=== PATIENT | female | born 1940 | race Caucasian/White ===

== ENCOUNTER 2016-10-24 13:07 | Observation (INO) | payer MEDICARE, MEDICAID ==
[~2016-10-24] VITALS: Ht 160 cm; Wt 91.0 kg
[~2016-10-24 13:07] MED LIST: ADULT LOW DOSE81 MG PO; ALBUTEROL-200 PUFFS/ IH; ALTOPREV20 MG PO; ASPIRIN 81MG TA81 MG PO; BACTROBAN2% TP; DYAZIDE CAP (M1 EACH PO; ETODOLAC400 MG PO; FERROUS GLUCON324 M1 PO; FLUTICASONE 50M16 GM; HYDROCORTI30 GM/TUB1 TP; IRON TABLETS325 MG PO; ISOSORBIDE MONO30 MG PO; LACTULOSE10 GM/15 M PO; LEVOTHYROXIN0.075 M1 PO; LIDOCAINE5 GM TP; LISINOPRIL 20MG20 MG PO; LOPRESSOR 25MG.25 MG PO; LOVASTATIN20 MG PO; MECLIZINE HYDRO25 MG PO; METOPROLOL25 MG PO; OMEPRAZOLE40 MG PO; POTASS CHL20 MEQ/15 NG; POTASS CHL20 MEQ/15 PO; RANEXA500 M1 PO; SERTRALINE 50MG50 MG PO; SERTRALINE25 MG PO; SYNTHROID 0.0.075 MG PO; TRAMADOL 50MG T50 M1 PO; TRIAMTERENE/HCT1 CA1 PO; VENTOLIN H0.09 MG/AC IH; ZOFRAN ODT4 MG PO
[2016-10-24 13:08] VITALS: BP 103/98
[2016-10-24] MEDS ORDERED: RANEXA500 M1 PO (13:18)
[2016-10-24] MEDS ORDERED: MECLIZINE HYDRO25 MG PO (13:19)
--- NOTE | 2016-10-24 13:27 | Emergency Room Report ---
See Addendum History of Present Illness Time Seen by MD Edmond Presenting Problem in Triage Pt arrived:Walked Presenting Problem:PT STATES SHE HAS HAD CHEST PAIN FOR THE PAST 2 WEEKS. PT DESCRIBES PAIN A DULL HURT THAT MOVES AROUND, NAUSEA AT TIMES. 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 N Clinical Suspician of Infection? N Mental Status: 1 - Regular (Normal Baseline) Sepsis Risk:Low Sepsis Risk Have you (or family members/close friends) recently traveled outside the [place]? N If Yes, where/when: Have you had exposure to infectious disease within the past month? TB? Other? Specify: Patient states she has some chest tightness and some intermittent shortness of breath and some nausea she states she has a stress test last about 1-2 years ago she denies any fever chills or cough. Eyes any pleuritic component to it denies any abdominal pain or headache she states currently she has some moderate tightness in the center of her chest no radiation. ALLERGIES Coded Allergies: Cephalosporins (Mild, 10/08/15) Quinolones (Mild, 10/08/15) cefuroxime (Mild, 10/08/15) cephalexin (From KEFLEX) (Mild, NA-NAUSEA 06/03/15) ciprofloxacin (From CIPRO) (Mild, NA-NAUSEA 06/03/15) levofloxacin (From LEVAQUIN) (Mild, I-RASH 06/03/15) morphine (Mild, NA-NAUSEA 06/03/15) penicillin G (Mild, 10/08/15) Home Medications Reported Medications Potassium Chloride 20 MEQ PO DAILY Hydrochlorothiazide W/Triamter (Triamterene-Hctz 37.5-25 MG Cp) 1 CAP PO DAILY Lovastatin 20 MG PO DAILY Isosorbide Mononitrate (Isosorbide Mononitrate ER) 30 MG PO DAILY Ferrous Gluconate 324 MG PO DAILY Albuterol (Albuterol-Hfa Inhaler) 2 PUFF IH Q4HP PRN SHORTNESS OF AIR Levothyroxine Sodium (Levothyroxine 0.075MG) 0.075 MG PO DAILY Omeprazole (Omeprazole 40MG) 40 MG PO DAILY ASPIRIN (Aspirin) 81 MG PO DAILY Isosorbide Mononitrate (Isosorbide Mononitrate ER) 30 MG PO DAILY LISINOPRIL (Lisinopril) 20 MG PO TWICE DAILY Metoprolol Tartrate (Metoprolol) 25 MG PO BID Sertraline Hcl (Sertraline 50MG) 25 MG PO DAILY TRAMADOL HCL (Tramadol) 50 MG PO TID PRN ALBUTEROL (Ventolin Hfa) 1 PUFF IH Q6H6 RANOLAZINE (RANEXA) 500 MG PO BID Meclizine Hcl (Meclizine Hydrochloride) 25 MG PO TIDP PRN DIZZY History Medical History General CAD? No Angina: No [place]: No Hypertension? Yes Hyperlipidemia? Yes COPD? Yes Asthma? Yes Thyroid Problems? Yes CVA? Yes Seizures? No Diabetes? No Migraines? Yes Anxiety? No Depression? Yes Cancer? No Immunization Hx DT/Tetanus Unknown Pneumonia Refuses Surgical Hx Previous Surgery?Y hysterectomy Cholecystectomy right arm surgery Family History Family Hx Diabetes No CAD No Hypertension No Hyperlipidemia No Cancer No TB No Social History Smoking Hx Smoker: Never Smoker Tobacco: No Alcohol Alcohol: No Review of Systems All Other Systems Reviewed and Negative Physical Exam Vital Signs Vital Signs Date Time Temp Pulse Resp B/P Pulse O2 O2 Flow FiO2 Ox Delivery Rate 10/24 1512 63 18 164/82 98 10/24 1308 73 18 103/98 98 General Appearance: Nontoxic morbidly obese Head: Normocephalic, without obvious abnormality, atraumatic. Eyes: conjunctiva/corneas clear ENT: Mucous membranes moist. Neck: No jugular venous distention. Cardiac: regular rate and rhythm Lungs: Clear to auscultation bilaterally Abdomen: Nontender, Nondistended, positive bowel sounds, no rebound : No CVA tenderness Extremities: Trace edema Musculoskeletal: No chest wall tenderness No Homans sign No calf tenderness No swelling in legs Skin: No rashes or lesions to exposed skin. Neurologic: Alert. No gross focal deficits Psychiatric: Normal affect (Ji CABRERA, Ronal) General Appearance normal appearance Respiratory Status No: respiratory distress. Cardiovascular no JVD Neurologic alert Medical Decision Making LABS/Meds/Orders Pt receiving controlled substance in ED? No Comment chest x-ray read as no acute disease by radiologist 343 call out to Mike Results/Orders Laboratory Tests 10/24/16 1315: B-Natriuretic Peptide 234 H 10/24/16 1315: Sodium 134 L, Potassium 3.4 L, Chloride 98, Carbon Dioxide 29, BUN 20 H, Creatinine 1.2 H, Estimated Creat Clear 57, Estimated GFR (MDRD) 44 L, Glucose 83, Calcium 10.2 H, Total Bilirubin 0.3, AST 19, ALT 22, Alkaline Phosphatase 71, Creatine Kinase 99, CK-MB (CK-2) Rel Index 2.4, CK and CKMB Interp 2.4, Troponin I < 0.02, Total Protein 7.6, Albumin 3.7, Globulin 3.9 H, Albumin/ Globulin Ratio 0.9 L, WBC 10.1, RBC 4.50, Hgb 11.7 L, Hct 34.6 L, MCV 76.9 L , RDW 16.5, Plt Count 213, Gran % 74.2, Gran # 7.5, Lymphocytes % 20.1, Monocytes % 5.7, Lymphocytes # 2.0, Monocytes # 0.6, PUBS MCHC 33.8, MCH 26.0 L Current Medication Orders Sig/Shala Start time Last Medication Dose Route Stop Time Status Admin Aspirin 0 .STK-MED ONE 10/24 1441 DC .ROUTE Aspirin 324 MG ONCE ONE 10/24 1330 DC 10/24 PO 10/24 1331 1443 Nitroglycerin 0.4 MG [id number] PRN 10/24 1330 AC SL Sodium Chloride 10 ML PRN PRN 10/24 1330 AC IV 10/25 1320 Orders Procedure Date/time Status BRAIN NATRIURETIC PEPTIDE 10/24 1328 Complete ELECTROCARDIOGRAM REQUEST 10/24 1320 Active IV SALINE LOCK 10/24 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 CBC WITH AUTO DIFF 10/24 1320 Complete CARDIAC ENZYMES 10/24 1320 Complete CHEM 12 PROFILE 10/24 1320 Complete 12 [facility]AD [facility] (INITIAL) 10/24 UNK 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
--- NOTE | 2016-10-24 13:27 | Emergency Room Report ---
See Addendum History of Present Illness Time Seen by MD Edmond Presenting Problem in Triage Pt arrived:Walked Presenting Problem:PT STATES SHE HAS HAD CHEST PAIN FOR THE PAST 2 WEEKS. PT DESCRIBES PAIN A DULL HURT THAT MOVES AROUND, NAUSEA AT TIMES. 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 N Clinical Suspician of Infection? N Mental Status: 1 - Regular (Normal Baseline) Sepsis Risk:Low Sepsis Risk Have you (or family members/close friends) recently traveled outside the [place]? N If Yes, where/when: Have you had exposure to infectious disease within the past month? TB? Other? Specify: Patient states she has some chest tightness and some intermittent shortness of breath and some nausea she states she has a stress test last about 1-2 years ago she denies any fever chills or cough. Eyes any pleuritic component to it denies any abdominal pain or headache she states currently she has some moderate tightness in the center of her chest no radiation. ALLERGIES Coded Allergies: Cephalosporins (Mild, 10/08/15) Quinolones (Mild, 10/08/15) cefuroxime (Mild, 10/08/15) cephalexin (From KEFLEX) (Mild, NA-NAUSEA 06/03/15) ciprofloxacin (From CIPRO) (Mild, NA-NAUSEA 06/03/15) levofloxacin (From LEVAQUIN) (Mild, I-RASH 06/03/15) morphine (Mild, NA-NAUSEA 06/03/15) penicillin G (Mild, 10/08/15) Home Medications Reported Medications Potassium Chloride 20 MEQ PO DAILY Hydrochlorothiazide W/Triamter (Triamterene-Hctz 37.5-25 MG Cp) 1 CAP PO DAILY Lovastatin 20 MG PO DAILY Isosorbide Mononitrate (Isosorbide Mononitrate ER) 30 MG PO DAILY Ferrous Gluconate 324 MG PO DAILY Albuterol (Albuterol-Hfa Inhaler) 2 PUFF IH Q4HP PRN SHORTNESS OF AIR Levothyroxine Sodium (Levothyroxine 0.075MG) 0.075 MG PO DAILY Omeprazole (Omeprazole 40MG) 40 MG PO DAILY ASPIRIN (Aspirin) 81 MG PO DAILY Isosorbide Mononitrate (Isosorbide Mononitrate ER) 30 MG PO DAILY LISINOPRIL (Lisinopril) 20 MG PO TWICE DAILY Metoprolol Tartrate (Metoprolol) 25 MG PO BID Sertraline Hcl (Sertraline 50MG) 25 MG PO DAILY TRAMADOL HCL (Tramadol) 50 MG PO TID PRN ALBUTEROL (Ventolin Hfa) 1 PUFF IH Q6H6 RANOLAZINE (RANEXA) 500 MG PO BID Meclizine Hcl (Meclizine Hydrochloride) 25 MG PO TIDP PRN DIZZY History Medical History General CAD? No Angina: No [place]: No Hypertension? Yes Hyperlipidemia? Yes COPD? Yes Asthma? Yes Thyroid Problems? Yes CVA? Yes Seizures? No Diabetes? No Migraines? Yes Anxiety? No Depression? Yes Cancer? No Immunization Hx DT/Tetanus Unknown Pneumonia Refuses Surgical Hx Previous Surgery?Y hysterectomy Cholecystectomy right arm surgery Family History Family Hx Diabetes No CAD No Hypertension No Hyperlipidemia No Cancer No TB No Social History Smoking Hx Smoker: Never Smoker Tobacco: No Alcohol Alcohol: No Review of Systems All Other Systems Reviewed and Negative Physical Exam Vital Signs Vital Signs Date Time Temp Pulse Resp B/P Pulse O2 O2 Flow FiO2 Ox Delivery Rate 10/24 1512 63 18 164/82 98 10/24 1308 73 18 103/98 98 General Appearance: Nontoxic morbidly obese Head: Normocephalic, without obvious abnormality, atraumatic. Eyes: conjunctiva/corneas clear ENT: Mucous membranes moist. Neck: No jugular venous distention. Cardiac: regular rate and rhythm Lungs: Clear to auscultation bilaterally Abdomen: Nontender, Nondistended, positive bowel sounds, no rebound : No CVA tenderness Extremities: Trace edema Musculoskeletal: No chest wall tenderness No Homans sign No calf tenderness No swelling in legs Skin: No rashes or lesions to exposed skin. Neurologic: Alert. No gross focal deficits Psychiatric: Normal affect (Ji CABRERA, Ronal) General Appearance normal appearance Respiratory Status No: respiratory distress. Cardiovascular no JVD Neurologic alert Medical Decision Making LABS/Meds/Orders Pt receiving controlled substance in ED? No Comment chest x-ray read as no acute disease by radiologist 343 call out to Mike Results/Orders Laboratory Tests 10/24/16 1315: B-Natriuretic Peptide 234 H 10/24/16 1315: Sodium 134 L, Potassium 3.4 L, Chloride 98, Carbon Dioxide 29, BUN 20 H, Creatinine 1.2 H, Estimated Creat Clear 57, Estimated GFR (MDRD) 44 L, Glucose 83, Calcium 10.2 H, Total Bilirubin 0.3, AST 19, ALT 22, Alkaline Phosphatase 71, Creatine Kinase 99, CK-MB (CK-2) Rel Index 2.4, CK and CKMB Interp 2.4, Troponin I < 0.02, Total Protein 7.6, Albumin 3.7, Globulin 3.9 H, Albumin/ Globulin Ratio 0.9 L, WBC 10.1, RBC 4.50, Hgb 11.7 L, Hct 34.6 L, MCV 76.9 L , RDW 16.5, Plt Count 213, Gran % 74.2, Gran # 7.5, Lymphocytes % 20.1, Monocytes % 5.7, Lymphocytes # 2.0, Monocytes # 0.6, PUBS MCHC 33.8, MCH 26.0 L Current Medication Orders Sig/Shala Start time Last Medication Dose Route Stop Time Status Admin Aspirin 0 .STK-MED ONE 10/24 1441 DC .ROUTE Aspirin 324 MG ONCE ONE 10/24 1330 DC 10/24 PO 10/24 1331 1443 Nitroglycerin 0.4 MG [id number] PRN 10/24 1330 AC SL Sodium Chloride 10 ML PRN PRN 10/24 1330 AC IV 10/25 1320 Orders Procedure Date/time Status BRAIN NATRIURETIC PEPTIDE 10/24 1328 Complete ELECTROCARDIOGRAM REQUEST 10/24 1320 Active IV SALINE LOCK 10/24 1320 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 CBC WITH AUTO DIFF 10/24 1320 Complete CARDIAC ENZYMES 10/24 1320 Complete CHEM 12 PROFILE 10/24 1320 Complete 12 LEAD EKG-[facility] (INITIAL) 10/24 UNK Active 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
[2016-10-24 13:30] LABS: HEMOGLOBIN 11.7 g/dL (12.2-16.2)
[2016-10-24 13:31] LABS: LYMPH % 20.1 % (10-50.0)
[2016-10-24 13:51] LABS: BUN 20 mg/dL (7-18); GFR (ESTIMATED) 44 ML/MIN (59-)
--- NOTE | 2016-10-24 14:11 | RADIOLOGY REPORT PS360 ---
CHEST-PORTABLE HISTORY: CHEST PAIN ORDERING PHYSICIAN: Ronal Workman MD PATIENT AGE: 76 years COMPARISON: 06/29/2008 FINDINGS: The cardiomediastinal silhouette and pulmonary vascularity are within normal limits. The lungs are clear without infiltrates, suspicious nodules, or pleural effusions. No acute bony abnormalities. Bone plate is present over the right proximal humerus IMPRESSION: No acute finding
--- OUTSIDE RECORDS SUMMARY | 2016-10-24 16:27 | External Medical Summary Rpt ---
Author Author , Organization [employer] Address Unknown Phone Unavailable Care Team Providers [facility] Counselor Name Role Phone [facility] Unavailable Unavailable ON ESDRAS, [facility] ON E[facility]RAS [facility] Unavailable Unavailable ON ESDRAS, [facility] ON ESDRAS HORNER ALL, HORNER ALL Unavailable Unavailable HORNER FLAKITA, HORNER FLAKITA Unavailable Unavailable [facility] Un[facility]available [facility], [facility] TESSIE AVTAR, TESSIE Unavailable Unavailable AVTAR [facility], Unavailable Unavailable [facility] JOSE GARCIA Unavailable Unavailable GARCIA EMERY, GARCIA Unavailable Unavailable EMERY [facility], Unavailable Unavailable [facility] ALMAGUER ANNAMARIE, ALMAGUER ANNAMARIE Unavailable Unavailable CHACHO FREDDY, Unavailable Unavailable CHACHO FREDDY [facility] Unavailable Unavailable [facility], [facility] MC II THO, MC II Unavailable Unavailable THO FALLIS PLACIDO, FALLIS Unavailable Unavailable PL[facility] Unavailable Unavailable TRANSP[facility]ATION [facility], [facility] FRYMAN, FRYMAN Unavailable Unavailable YOLANDA LEIGHTON, YOLANDA Unavailable Unavailable LEIGHTON RACHEL RHO, RACHEL Unavailable Unavailable RHO [facility] Un[facility] Un[facility], [facility], Unavailable Unavailable [facility] PHYS[facility]IAN GROUP [facility], Unavailable Unavailable [facility] MARLOW CAROLA, MARLOW CAROLA Unavailable Unavailable [facility] Unavailable Unavailable MEDICAL G, [facility] Unavailable Unavailable [facility], [facility] Unavailable Unavailable [facility], [facility] ARELLANO, ARELLANO Unavailable Unavailable ARELLANO MONSTER, ARELLANO Unavailable Unavailable MONSTER ARELLANO MONSTER, ARELLANO Unavailable Unavailable MONSTER DRU JR DWI, DRU Unavailable Unavailable JR DWI CHUCKIE ART, CHUCKIE Unavailable Unavailable ART PEARCE JAM, Unavailable Unavailable PEARCE JAM [facility] Unavailable Unavailable AMBULANCE SE, [facility] Unavailable Unavailable AMBULANCE SE, [facility], N[facility]UC[facility] Unavailable Unavailable [facility] ANNAMARIE ALMAGUER MD Unavailable Unavailable CONSULTING SRV, ANNAMARIE ALMAGUER MD CONSULTING SRV [facility], Unavailable Unavailable PLL[facility], [facility] PAVEZ MAR, PAVEZ MAR Unavailable Unavailable ISAM TOD, ISMA TOD Unavailable Unavailable SCALF NAS, SCALF NAS Unavailable Unavailable NAE LEIGHTON, Unavailable Unavailable NAE LEIGHTON SCIFRES, SCIFRES Unavailable Unavailable KOHLI SERA, KOHLI Unavailable Unavailable SERA KLAIN, KALIN Unavailable Unavailable KALIN MAT, Unavailable Unavailable KALIN MAT [facility] Unavailable Unavailable [facility], [facility] Unavailable Unavailable [facility], [facility] SOTINGEANU SERA, Unavailable Unavailable SOTINGEANU SERA [facility] Unavailable Unavailable [facility], [facility] Unavailable Unavailable MELLY, [facility] MELLY BILLY, BILLY Unavailable Unavailable BILLY RAY, BILLY Unavailable Unavailable [facility] Unavailable Unavailable HOSPITALS, [facility], Unavailable Unavailable [facility], Unavailable [facility]available [facility], Unavailable [facility]available [facility] Purpose Continuity of Care Document - 06-01-2014 through 2016 Problems Code Diagnosis DOS Provider Status J449 CHRONIC 10-03-2016 [facility] DISEASE UNS I10 ESSENTIAL 09-27-2016 [facility] PRIMARY AREA AGENCY HYPERTENSIO ON ESDRAS N E039 HYPOTHYROID 09-22-2016 [facility] ISM PHYSICIANS UNSPECIFIED GROUP [id number] OTHER 09-10-2016 [facility] N3281 OVERACTIVE 09-03-2016 [facility] BLADDER PHYSICIANS GROUP N3941 URGE 09-03-2016 [facility] INCONTINENC PHYSICIANS E GROUP H2513 AGE-RELATED 08-18-2016 [facility] BILATERAL R922 INCONCLUSIV 07-31-2016 [facility] R928 OTH ABNORM 07-31-2016 [place] [facility] IMAGING ASS E FIND ON DX IMAG BREAST E785 HYPERLIPIDE 07-09-2016 [facility] RADHA PHYSICIANS UNSPECIFIED GROUP R0789 OTHER CHEST 07-09-2016 [facility] PAIN PHYSICIANS GROUP R69 ILLNESS 07-09-2016 [facility] UNSPECIFIED TRANSPORTAT ION SER K219 GASTRO-ESOP 06-30-2016 [facility] REFLUX HEALTHCARE DISEASE HOSPITALS WITHOUT ESOPHAGITIS 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 [facility] GOITER PHYSICIAN UNSPECIFIED GROUP E069 THYROIDITIS 06-18-2016 [facility] PHYSICIAN UNSPECIFIED GROUP E8352 HYPERCALCEM 06-18-2016 [facility] IA PHYSICIAN GROUP 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 06-18-2016 [facility] 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 ANGINA PECTORIS K469 UNS 06-18-2016 [facility] ABDOMINAL PHYSICIAN HERNIA W/O GROUP OBSTRUCTION OR GANGRENE N3946 MIXED 06-18-2016 [facility] INCONTINENC PHYSICIANS E GROUP E119 TYPE 2 04-22-2016 [facility] DIABETES [facility] MELLITUS INC WITHOUT COMPLICATIO NS E669 OBESITY 04-22-2016 [facility] UNSPECIFIED PHYSICIANS GROUP R0602 SHORTNESS 04-22-2016 [facility] OF BREATH [facility] INC T26162 UNSPECIFIED 04-18-2016 [facility] UNCOMPLICAT MEDICAL ED EQUIPME R0600 DYSPNEA 04-15-2016 [facility] UNSPECIFIED PHYSICIANS GROUP R110 NAUSEA 03-31-2016 [facility] AMBULANCE SE R42 DIZZINESS 03-31-2016 [facility] AMBULANCE SE M150 PRIMARY 03-03-2016 [facility] GENERALIZED HOME MEDICAL OSTEOARTHRI EQUIPME TIS M533 SACROCOCCYG 03-03-2016 [facility] EAL HOME DISORDERS MEDICAL NEC EQUIPME M549 DORSALGIA 03-03-2016 [facility] UNSPECIFIED HOME MEDICAL EQUIPME R06078 DIFFUSE 02-28-2016 ARELLANO MONSTER OTITIS EXTERNA BILATERAL H6903 PATULOUS 02-28-2016 ARELLANO MONSTER EUSTACHIAN TUBE BILATERAL H905 UNSPECIFIED 02-28-2016 [facility] PHYSICIANS SENSORINEUR GROUP AL HEARING LOSS G4733 OBSTRUCTIVE 02-27-2016 [facility] SLEEP HOME APNEA ADULT MEDICAL PEDIATRIC EQUIPME R079 CHEST PAIN 02-14-2016 [facility] UNSPECIFIED [facility] INC G4730 SLEEP APNEA 02-12-2016 [facility] UNSPECIFIED INC H6590 UNSPECIFIED 02-01-2016 [facility] PHYSICIANS NONSUPPURAT GROUP MIGUE OTITIS MEDIA UNS EAR R040 EPISTAXIS 02-01-2016 [facility] PHYSICIANS GROUP Z1231 ENCOUNTER 01-25-2016 [facility] MALIG IMAGING ASS NEOPLASM BREAST G8929 OTHER 01-07-2016 [facility] CHRONIC PHYSICIANS PAIN GROUP D649 ANEMIA 12-27-2015 [facility] J342 DEVIATED 12-13-2015 [facility] NASAL PHYSICIANS SEPTUM GROUP I351 NONRHEUMATI 12-07-2015 [facility] INSUFFICIEN CY I358 OTHER 12-07-2015 [facility] NONRHEUMATI MEM [facility]OS[facility] C AORTIC INC VALVE DISORDERS J432 CENTRILOBUL 12-07-2015 [facility] EMPHYSEMA IMAGING ASS J984 OTHER 12-07-2015 [facility] DISORDERS [facility] OF LUNG INC Z862 PERSONAL HX 12-07-2015 [facility] DZ [facility] BLOOD&BLOOD INC FORM ORGN IMMUNE MECH B351 TINEA 11-29-2015 [facility] PLACIDO UNGUIUM I890 LYMPHEDEMA 11-29-2015 [facility] NOT ELSEWHERE CLASSIFIED M2570 OSTEOPHYTE 11-29-2015 [place] [facility] UNSPECIFIED JOINT A71835 PAIN IN 11-29-2015 [place] [facility] RIGHT TOES S40704 PAIN IN 11-29-2015 [place] [facility] LEFT TOES F18386 PRIMARY 11-28-2015 [place] OSTEOARTHRI [facility]ICAL TIS RIGHT IMAGING ASS HAND S02886 PAIN IN 11-28-2015 [place] RIGHT HAND MEDICAL IMAGING ASS M7989 OTHER 11-28-2015 [place] SPECIFIED MEDICAL SOFT TISSUE IMAGING ASS DISORDERS R0902 HYPOXEMIA 11-28-2015 [facility] R109 UNSPECIFIED 11-28-2015 [facility] ABDOMINAL SERV PAIN [facility]OUND[facility] H3531LZ UNS FX RT 11-28-2015 [facility] WRIST HAND SERV INITIAL ENC FOUNDATION CLOS FRACTURE Z8673 PERSONAL HX 11-28-2015 [facility] TIA & MEM [facility]OS[facility] CEREB INC INFARCT NO RESID DEFICIT G85787 PERSONAL 11-28-2015 [facility] HISTORY OF MEM HOS[facility] OTHER INC SPECIFIED CONDITIONS H6092 UNSPECIFIED 11-22-2015 [facility] OTITIS PHYSICIANS EXTERNA GROUP LEFT EAR J029 ACUTE 11-22-2015 [facility] PHARYNGITIS PHYSICIANS GROUP UNSPECIFIED L989 DISORDER 11-19-2015 [facility] THE SKIN & PHYSICIANS SUBCUTANEOU GROUP S TISSUE UNS I209 ANGINA 11-13-2015 [facility] PECTORIS PHYSICIANS UNSPECIFIED GROUP B50283 PERSONAL 10-24-2015 [facility] SERV NICOTINE FOUNDATION DEPENDENCE O29228 ASHD TLINGIT & HAIDA 10-08-2015 [facility] COR ARTREY PHYSICIANS W/UNS GROUP ANGINA PECTORIS B078 OTHER VIRAL 09-27-2015 [facility] WARTS A43903 PAIN IN 09-27-2015 [place] [facility] LEFT FOOT N952 POSTMENOPAU 08-29-2015 [facility] TIFFANY PHYSICIANS ATROPHIC GROUP VAGINITIS R350 FREQUENCY 08-29-2015 [facility] OF PHYSICIANS MICTURITION GROUP R351 NOCTURIA 08-29-2015 [facility] PHYSICIANS GROUP E042 NONTOXIC 07-18-2015 [place] MULTINODULA MEDICAL R GOITER IMAGING ASS M88275 PAIN IN 06-04-2015 [facility] RIGHT LEG [facility] INC Y51775 PAIN IN 06-04-2015 [place] RIGHT LOWER MEDICAL LEG IMAGING ASS W43212 ACUTE EMBO 06-03-2015 [facility] THROMB UNS [facility] DEEP VEINS INC RT LOWER EXTREM L309 DERMATITIS 06-03-2015 [facility] UNSPECIFIED MEM HOS[facility] INC A57428 PAIN IN 06-03-2015 [facility] E780 PURE 05-28-2015 [facility] H8110 BENIGN 05-28-2015 [facility] UNSPECIFIED EAR H8112 BENIGN 05-28-2015 [facility] PAROXYSMAL N EMERGENCY VERTIGO PHYS LEFT EAR Z7982 FCI 05-28-2015 [place] CURRENT [facility] Y79851 OTHER LONG 05-28-2015 [facility] DRUG THERAPY G4710 HYPERSOMNIA 05-01-2015 ANNAMARIE ALMAGUER MD UNSPECIFIED CONSULTING SRV G478 OTHER SLEEP 04-28-2015 [facility] M5383 OTHER SPEC 04-28-2015 [place] [facility] CERVICOTHOR ACIC REGION R0683 SNORING 04-28-2015 [facility] E041 NONTOXIC 04-04-2015 [facility] THYROID INC NODULE 2449 UNSPECIFIED 02-16-2015 [facility] HYPOTHYROID IMAGING ASS ISM 62910 DYSPHAGIA 02-16-2015 [place] UNSPECIFIED [facility]ICAL IMAGING ASS 4139 OTHER AND 02-14-2015 [facility] UNSPECIFIED HEALTH ANGINA MEDICAL G PECTORIS 90923 CHEST PAIN 02-14-2015 [facility] UNSPECIFIED HEALTH MEDICAL G 2720 PURE 02-04-2015 [facility] 4019 UNSPECIFIED 02-04-2015 [place] ESSENTIAL [facility] N 496 CHRONIC 02-04-2015 [place] AIRWAY [facility] OBSTRUCTION HOSPITAL NEC 89615 ESOPHAGEAL 02-04-2015 [place] REFLUX [facility] 7804 DIZZINESS 02-04-2015 [facility] N EMERGENCY GIDDINESS PHYS 26004 NAUSEA WITH 02-04-2015 [place] VOMITING [facility] V5869 LONG-TERM 02-04-2015 [place] (CURRENT) [facility]ITY USE OF HOSPITAL OTHER MEDICATIONS 16362 GEN 02-01-2015 [facility] OSTEOARTHRO HOME SIS MEDICAL INVOLVING EQUIPME MULTIPLE SITES 7245 UNSPECIFIED 02-01-2015 [facility] BACKACHE HOME MEDICAL EQUIPME 22160 OTHER 02-01-2015 [facility] DISORDER OF HOME COCCYX MEDICAL EQUIPME 91866 UNSPECIFIED 01-05-2015 [facility] URINARY HOME INCONTINENC MEDICAL E EQUIPME 09325 VOMITING 10-25-2014 [place] ALONE [facility] V5866 LONG-TERM 10-25-2014 [place] USE OF [facility] 7295 PAIN IN 10-20-2014 [facility] [place] SOFT [facility] TISSUES OF LIMB 9594 INJURY 10-20-2014 [place] OTHER AND COMMUNITY UNSPECIFIED HOSPITAL HAND EXCEPT FINGER 4659 ACUTE URIS 09-28-2014 [place] OF COMMUNITY UNSPECIFIED HOSPITAL SITE 24152 PAIN IN 09-28-2014 [facility] [place] JOINT, RADIOLOGY LOWER LEG 75164 DEHYDRATION 07-31-2014 [facility] N EMERGENCY PHYS 2768 HYPOPOTASSE 07-31-2014 [facility] RADHA N EMERGENCY PHYS 4660 ACUTE 07-31-2014 [facility] BRONCHITIS N EMERGENCY PHYS 19163 OTHER CHEST 07-31-2014 [facility] PAIN N EMERGENCY PHYS V143 PERSONAL 07-31-2014 [place] HISTORY [facility] ANTI-INFECT MIGUE AGT V146 PERSONAL 07-31-2014 [place] HISTORY OF COMMUNITY ALLERGY TO HOSPITAL ANALGESIC AGENT 7851 PALPITATION 07-25-2014 ANNAMARIE Rose MD CONSULTING SRV 4011 ESSENTIAL 07-20-2014 [place] HYPERTENSIO [facility] 7197 DIFFICULTY 07-20-2014 [place] IN WALKING [facility] 34247 SHORTNESS 07-20-2014 ANNAMARIE ALMAGUER OF BRE[place] SRV 97257 PRECORDIAL 07-20-2014 ANNAMARIE ROSINA [place]V 26142 OCCLUSION&S 07-04-2014 ANNAMARIE DIOP MD CAROTID ART CONSULTING W/O SRV MENTION INFARCT 2809 UNSPECIFIED 06-23-2014 [facility] IRON [facility] DEFICIENCY HOLDINGS ANEMIA 5939 UNSPECIFIED 06-23-2014 [facility] DISORDER [facility] OF KIDNEY HOLDINGS AND URETER 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 E8889 UNSPECIFIED 06-02-2014 [facility] FALL [facility] HOLDINGS 8470 NECK SPRAIN 06-01-2014 [facility] STRAIN N EMERGENCY PHYS 920 CONTUSION 06-01-2014 [facility] FACE N EMERGENCY SCALP AND PHYS NECK EXCEPT EYE 9219 UNSPECIFIED 06-01-2014 [facility] CONTUSION N EMERGENCY OF EYE PHYS 77294 CONTUSION 06-01-2014 [facility] OF HAND N EMERGENCY PHYS 9248 CONTUSION 06-01-2014 [place] OF [facility] COMMUNITY SITES [facility] 42207 INJURY OF 06-01-2014 [facility] [place] FACE AND RADIOLOGY NECK OTHER AND UNSPECIFIED 44731 OTHER 06-01-2014 [facility] [place] INJURY OF RADIOLOGY CHEST WALL 9596 INJURY 06-01-2014 [facility] [place] OTHER AND RADIOLOGY UNSPECIFIED HIP AND THIGH V1582 PERS HX 06-01-2014 [place] TOBACCO USE [facility] HEALTH 786.50 E03.9 HYPOTHYROID ISM, UNSPECIFIED E83.52 HYPERCALCEM IA I10 ESSENTIAL (PRIMARY) HYPERTENSIO N I82.409 ACUTE EMBOLISM AND THOMBOS UNSP DEEP VN UNSP LOWER EXTREMITY J98.4 OTHER DISORDERS OF LUNG L30.9 DERMATITIS, UNSPECIFIED M17.12 UNILATERAL PRIMARY OSTEOARTHRI TIS, LEFT KNEE R01.1 CARDIAC MURMUR, UNSPECIFIED R07.9 CHEST PAIN, UNSPECIFIED R51 HEADACHE S80.02XA CONTUSION OF LEFT KNEE, INITIAL ENCOUNTER Z12.31 ENCNTR SCREEN MAMMOGRAM FOR MALIGNANT NEOPLASM OF BREAST Allergies, Adverse Reactions, Alerts Clinical Alert Notifications Alert Asthma: no influenza vaccine in the last 365 days Diabetes: no A1C in the last 6 months Diabetes: no influenza vaccine in the last 365 days Diabetes: no urine protein screening in the last 365 days Procedures Procedure DOS Code Location Performer Comment IPRATROPI J7644 YOUR YOUR UM 7 PHARMACY PHARMACY [facility] [employer] INHAL NON-CP U DOSE PER MG PHRM Q0513 YOUR YOUR DISPENSIN 7 PHARMACY PHARMACY G FEE [employer] INHALATIO N RX; PER 30 DAYS HOME CARE S5108 [employer] TRAINING 7 [facility] HOME AGENCY ON AGENCY ON CARE ESDRAS ESDRAS CLIENT PER 15 MIN HOME CARE S5108 [employer] TRAINING 7 [facility] AGENCY ON AGENCY ON CARE ESDRAS ESDRAS CLIENT PER 15 MIN HOME CARE S5108 [facility] TRA[facility] 7 ARE[facility] HOME AGENCY ON AGENCY ON CARE ESDRAS ESDRAS CLIENT PER 15 MIN HOME CARE S5108 [facility] TRAINING 7 ARE[facility] ARE[facility] HOME AGENCY ON AGENCY ON CARE ESDRAS ESDRAS CLIENT PER 15 MIN HOME CARE S5108 [facility] TRAINING 7 AREA AREA HOME AGENCY ON AGENCY ON CARE ESDRAS ESDRAS CLIENT PER 15 MIN HOME CARE S5108 [facility] TRAINING 7 AREA AREA HOME AGENCY ON AGENCY ON CARE ESDRAS ESDRAS CLIENT PER 15 MIN HOME CARE S5108 [facility] TRAINING 7 AREA AREA HOME AGENCY ON AGENCY ON CARE ESDRAS ESDRAS CLIENT PER 15 MIN HOME CARE S5108 [facility] TRAINING 7 AREA AREA HOME AGENCY ON AGENCY ON CARE ESDRAS ESDRAS CLIENT PER 15 MIN HOME CARE S5108 [facility] TRAINING 7 AREA AREA HOME AGENCY ON AGENCY ON CARE ESDRAS ESDRAS CLIENT PER 15 MIN HOME CARE S5108 [facility] TRAINING 7 AREA AREA HOME AGENCY ON AGENCY ON CARE ESDRAS ESDRAS CLIENT PER 15 MIN HOME CARE S5108 [facility] TRAINING 7 AREA AREA HOME AGENCY ON AGENCY ON CARE ESDRAS ESDRAS CLIENT PER 15 MIN HOME CARE S5108 [facility] TRAINING 7 AREA AREA HOME AGENCY ON AGENCY ON CARE ESDRAS ESDRAS CLIENT PER 15 MIN HOME CARE S5108 [facility] TRAINING 7 AREA AREA HOME AGENCY ON AGENCY ON CARE ESDRAS ESDRAS CLIENT PER 15 MIN HOME CARE S5108 [facility] TRAINING 7 AREA AREA HOME AGENCY ON AGENCY ON CARE ESDRAS ESDRAS CLIENT PER 15 MIN HOME CARE S5108 [facility] TRAINING 7 AREA AREA HOME AGENCY ON AGENCY ON CARE ESDRAS ESDRAS CLIENT PER 15 MIN HOME CARE S5108 [facility] TRAINING 7 AREA AREA HOME AGENCY ON AGENCY ON CARE ESDRAS ESDRAS CLIENT PER 15 MIN HOME CARE S5108 [facility] TRAINING 7 AREA AREA HOME AGENCY ON AGENCY ON CARE ESDRAS ESDRAS CLIENT PER 15 MIN HOME CARE S5108 [facility] [employer] TRAINING 7 AREA AREA HOME AGENCY ON AGENCY ON CARE ESDRAS ESDRAS CLIENT PER 15 MIN FILTER A7013 [facility] CHRISTIANSON DISPOSABL 7 HOME HOME MEDICAL MEDICAL W/AREOSOL EQUIPME EQUIPME COMPRESS/ US GENERATOR COLLECTIO 59934 [facility] PIRES N VENOUS 7 [facility] [place] [address] [facility] PIRES FREE 7 [facility] [place] [address] [facility] PIRES THYROID 7 [facility] STIMULATI INC INC NG HORMONE TSH HOME CARE S5108 [facility] [employer] TRAINING 7 AREA AREA HOME AGENCY ON AGENCY ON CARE ESDRAS ESDRAS CLIENT PER 15 MIN MISC TX T1999 [facility] ITEMS & 7 AREA AREA SPL AGENCY ON AGENCY ON RETAIL ESDRAS ESDRAS PURCHASE NOC HOME CARE S5108 [facility] TRAINING 7 AREA AREA HOME AGENCY ON AGENCY ON CARE ESDRAS ESDRAS CLIENT PER 15 MIN FILTER A7013 YOUR YOUR DISPOSABL 7 PHARMACY PH[facility]ACY LLC LLC W/AREOSOL COMPRESS/ US GENERATOR AREO MASK A7015 YOUR YOUR USED W/ 7 PHARMACY PHARMACY [facility] HOME CARE S5108 [facility] TRAINING 7 AREA AREA HOME AGENCY ON AGENCY ON CARE ESDRAS ESDRAS CLIENT PER 15 MIN HOME CARE S5108 [facility] TRAINING 7 AREA AREA HOME AGENCY ON AGENCY ON CARE ESDRAS ESDRAS CLIENT PER 15 MIN HOME CARE S5108 [facility] TRAINING 7 AREA AREA HOME AGENCY ON AGENCY ON CARE ESDRAS ESDRAS CLIENT PER 15 MIN HOME CARE S5108 [facility] TRAINING 7 AREA AREA HOME AGENCY ON AGENCY ON CARE ESDRAS ESDRAS CLIENT PER 15 MIN HOME CARE S5108 [facility] TRAINING 7 AREA AREA HOME AGENCY ON AGENCY ON CARE ESDRAS ESDRAS CLIENT PER 15 MIN HOME CARE S5108 [facility] TRAINING 7 AREA AREA HOME AGENCY ON AGENCY ON CARE ESDRAS ESDRAS CLIENT PER 15 MIN HOME CARE S5108 [facility] TRAINING 7 AREA AREA HOME AGENCY ON AGENCY ON CARE ESDRAS ESDRAS CLIENT PER 15 MIN HOME CARE S5108 [facility] TRAINING 7 AREA AREA HOME AGENCY ON AGENCY ON CARE ESDRAS ESDRAS CLIENT PER 15 MIN HOME CARE S5108 [facility] TRAINING 7 AREA AREA HOME AGENCY ON AGENCY ON CARE ESDRAS ESDRAS CLIENT PER 15 MIN HOME CARE S5108 [facility] TRAINING 7 AREA AREA HOME AGENCY ON AGENCY ON CARE ESDRAS ESDRAS CLIENT PER 15 MIN HOME CARE S5108 [facility] TRAINING 7 AREA AREA HOME AGENCY ON AGENCY ON CARE ESDRAS ESDRAS CLIENT PER 15 MIN HOME CARE S5108 [facility] TRAINING 7 AREA AREA HOME AGENCY ON AGENCY ON CARE ESDRAS ESDRAS CLIENT PER 15 MIN HOME CARE S5108 [facility] TRAINING 7 AREA AREA HOME AGENCY ON AGENCY ON CARE ESDRAS ESDRAS CLIENT PER 15 MIN HOME CARE S5108 [facility] TRAINING 7 AREA AREA HOME AGENCY ON AGENCY ON CARE ESDRAS ESDRAS CLIENT PER 15 MIN HOME CARE S5108 [facility] TRAINING 7 AREA AREA HOME AGENCY ON AGENCY ON CARE ESDRAS ESDRAS CLIENT PER 15 MIN [facility] T1999 [facility] ITEMS & 7 AREA AREA SPL AGENCY ON AGENCY ON RETAIL ESDRAS ESDRAS PURCHASE NOC HOME CARE S5108 [facility] TRAINING 7 AREA AREA HOME AGENCY ON AGENCY ON CARE ESDRAS ESDRAS CLIENT PER 15 MIN HOME CARE S5108 [facility] TRAINING 7 AREA AREA HOME AGENCY ON AGENCY ON CARE ESDRAS ESDRAS CLIENT PER 15 MIN HOME CARE S5108 [facility] TRAINING 7 AREA AREA HOME AGENCY ON AGENCY ON CARE ESDRAS ESDRAS CLIENT PER 15 MIN HOME CARE S5108 [facility] 7 AREA AREA HOME AGENCY ON AGENCY ON CARE ESDRAS ESDRAS CLIENT PER 15 MIN HOME CARE S5108 [facility] 7 AREA AREA HOME AGENCY ON AGENCY ON CARE ESDRAS ESDRAS CLIENT PER 15 MIN HOME CARE S5108 [facility] 7 AREA AREA HOME AGENCY ON AGENCY ON CARE ESDRAS ESDRAS CLIENT PER 15 MIN [facility]PH [id number] [facility]&EVAL CENTER COMPRHNSV ESTAB PT 1/> HOME CARE S5108 [facility] 7 AREA AREA HOME AGENCY ON AGENCY ON CARE ESDRAS ESDRAS CLIENT PER 15 MIN HOME CARE S5108 [facility] 7 AREA AREA HOME AGENCY ON AGENCY ON CARE ESDRAS ESDRAS CLIENT PER 15 MIN HOME CARE S5108 [facility] 7 AREA AREA HOME AGENCY ON AGENCY ON CARE ESDRAS ESDRAS CLIENT PER 15 MIN HOME CARE S5108 [facility] 7 AREA AREA HOME AGENCY ON AGENCY ON CARE ESDRAS ESDRAS CLIENT PER 15 MIN HOME CARE S5108 [facility] 7 AREA AREA HOME AGENCY ON AGENCY ON CARE ESDRAS ESDRAS CLIENT PER 15 MIN HOME CARE S5108 [facility] 7 AREA AREA HOME AGENCY ON AGENCY ON CARE ESDRAS ESDRAS CLIENT PER 15 MIN HOME CARE S5108 [facility] 7 AREA AREA HOME AGENCY ON AGENCY ON CARE ESDRAS ESDRAS CLIENT PER 15 MIN HOME CARE S5108 [facility] 7 AREA AREA HOME AGENCY ON AGENCY ON CARE ESDRAS ESDRAS CLIENT PER 15 MIN HOME CARE S5108 [facility] 7 AREA AREA HOME AGENCY ON AGENCY ON CARE ESDRAS ESDRAS CLIENT PER 15 MIN HOME CARE S5108 [facility] 7 AREA AREA HOME AGENCY ON AGENCY ON CARE ESDRAS ESDRAS CLIENT PER 15 MIN PHRM Q0513 YOUR YOUR DISPENSIN 7 PHARMACY PHARMACY G FEE [employer] INHALATIO N RX; PER 30 DAYS ADMN SET A7005 YOUR YOUR W/SM VOL 7 PHARMACY PHARMACY NONFILTR [employer] NEBULIZR NON-DISPB L IPRATROPI [id number] YOUR YOUR UM 7 PHARMACY PHARMACY BROMIDE [employer] INHAL NON-CP U DOSE PER MG HOME CARE S5108 [facility] 7 AREA AREA HOME AGENCY ON AGENCY ON CARE ESDRAS ESDRAS CLIENT PER 15 MIN HOME CARE S5108 [facility] 7 AREA AREA HOME AGENCY ON AGENCY ON CARE ESDRAS ESDRAS CLIENT PER 15 MIN HOME CARE S5108 [facility] 7 AREA AREA HOME AGENCY ON AGENCY ON CARE ESDRAS ESDRAS CLIENT PER 15 MIN MISC [place] T1999 [facility] & 7 AREA [facility] AGENC[facility] ON AGENCY ON RETAIL ESDRAS ESDRAS PURCHASE NOC HOME CARE S5108 [facility] TRAINING 7 AREA AREA HOME AGENCY ON AGENCY ON CARE ESDRAS ESDRAS CLIENT PER 15 MIN HOME CARE S5108 [facility] TRA[facility]ING 7 AREA AREA HOME AGENCY ON AGENCY ON CARE ESDRAS ESDRAS CLIENT PER 15 MIN HOME CARE S5108 [facility] TRAINING 7 AREA AREA HOME AGENCY ON AGENCY ON CARE ESDRAS ESDRAS CLIENT PER 15 MIN HOME CARE S5108 [facility] TRAINING 7 AREA AREA HOME AGENCY ON AGENCY ON CARE ESDRAS ESDRAS CLIENT PER 15 MIN HOME CARE S5108 [facility] TRAINING 7 AREA AREA HOME AGENCY ON AGENCY ON CARE ESDRAS ESDRAS CLIENT PER 15 MIN DIAGNOSTI [id number] PRANAY [facility] MAMMO[facility]AP INC INC HY INCL CAD WHEN PERF; UNI HOME CARE S5108 [facility] TRAINING 7 AREA AREA HOME AGENCY ON AGENCY ON CARE ESDRAS ESDRAS CLIENT PER 15 MIN HOME CARE S5108 [facility] TRAINING 7 AREA AREA HOME AGENCY ON AGENCY ON CARE ESDRAS ESDRAS CLIENT PER 15 MIN HOME CARE S5108 [facility] TRAINING 7 AREA AREA HOME AGENCY ON AGENCY ON CARE ESDRAS ESDRAS CLIENT PER 15 MIN HOME CARE S5108 [facility] [facility] TRAINING 7 AREA AREA HOME AGENCY ON AGENCY ON CARE ESDRAS ESDRAS CLIENT PER 15 MIN HOME CARE S5108 [facility] TRAINING 7 AREA AREA HOME AGENCY ON AGENCY ON CARE ESDRAS ESDRAS CLIENT PER 15 MIN HOME CARE S5108 [facility] TRAINING 7 AREA AREA HOME AGENCY ON AGENCY ON CARE ESDRAS ESDRAS CLIENT PER 15 MIN HOME CARE S5108 [facility] TRAINING 7 AREA AREA HOME AGENCY ON AGENCY ON CARE ESDRAS ESDRAS CLIENT PER 15 MIN HOME CARE S5108 [facility] TRAINING 7 AREA AREA HOME AGENCY ON AGENCY ON CARE ESDRAS ESDRAS CLIENT PER 15 MIN HOME CARE S5108 [facility] TRAINING 7 AREA AREA HOME AGENCY ON AGENCY ON CARE ESDRAS ESDRAS CLIENT PER 15 MIN HOME CARE S5108 [facility] TRAINING 7 AREA AREA HOME AGENCY ON AGENCY ON CARE ESDRAS ESDRAS CLIENT PER 15 MIN HOME CARE S5108 [facility] TRAINING 7 AREA AREA HOME AGENCY ON AGENCY ON CARE ESDRAS ESDRAS CLIENT PER 15 MIN HOME CARE S5108 [facility] TRAINING 7 AREA AREA HOME AGENCY ON AGENCY ON CARE ESDRAS ESDRAS CLIENT PER 15 MIN HOME CARE S5108 [facility] [facility] TRAINING 7 AREA AREA HOME AGENCY ON AGENCY ON CARE ESDRAS ESDRAS CLIENT PER 15 MIN HOME CARE S5108 [facility] [facility] TRAINING 7 AREA AREA HOME AGENCY ON AGENCY ON CARE ESDRAS ESDRAS CLIENT PER 15 MIN HOME CARE S5108 [facility] [facility] TRAINING 7 AREA AREA HOME AGENCY ON AGENCY ON CARE ESDRAS ESDRAS CLIENT PER 15 MIN HOME CARE S5108 [facility] [facility] TRAINING 7 AREA AREA HOME AGENCY ON AGENCY ON CARE ESDRAS ESDRAS CLIENT PER 15 MIN HOME CARE S5108 [facility] [facility] TRAINING 7 AREA AREA HOME AGENCY ON AGENCY ON CARE ESDRAS ESDRAS CLIENT PER 15 MIN HOME CARE S5108 [facility] TRAINING 7 AREA AREA HOME AGENCY ON AGENCY ON CARE ESDRAS ESDRAS CLIENT PER 15 MIN HOME CARE S5108 [facility] TRAINING 7 AREA AREA HOME AGENCY ON AGENCY ON CARE ESDRAS ESDRAS CLIENT PER 15 MIN FILTER A7013 SAMMY CHRISTIANSON DISPOSABL 7 HOME HOME MEDICAL MEDICAL W/AREOSOL EQUIPME EQUIPME COMPRESS/ US GENERATOR NONEMERG A0120 FEDERATED FEDERATED TRNSPRT: 7 [facility] TRANSPORT TRANSPORT MTN ATION SER ATION SER AREA/OTH SYS ECG [id number] PRANAY PIRES ROUTINE 7 [facility] ECG INC INC W/LEAST 12 LDS TRCG ONLY W/O I&R HOME CARE S5108 [facility] TRAINING 7 AREA AREA HOME AGENCY ON AGENCY ON CARE ESDRAS ESDRAS CLIENT PER 15 MIN MISC TX T1999 [facility] ITEMS & 7 AREA AREA SPL AGENCY ON AGENCY ON RETAIL ESDRAS ESDRAS PURCHASE NOC HOME CARE S5108 [facility] TRAINING 7 AREA AREA HOME AGENCY ON AGENCY ON CARE ESDRAS ESDRAS CLIENT PER 15 MIN HOME CARE S5108 [facility] TRAINING 7 AREA AREA HOME AGENCY ON AGENCY ON CARE ESDRAS ESDRAS CLIENT PER 15 MIN NONEMERG A0120 FEDERATED FEDERATED TRNSPRT: 7 [facility] TRANSPORT TRANSPORT MTN ATION SER ATION SER AREA/OTH SYS HOME CARE S5108 [facility] TRAINING 7 AREA AREA HOME AGENCY ON AGENCY ON CARE ESDRAS ESDRAS CLIENT PER 15 MIN HOME CARE S5108 [facility] TRAINING 7 AREA AREA HOME AGENCY ON AGENCY ON CARE ESDRAS ESDRAS CLIENT PER 15 MIN HOME CARE S5108 [facility] [facility] TRAINING 7 AREA AREA HOME AGENCY ON AGENCY ON CARE ESDRAS ESDRAS CLIENT PER 15 MIN HOME CARE S5108 [facility] TRA[facility] 7 AREA AREA HOME AGENCY ON AGENCY ON CARE ESDRAS ESDRAS CLIENT PER 15 MIN BLOOD 92728 [facility] COUNT 7 [facility] 26713 [facility] N VENOUS 7 [facility] B[facility]CT [facility] HOME CARE S5108 [facility] TRAINING 7 AREA AREA HOME AGENCY ON AGENCY ON CARE ESDRAS ESDRAS CLIENT PER 15 MIN HOME CARE S5108 [facility] [facility] TRAINING 7 AREA AREA HOME AGENCY ON AGENCY ON CARE ESDRAS ESDRAS CLIENT PER 15 MIN HOME CARE S5108 [facility] [facility] TRAINING 7 AREA AREA HOME AGENCY ON AGENCY ON CARE ESDRAS ESDRAS CLIENT PER 15 MIN HOME CARE S5108 [facility] [facility] TRAINING 7 AREA AREA HOME AGENCY ON AGENCY ON CARE ESDRAS ESDRAS CLIENT PER 15 MIN HOME CARE S5108 [facility] [facility] TRAINING 7 AREA AREA HOME AGENCY ON AGENCY ON CARE ESDRAS ESDRAS CLIENT PER 15 MIN HOME CARE S5108 [facility] [facility] TRAINING 7 AREA AREA HOME AGENCY ON AGENCY ON CARE ESDRAS ESDRAS CLIENT PER 15 MIN HOME CARE S5108 [facility] [facility] TRAINING 7 AREA AREA HOME AGENCY ON AGENCY ON CARE ESDRAS ESDRAS CLIENT PER 15 MIN HOME CARE S5108 [facility] [facility] TRAINING 7 AREA AREA HOME AGENCY ON AGENCY ON CARE ESDRAS ESDRAS CLIENT PER 15 MIN HOME CARE S5108 [facility] [facility] TRAINING 7 AREA AREA HOME AGENCY ON AGENCY ON CARE ESDRAS ESDRAS CLIENT PER 15 MIN HOME CARE S5108 [facility] [facility] TRAINING 7 AREA AREA HOME AGENCY ON AGENCY ON CARE ESDRAS ESDRAS CLIENT PER 15 MIN HOME CARE S5108 [facility] [facility] TRAINING 7 AREA AREA HOME AGENCY ON AGENCY ON CARE ESDRAS ESDRAS CLIENT PER 15 MIN HOME CARE S5108 [facility] [employer] TRAINING 7 AREA AREA HOME AGENCY ON AGENCY ON CARE ESDRAS ESDRAS CLIENT PER 15 MIN HOME CARE S5108 [facility] TRAINING 7 AREA AREA HOME AGENCY ON AGENCY ON CARE ESDRAS ESDRAS CLIENT PER 15 MIN HOME CARE S5108 [facility] [facility] TRAINING 7 AREA AREA HOME AGENCY ON AGENCY ON CARE ESDRAS ESDRAS CLIENT PER 15 MIN HOME CARE S5108 [facility] [facility] TRAINING 7 AREA AREA HOME AGENCY ON AGENCY ON CARE ESDRAS ESDRAS CLIENT PER 15 MIN HOME CARE S5108 [facility] [facility] TRAINING 7 AREA AREA HOME AGENCY ON AGENCY ON CARE ESDRAS ESDRAS CLIENT PER 15 MIN HOME CARE S5108 [facility] [facility] TRAINING 7 AREA AREA HOME AGENCY ON AGENCY ON CARE ESDRAS ESDARS CLIENT PER 15 MIN HOME CARE S5108 [facility] [facility] TRAINING 7 AREA AREA HOME AGENCY ON AGENCY ON CARE ESDRAS ESDRAS CLIENT PER 15 MIN HOME CARE S5108 [facility] [facility] TRAINING 7 AREA AREA HOME AGENCY ON AGENCY ON CARE ESDRAS ESDRAS CLIENT PER 15 MIN HOME CARE S5108 [facility] [facility] TRAINING 7 AREA AREA HOME AGENCY ON AGENCY ON CARE ESDRAS ESDRAS CLIENT PER 15 MIN HOME CARE S5108 [facility] [employer] TRAINING 7 AREA AREA HOME AGENCY ON AGENCY ON CARE ESDRAS ESDRAS CLIENT PER 15 MIN HOME CARE S5108 [facility] [facility] TRAINING 7 AREA AREA HOME AGENCY ON AGENCY ON CARE ESDRAS ESDRAS CLIENT PER 15 MIN HOME CARE S5108 [facility] [facility] TRAINING 7 AREA AREA HOME AGENCY ON AGENCY ON CARE ESDRAS ESDRAS CLIENT PER 15 MIN HOME CARE S5108 [place] [facility] TRAINING 7 AREA AREA HOME AGENCY ON AGENCY ON CARE ESDRAS ESDRAS CLIENT PER 15 MIN HOME CARE S5108 [facility] [employer] TRAINING 7 AREA AREA HOME AGENCY ON AGENCY ON CARE ESDRAS ESDRAS CLIENT PER 15 MIN [facility] T1999 [facility] ITEMS & 6 AREA AREA SPL AGENCY ON AGENCY ON RETAIL ESDRAS ESDRAS PURCHASE NOC HOME CARE S5108 [facility] [employer] TRAINING 6 AREA AREA HOME AGENCY ON AGENCY ON CARE ESDRAS ESDRAS CLIENT PER 15 MIN HOME CARE S5108 [facility] [employer] TRAINING 6 AREA AREA HOME AGENCY ON AGENCY ON CARE ESDRAS ESDRAS CLIENT PER 15 MIN HOME CARE S5108 [facility] [employer] TRA[employer] 6 AREA AREA HOME AGENCY ON AGENCY ON CARE ESDRAS ESDRAS CLIENT PER 15 MIN IPRATROPI J7644 YOUR YOUR UM 6 PHARMACY PHARMACY [facility] [employer] INHAL NON-CP U DOSE PER MG PHRM Q0513 YOUR YOUR DISPENSIN 6 PHARMACY PHARMACY G F[facility] [employer] INHALATIO N RX; PER 30 DAYS HOME CARE S5108 [facility] TRAINING 6 AREA AREA HOME AGENCY ON AGENCY ON CARE ESDRAS ESDRAS CLIENT PER 15 MIN HOME CARE S5108 [facility] [facility] TRA[employer] 6 AREA AREA HOME AGENCY ON AGENCY ON CARE ESDRAS ESDRAS CLIENT PER 15 MIN HOME CARE S5108 [facility] [employer] TRAINING 6 AREA AREA HOME AGENCY ON AGENCY ON CARE ESDRAS ESDRAS CLIENT PER 15 MIN HOME CARE S5108 [facility] [employer] TRAINING 6 AREA AREA HOME AGENCY ON AGENCY ON CARE ESDRAS ESDRAS CLIENT PER 15 MIN HOME CARE S5108 [facility] [employer] TRAINING 6 AREA AREA HOME AGENCY ON AGENCY ON CARE ESDRAS ESDRAS CLIENT PER 15 MIN HOME CARE S5108 [facility] [employer] TRAINING 6 AREA AREA HOME AGENCY ON AGENCY ON CARE ESDRAS ESDRAS CLIENT PER 15 MIN HOME CARE S5108 [facility] [employer] TRAINING 6 AREA AREA HOME AGENCY ON AGENCY ON CARE ESDRAS ESDRAS CLIENT PER 15 MIN HOME CARE S5108 [facility] [facility] TRAINING 6 AREA AREA HOME AGENCY ON AGENCY ON CARE ESDRAS ESDRAS CLIENT PER 15 MIN HOME CARE S5108 [facility] [employer] TRAINING 6 AREA AREA HOME AGENCY ON AGENCY ON CARE ESDRAS ESDRAS CLIENT PER 15 MIN HOME CARE S5108 [facility] [facility] TRAINING 6 AREA AREA HOME AGENCY ON AGENCY ON CARE ESDRAS ESDRAS CLIENT PER 15 MIN HOME CARE S5108 [facility] [employer] TRAINING 6 AREA AREA HOME AGENCY ON AGENCY ON CARE ESDRAS ESDRAS CLIENT PER 15 MIN HOME CARE S5108 [facility] TRAINING 6 AREA AREA HOME AGENCY ON AGENCY ON CARE ESDRAS ESDRAS CLIENT PER 15 MIN MISC TX T1999 [facility] ITEMS & 6 AREA AREA [facility] AGENC[facility] ON AGENCY ON RETAIL ESDRAS ESDRAS PURCHASE NOC HOME CARE S5108 [facility] [employer] TRAINING 6 AREA AREA HOME AGENCY ON AGENCY ON CARE ESDRAS ESDRAS CLIENT PER 15 MIN HOME CARE S5108 [facility] [employer] TRAINING 6 AREA AREA HOME AGENCY ON AGENCY ON CARE ESDRAS ESDRAS CLIENT PER 15 MIN HOME CARE S5108 [facility] [employer] TRAINING 6 AREA AREA HOME AGENCY ON AGENCY ON CARE ESDRAS ESDRAS CLIENT PER 15 MIN HOME CARE S5108 [facility] [employer] TRAINING 6 AREA AREA HOME AGENCY ON AGENCY ON CARE ESDRAS ESDRAS CLIENT PER 15 MIN HOME CARE S5108 [facility] [employer] TRAINING 6 AREA AREA HOME AGENCY ON AGENCY ON CARE ESDRAS ESDRAS CLIENT PER 15 MIN LIPID [id number] PRANAY PIRES PANEL 6 [facility] INC INC BLOOD 42865 PRANAY PIRES COUNT 6 [facility] COMPLETE INC INC AUTO&[place] [address] PRANAY PIRES FREE 6 [facility] [place] [address] PRANAY PIRES THYROID 6 [facility] STIMULATI INC INC NG HORMONE TSH COMPREHEN 70240 PRANAY PIRES SIVE 6 [facility] METABOLIC INC INC PANEL HOME CARE S5108 [facility] [employer] TRAINING 6 AREA AREA HOME AGENCY ON AGENCY ON CARE ESDRAS ESDRAS CLIENT PER 15 MIN HOME CARE S5108 [facility] [employer] TRAINING 6 AREA AREA HOME AGENCY ON AGENCY ON CARE ESDRAS ESDRAS CLIENT PER 15 MIN HOME CARE S5108 [facility] [facility] TRAINING 6 AREA AREA HOME AGENCY ON AGENCY ON CARE ESDRAS ESDRAS CLIENT PER 15 MIN IPRATROPI J7644 YOUR YOUR UM 6 PHARMACY PHARMACY [facility] INHAL NON-CP U DOSE PER MG PHRM Q0513 YOUR YOUR DISPENSIN 6 PHARMACY PHARMACY [facility] INHALATIO N RX; PER 30 DAYS ECG [id number] [facility] ROUTINE 6 PHYSICIAN MAT ECG S GROUP W/LEAST 12 LDS I&R ONLY ECG [id number] PRANAY PRANAY ROUTINE 6 [facility] ECG INC INC W/LEAST 12 LDS TRCG ONLY W/O I&R HOME CARE S5108 [facility] BL[employer] TRAINING 6 AREA AREA HOME AGENCY ON AGENCY ON CARE ESDRAS ESDRAS CLIENT PER 15 MIN HOME CARE S5108 [facility] [employer] TRAINING 6 AREA AREA HOME AGENCY ON AGENCY ON CARE ESDRAS ESDRAS CLIENT PER 15 MIN HOME CARE S5108 [facility] TRAINING 6 AREA AREA HOME AGENCY ON AGENCY ON CARE ESDRAS ESDRAS CLIENT PER 15 MIN AREO MASK A7015 SAMMY CHRISTIANSON USED W/ 6 HOME HOME DME NEB MEDICAL MEDICAL EQUIPME EQUIPME HOME CARE S5108 [facility] TRAINING 6 AREA AREA HOME AGENCY ON AGENCY ON CARE ESDRAS ESDRAS CLIENT PER 15 MIN HOME CARE S5108 [facility] TRAINING 6 AREA AREA HOME AGENCY ON AGENCY ON CARE ESDRAS ESDRAS CLIENT PER 15 MIN HOME CARE S5108 [facility] TRAINING 6 AREA AREA HOME AGENCY ON AGENCY ON CARE ESDRAS ESDRAS CLIENT PER 15 MIN ECG 57466 [facility] K[facility]IN ROUTINE 6 PHYSICIAN MAT ECG S GROUP W/LEAST 12 LDS I&R ONLY ECG 52012 PRANAY PIRES ROUTINE 6 [facility] ECG INC INC W/LEAST 12 LDS TRCG ONLY W/O I&R HOME CARE S5108 [facility] TRAINING 6 AREA AREA HOME AGENCY ON AGENCY ON CARE ESDRAS ESDRAS CLIENT PER 15 MIN HOME CARE S5108 [facility] [employer] TRAINING 6 AREA AREA HOME AGENCY ON AGENCY ON CARE ESDRAS ESDRAS CLIENT PER 15 MIN HOME CARE S5108 [facility] TRAINING 6 AREA AREA HOME AGENCY ON AGENCY ON CARE ESDRAS ESDRAS CLIENT PER 15 MIN HOME CARE S5108 [facility] [employer] TRAINING 6 AREA AREA HOME AGENCY ON AGENCY ON CARE ESDRAS ESDRAS CLIENT PER 15 MIN HOME CARE S5108 [facility] TRAINING 6 AREA AREA HOME AGENCY ON AGENCY ON CARE ESDRAS ESDRAS CLIENT PER 15 MIN HOME CARE S5108 [facility] [facility] TRAINING 6 AREA AREA HOME AGENCY ON AGENCY ON CARE ESDRAS ESDRAS CLIENT PER 15 MIN HOME CARE S5108 [facility] TRAINING 6 AREA AREA HOME AGENCY ON AGENCY ON CARE ESDRAS ESDRAS CLIENT PER 15 MIN HOME CARE S5108 [facility] [facility] TRAINING 6 AREA AREA HOME AGENCY ON AGENCY ON CARE ESDRAS ESDRAS CLIENT PER 15 MIN HOME CARE S5108 [facility] [facility] TRAINING 6 AREA AREA HOME AGENCY ON AGENCY ON CARE ESDRAS ESDRAS CLIENT PER 15 MIN HOME CARE S5108 [facility] [facility] TRAINING 6 AREA AREA HOME AGENCY ON AGENCY ON CARE ESDRAS ESDRAS CLIENT PER 15 MIN HOME CARE S5108 [facility] TRAINING 6 AREA AREA HOME AGENCY ON AGENCY ON CARE ESDRAS ESDR[place] [address] [place] [address] [place] [facility] ALL HEAD/BRAI 6 MEDICAL N W/O IMAGING CONTRAST ASS MATERIAL GROUND [id number] PORFIRIO MONROY MILEAGE [address] [place] [address] PER AMBULANCE AMBULANCE STATUTE SE SE MILE AMB [id number] [facility] [address] [place] [address] ALS AMBULANCE AMBULANCE EMERGENCY SE SE TRANSPORT LEVEL 1 HOME CARE S5108 [facility] TRAINING 6 AREA AREA HOME AGENCY ON AGENCY ON CARE ESDRAS ESDRAS CLIENT PER 15 MIN HOME CARE S5108 [facility] [facility] TRAINING 6 AREA AREA HOME AGENCY ON AGENCY ON CARE ESDRAS ESDRAS CLIENT PER 15 MIN HOME CARE S5108 [facility] [facility] TRAINING 6 AREA AREA HOME AGENCY ON AGENCY ON CARE ESDRAS ESDRAS CLIENT PER 15 MIN HOME CARE S5108 [facility] [facility] TRAINING 6 AREA AREA HOME AGENCY ON AGENCY ON CARE ESDRAS ESDRAS CLIENT PER 15 MIN MISC TX T1999 [facility] ITEMS & 6 AREA AREA [facility]ENC[facility] ON AGENCY ON RETAIL ESDRAS ESDRAS PURCHASE NOC HOME CARE S5108 [facility] [employer] TRAINING 6 AREA AREA HOME AGENCY ON AGENCY ON CARE ESDRAS ESDRAS CLIENT PER 15 MIN PHRM Q0513 YOUR YOUR DISPENSIN 6 PHARMACY PHARMACY [facility] INHALATIO N RX; PER 30 DAYS IPRATROPI J7644 YOUR YOUR UM 6 PHARMACY PHARMACY [facility] INHAL NON-CP U DOSE PER MG HOME CARE S5108 [facility] TRAINING 6 AREA AREA HOME AGENCY ON AGENCY ON CARE ESDRAS ESDRAS CLIENT PER 15 MIN HOME CARE S5108 [facility] [facility] TRAINING 6 AREA AREA HOME AGENCY ON AGENCY ON CARE ESDRAS ESDRAS CLIENT PER 15 MIN HOME CARE S5108 [facility] [facility] TRAINING 6 AREA AREA HOME AGENCY ON AGENCY ON CARE ESDRAS ESDRAS CLIENT PER 15 MIN HOME CARE S5108 [facility] [facility] TRAINING 6 AREA AREA HOME AGENCY ON AGENCY ON CARE ESDRAS ESDRAS CLIENT PER 15 MIN HOME CARE S5108 [facility] [facility] TRAINING 6 AREA AREA HOME AGENCY ON AGENCY ON CARE ESDRAS ESDRAS CLIENT PER 15 MIN HOME CARE S5108 [facility] [facility] TRAINING 6 AREA AREA HOME AGENCY ON AGENCY ON CARE ESDRAS ESRDAS CLIENT PER 15 MIN HOME CARE S5108 [facility] TRAINING 6 AREA AREA HOME AGENCY ON AGENCY ON CARE ESDRAS ESDRAS CLIENT PER 15 MIN HOME CARE S5108 [facility] TRAINING 6 AREA AREA HOME AGENCY ON AGENCY ON CARE ESDRAS ESDRAS CLIENT PER 15 MIN HOME CARE S5108 [facility] TRAINING 6 AREA AREA HOME AGENCY ON AGENCY ON CARE ESDRAS ESDRAS CLIENT PER 15 MIN HOME CARE S5108 [facility] TRAINING 6 AREA AREA HOME AGENCY ON AGENCY ON CARE ESDRSA ESDRAS CLIENT PER 15 MIN HOME CARE S5108 [facility] TRAINING 6 AREA AREA HOME AGENCY ON AGENCY ON CARE ESDRAS ESDRAS CLIENT PER 15 MIN HOME CARE S5108 [facility] TRAINING 6 AREA AREA HOME AGENCY ON AGENCY ON CARE ESDRAS ESDRAS CLIENT PER 15 MIN HOME CARE S5108 [facility] TRAINING 6 AREA AREA HOME AGENCY ON AGENCY ON CARE ESDRAS ESDRAS CLIENT PER 15 MIN HOME CARE S5108 [facility] TRAINING 6 AREA AREA HOME AGENCY ON AGENCY ON CARE ESDRAS ESDRAS CLIENT PER 15 MIN HOME CARE S5108 [facility] TRAINING 6 AREA AREA HOME AGENCY ON AGENCY ON CARE ESDRAS ESDRAS CLIENT PER 15 MIN HOME CARE S5108 [facility] TRAINING 6 AREA AREA HOME AGENCY ON AGENCY ON CARE ESDRAS ESDRAS CLIENT PER 15 MIN O2 CONC 1 E1390 SAMMY PRATHER 6 HOME HOME 85%/>02 MEDICAL MEDICAL CONC AT EQUIPME EQUIPME PRSC FLW RATE HOME CARE S5108 [facility] TRAINING 6 AREA AREA HOME AGENCY ON AGENCY ON CARE ESDRAS ESDRAS CLIENT PER 15 MIN HOME CARE S5108 [facility] TRAINING 6 AREA AREA HOME AGENCY ON AGENCY ON CARE ESDRAS ESDRAS CLIENT PER 15 MIN MISC TX T1999 [facility] ITEMS & 6 AREA AREA SPL AGENCY ON AGENCY ON RETAIL ESDRAS ESDRAS PURCHASE NOC COMPRE 58929 EILEEN ARELLANO AUDIOMETR 6 MONSTER MONSTER Y THRESHOLD EVAL SP RECOGNIJ TYMPANOME 57330 EILEEN ARELLANO TRY 6 MONSTER MONSTER CONTINUOU E0601 SAMMY CHRISTIANSON S 6 HOME HOME POSITIVE MEDICAL MEDICAL AIRWAY EQUIPME EQUIPME PRESSURE DEVICE HOME CARE S5108 [facility] TRAINING 6 AREA AREA HOME AGENCY ON AGENCY ON CARE ESDRAS ESDRAS CLIENT PER 15 MIN HOME CARE S5108 [facility] TRAINING 6 AREA AREA HOME AGENCY ON AGENCY ON CARE ESDRAS ESDRAS CLIENT PER 15 MIN HOME CARE S5108 [facility] TRAINING 6 AREA AREA HOME AGENCY ON AGENCY ON CARE ESDRAS ESDRAS CLIENT PER 15 MIN HOME CARE S5108 [facility] TRAINING 6 AREA AREA HOME AGENCY ON AGENCY ON CARE ESDRAS ESDRAS CLIENT PER 15 MIN HOME CARE S5108 [facility] TRAINING 6 AREA AREA HOME AGENCY ON AGENCY ON CARE ESDRAS ESDRAS CLIENT PER 15 MIN HOME CARE S5108 [facility] TRAINING 6 AREA AREA HOME AGENCY ON AGENCY ON CARE ESDRAS ESDRAS CLIENT PER 15 MIN HOME CARE S5108 [facility] TRAINING 6 AREA AREA HOME AGENCY ON AGENCY ON CARE ESDRAS ESDRAS CLIENT PER 15 MIN HOME CARE S5108 [facility] TRAINING 6 AREA AREA HOME AGENCY ON AGENCY ON CARE ESDRAS ESDRAS CLIENT PER 15 MIN HOME CARE S5108 [facility] TRAINING 6 AREA AREA HOME AGENCY ON AGENCY ON CARE ESDRAS ESDRAS CLIENT PER 15 MIN HOME CARE S5108 RC [facility] TRAINING 6 AREA AREA HOME AGENCY ON AGENCY ON CARE ESDRAS ESDRAS CLIENT PER 15 MIN ECG 42516 PRANAY PIRES ROUTINE 6 [facility] ECG INC INC W/LEAST 12 LDS TRCG ONLY W/O I&R ECG 65283 [facility] ROUTINE 6 PHYSICIAN MAT ECG S GROUP W/LEAST 12 LDS I&R ONLY HOME CARE S5108 RC TATUM TRAINING 6 AREA AREA [place] AGENCY ON AGENCY ON CARE ESDRAS ESDR[place] CLIENT [place] [address] PRANAY PIRES FREE 6 [facility] THYROXINE INC INC COLLECTIO 80170 PRANAY PIRES N VENOUS 6 [facility] [place] [address] PRANAY PIRES THYROID 6 [facility] STIMULATI INC INC NG HORMONE TSH POLYSOM 22634 PRANAY PRANAY 6/>YRS 6 [facility] SLEEP 4/> INC INC ADDL JESSIKA ATTND O2 CONC 1 E1390 SAMMY CHRISTIANSON DEL PORT 6 HOME HOME 85%/>02 MEDICAL MEDICAL CONC AT EQUIPME EQUIPME PRSC FLW RATE MISC TX T1999 [facility] ITEMS & 6 AREA AREA [facility] AGENCY ON AGENCY ON RETAIL ESDRAS ESDRAS PURCHASE NOC CONTINUOU E0601 SAMMY CHRISTIANSON S 6 HOME HOME POSITIVE MEDICAL MEDICAL AIRWAY EQUIPME EQUIPME PRESSURE DEVICE SCREENING G0202 [place] [address] MEDICAL FREDDY MAMMOGRAP IMAGING HY AUDIE ASS INCL CAD WHEN PERFORMD PHRM Q0513 YOUR YOUR DISPENSIN 6 PHARMACY PHARMACY G [employer] INHALATIO N RX; PER 30 DAYS IPRATROPI J7644 YOUR YOUR UM 6 PHARMACY PHARMACY [facility] [employer] INHAL NON-CP U DOSE PER MG COMPUTER- 32392 [facility] AIDED 6 MEDICAL FREDDY DETECTION IMAGING ASS SCREENING MAMMOGRAP HY ADMN SET A7005 YOUR YOUR W/SM VOL 6 PHARMACY PHARMACY NONFILTR [employer] NEBULIZR NON-DISPB L HOME CARE S5108 [facility] TRA[facility]ING 6 AREA AREA HOME AGENCY ON AGENCY ON CARE ESDRAS ESDRAS CLIENT PER 15 MIN HOME CARE S5108 [facility] TRA[employer] 6 AREA AREA HOME AGENCY ON AGENCY ON CARE ESDRAS ESDRAS CLIENT PER 15 MIN HOME CARE S5108 [facility] [employer] 6 AREA AREA HOME AGENCY ON AGENCY ON CARE ESDRAS ESDRAS CLIENT PER 15 MIN HOME CARE S5108 [facility] 6 AREA AREA HOME AGENCY ON AGENCY ON CARE ESDRAS ESDRAS CLIENT PER 15 MIN HOME CARE S5108 [facility] 6 AREA AREA HOME AGENCY ON AGENCY ON CARE ESDRAS ESDRAS CLIENT PER 15 MIN MISC TX T1999 [facility] IT[facility]S & 6 AREA AREA SPL AGENCY ON AGENCY ON RETAIL ESDRAS ESDRAS PURCHASE NOC HOME CARE S5108 [facility] 6 AREA AREA HOME AGENCY ON AGENCY ON CARE ESDRAS ESDRAS CLIENT PER 15 MIN HOME CARE S5108 [facility] 6 AREA AREA HOME AGENCY ON AGENCY ON CARE ESDRAS ESDRAS CLIENT PER 15 MIN HOME CARE S5108 [facility] 6 AREA AREA HOME AGENCY ON AGENCY ON CARE ESDRAS ESDRAS CLIENT PER 15 MIN AREO MASK [id number] SAMMY CHRISTIANSON USED W/ 6 HOME HOME DME NEB MEDICAL MEDICAL EQUIPME EQUIPME HOME CARE S5108 [facility] 6 AREA AREA HOME AGENCY ON AGENCY ON CARE ESDRAS ESDRAS CLIENT PER 15 MIN O2 CONC 1 [id number] SAMMY PRATHER 6 HOME HOME 85%/>02 MEDICAL MEDICAL CONC AT EQUIPME EQUIPME PRSC FLW RATE HOME CARE S5108 [facility] 6 AREA AREA HOME AGENCY ON AGENCY ON CARE ESDRAS ESDRAS CLIENT PER 15 MIN HOME CARE S5108 [facility] 6 AREA AREA HOME AGENCY ON AGENCY ON CARE ESDRAS ESDRAS CLIENT PER 15 MIN HOME CARE S5108 [facility] 6 AREA AREA HOME AGENCY ON AGENCY ON CARE ESDRAS ESDRAS CLIENT PER 15 MIN CONTINUOU E0601 SAMMY CHRISTIANSON S 6 HOME HOME POSITIVE MEDICAL MEDICAL AIRWAY EQUIPME EQUIPME PRESSURE DEVICE MISC TX T1999 [facility] & 6 AREA AREA SPL AGENCY ON AGENCY ON RETAIL ESDRAS ESDRAS PURCHASE NOC HOME CARE S5108 [facility] 6 AREA AREA HOME AGENCY ON AGENCY ON CARE ESDRAS ESDRAS CLIENT PER 15 MIN BLOOD [id number] [facility] 6 Y [facility] [place] [id number] [facility] 6 Y Y [facility] COLLECTIO 40108 [facility] 6 Y Y [facility] HOME CARE S5108 [facility] 6 AREA AREA HOME AGENCY ON AGENCY ON CARE ESDRAS ESDRAS CLIENT PER 15 MIN HOME CARE S5108 [facility] 6 AREA AREA HOME AGENCY ON AGENCY ON CARE ESDRAS ESDRAS CLIENT PER 15 MIN HOME CARE S5108 [facility] 6 AREA AREA HOME AGENCY ON AGENCY ON CARE ESDRAS ESDRAS CLIENT PER 15 MIN HOME CARE S5108 [facility] [facility] 6 AREA AREA HOME AGENCY ON AGENCY ON CARE ESDRAS ESDRAS CLIENT PER 15 MIN HOME CARE S5108 [facility] 6 AREA AREA HOME AGENCY ON AGENCY ON CARE ESDRAS ESDRAS CLIENT PER 15 MIN HOME CARE S5108 [facility] 6 AREA AREA HOME AGENCY ON AGENCY ON CARE ESDRAS ESDRAS CLIENT PER 15 MIN HOME CARE S5108 [facility] [facility] 6 AREA AREA HOME AGENCY ON AGENCY ON CARE ESDRAS ESDRAS CLIENT PER 15 MIN HOME CARE S5108 [facility] 6 AREA AREA HOME AGENCY ON AGENCY ON CARE ESDRAS ESDRAS CLIENT PER 15 MIN HOME CARE S5108 [facility] 6 AREA AREA HOME AGENCY ON AGENCY ON CARE ESDRAS ESDRAS CLIENT PER 15 MIN HOME CARE S5108 [facility] 6 AREA AREA HOME AGENCY ON AGENCY ON CARE ESDRAS ESDRAS CLIENT PER 15 MIN HOME CARE S5108 [facility] TRA[facility] 6 AREA AREA HOME AGENCY ON AGENCY ON CARE ESDRAS ESDRAS CLIENT PER 15 MIN HOME CARE S5108 [facility] 6 AREA AREA HOME AGENCY ON AGENCY ON CARE ESDRAS ESDRAS CLIENT PER 15 MIN [facility] 72111 PRANAY PRANAY SIVE 6 [facility] METABOLIC INC INC PANEL BLOOD 59357 PRANAY PIRES COUNT 6 [facility] COMPLETE INC INC AUTO&AUTO DIFRNTL WBC HOME CARE S5108 [facility] TRA[facility] 6 AREA AREA HOME AGENCY ON AGENCY ON CARE ESDRAS ESDRAS CLIENT PER 15 MIN HOME CARE S5108 [facility] TRAINING 6 AREA AREA HOME AGENCY ON AGENCY ON CARE ESDRAS ESDRAS CLIENT PER 15 MIN HOME CARE S5108 [facility] TRAINING 6 AREA AREA HOME AGENCY ON AGENCY ON CARE ESDRAS ESDRAS CLIENT PER 15 MIN ECHO 26855 PRANAY PIRES TTHRC R-T 6 [facility] 2D INC INC W/WOM-MOD E COMPL SPEC&[place] [address] PRANAY PIRES MAXILLOFA 6 [facility] CIAL W/O INC INC CONTRAST MATERIAL CT THORAX 02391 PRANAY PIRES W/O 6 [facility] CONTRAST INC INC MATERIAL HOME CARE S5108 [facility] TRAINING 6 AREA AREA HOME AGENCY ON AGENCY ON CARE ESDRAS ESDRAS CLIENT PER 15 MIN HOME CARE S5108 [facility] TRAINING 6 AREA AREA HOME AGENCY ON AGENCY ON CARE ESDRAS ESDRAS CLIENT PER 15 MIN HOME CARE S5108 [facility] TRAINING 6 AREA AREA HOME AGENCY ON AGENCY ON CARE ESDRAS ESDRAS CLIENT PER 15 MIN HOME CARE S5108 [facility] TRAINING 6 AREA AREA HOME AGENCY ON AGENCY ON CARE ESDRAS ESDRAS CLIENT PER 15 MIN O2 CONC 1 E1390 SAMMY CHRISTIANSON DEL PETERSON 6 HOME HOME 85%/>02 MEDICAL MEDICAL CONC AT [facility] PRSC FLW RATE HOME CARE S5108 [facility] TRAINING 6 AREA AREA HOME AGENCY ON AGENCY ON CARE ESDRAS ESDRAS CLIENT PER 15 MIN HOME CARE S5108 [facility] TRAINING 6 AREA AREA HOME AGENCY ON AGENCY ON CARE ESDRAS ESDRAS CLIENT PER 15 MIN DEBRIDEME 20406 FALLIS TESSIE NT NAIL 6 PLACIDO AVTAR ANY METHOD 6/> RADEX 69601 [place] ALL HAND 2 6 MEDICAL VIEWS IMAGING ASS RADEX 57036 [place] ABDOMEN 1 6 MEDICAL ART SERV ANTER[place] [address] [facility] FERRITIN 6 Y Y HOSPITAL [facility] IMMUNOASS 35854 [facility] AY 6 Y Y ANALYTE [facility] QUAL/[place] M[place] [address] [facility] FOLIC 6 Y Y ACID [facility] SERUM COMPREHEN 73643 [facility] SIVE 6 Y Y METABOLIC [facility] PANEL C-REACTIV 52287 [facility] E PROTEIN 6 Y Y HOSPITAL [facility] COLLECTIO 04964 [facility] N VENOUS 6 Y Y BLOOD [facility] VENIPUNCT URE RADEX 39287 PRANAY PIRES HAND 6 [facility] MINIMUM 3 INC INC VIEWS CYANOCOBA 66013 [facility] PASHA 6 Y Y VITAMIN [facility] B-12 BLOOD 79652 [facility] COUNT 6 Y Y COMPLETE [facility] AUTOMATED IRON 23140 [facility] BINDING 6 Y Y CAPACITY [facility] HST G0399 PRANAY PIRES W/TYPE 6 [facility] III INC INC PRTBLE MON UNATTENDE D MIN 4 CH HOME CARE S5108 [facility] TRAINING 6 AREA AREA HOME AGENCY ON AGENCY ON CARE ESDRAS ESDRAS CLIENT PER 15 MIN HOME CARE S5108 [facility] TRAINING 6 AREA AREA HOME AGENCY ON AGENCY ON CARE ESDRAS ESDRAS CLIENT PER 15 MIN CONTINUOU E0601 SAMMY CHRISTIANSON S 6 HOME HOME POSITIVE MEDICAL MEDICAL AIRWAY EQUIPME EQUIPME PRESSURE DEVICE HOME CARE S5108 [facility] TRAINING 6 AREA AREA HOME AGENCY ON AGENCY ON CARE ESDRAS ESDRAS CLIENT PER 15 MIN HOME CARE S5108 [facility] TRAINING 6 AREA AREA HOME AGENCY ON AGENCY ON CARE ESDRAS ESDRAS CLIENT PER 15 MIN HOME CARE S5108 [facility] TRAINING 6 AREA AREA HOME AGENCY ON AGENCY ON CARE ESDRAS ESDRAS CLIENT PER 15 MIN HOME CARE S5108 [facility] TRAINING 6 AREA AREA HOME AGENCY ON AGENCY ON CARE ESDRAS ESDRAS CLIENT PER 15 MIN HOME CARE S5108 [facility] TRAINING 6 AREA AREA HOME AGENCY ON AGENCY ON CARE ESDRAS ESDRAS CLIENT PER 15 MIN HOME CARE S5108 [facility] TRAINING 6 AREA AREA HOME AGENCY ON AGENCY ON CARE ESDRAS ESDRAS CLIENT PER 15 MIN HOME CARE S5108 [facility] TRAINING 6 AREA AREA HOME AGENCY ON AGENCY ON CARE ESDRAS ESDRAS CLIENT PER 15 MIN HOME CARE S5108 [facility] TRAINING 6 AREA AREA HOME AGENCY ON AGENCY ON CARE ESDRAS ESDRAS CLIENT PER 15 MIN HOME CARE S5108 [facility] TRAINING 6 AREA AREA HOME AGENCY ON AGENCY ON CARE ESDRAS ESDRAS CLIENT PER 15 MIN PULMONARY 10273 HUBERT PEARCE STRESS 6 MEDICAL JAM TESTING SERV SIMPLE FOUNDATIO N GAS 05770 PRANAY PIRES DILUT/WAS 6 [facility] HOUT LUNG INC INC VOL W/WO DISTRIB VENT&[place] [address] HUBERT PEARCE DIFFUSING 6 MEDICAL JAM CAPACITY SERV FOUNDATIO N PRESSURIZ 97683 PRANAY PIRES ED/NONPRE 6 [facility] SSURIZED INC INC INHALATIO N TREATMENT BRNCDILAT 55249 HUBERT PEARCE RSPSE 6 MEDICAL JAM SPMTRY SERV PRE&POST- FOUNDATIO BRNCDILAT N ADMN ECG 87338 [facility] ROUTINE 6 PHYSICIAN MAT ECG S GROUP W/LEAST 12 LDS I&R ONLY ECG 50559 PRANAY PIRES ROUTINE 6 [facility] ECG INC INC W/LEAST 12 LDS TRCG ONLY W/O I&R HOME CARE S5108 [facility] TRAINING 6 AREA AREA HOME AGENCY ON AGENCY ON CARE ESDRAS ESDRAS CLIENT PER 15 MIN HOME CARE S5108 [facility] TRAINING 6 AREA AREA HOME AGENCY ON AGENCY ON CARE ESDRAS ESDRAS CLIENT PER 15 MIN HOME CARE S5108 [facility] TRAINING 6 AREA AREA HOME AGENCY ON AGENCY ON CARE ESDRAS ESDRAS CLIENT PER 15 MIN HOME CARE S5108 [facility] TRAINING 6 AREA AREA HOME AGENCY ON AGENCY ON CARE ESDRAS ESDRAS CLIENT PER 15 MIN HOME CARE S5108 [facility] [facility] TRAINING 6 AREA AREA HOME AGENCY ON AGENCY ON CARE ESDRAS ESDRAS CLIENT PER 15 MIN HOME CARE S5108 [facility] TRAINING 6 AREA AREA HOME AGENCY ON AGENCY ON CARE ESDRAS ESDRAS CLIENT PER 15 MIN HOME CARE S5108 [facility] TRAINING 6 AREA AREA HOME AGENCY ON AGENCY ON CARE ESDRAS ESDRAS CLIENT PER 15 MIN O2 CONC 1 E1390 SAMMY PRATHER 6 HOME HOME 85%/>02 MEDICAL MEDICAL CONC AT EQUIPME EQUIPME PRSC FLW RATE HOME CARE S5108 [facility] TRAINING 6 AREA AREA HOME AGENCY ON AGENCY ON CARE ESDRAS ESDRAS CLIENT PER 15 MIN HOME CARE S5108 [facility] TRAINING 6 AREA AREA HOME AGENCY ON AGENCY ON CARE ESDRAS ESDRAS CLIENT PER 15 MIN HOME CARE S5108 [facility] TRAINING 6 AREA AREA HOME AGENCY ON AGENCY ON CARE ESDRAS ESDRAS CLIENT PER 15 MIN HOME CARE S5108 [facility] TRAINING 6 AREA AREA HOME AGENCY ON AGENCY ON CARE ESDRAS ESDRAS CLIENT PER 15 MIN CONTINUOU E0601 SAMMY CHRISTIANSON S 6 HOME HOME POSITIVE MEDICAL MEDICAL AIRWAY EQUIPME EQUIPME PRESSURE DEVICE HOME CARE S5108 [facility] TRAINING 6 AREA AREA HOME AGENCY ON AGENCY ON CARE ESDRAS ESDRAS CLIENT PER 15 MIN HOME CARE S5108 [facility] TRAINING 6 AREA AREA HOME AGENCY ON AGENCY ON CARE ESDRAS ESDRAS CLIENT PER 15 MIN HOME CARE S5108 [facility] TRAINING 6 AREA AREA HOME AGENCY ON AGENCY ON CARE ESDRAS ESDRAS CLIENT PER 15 MIN HOME CARE S5108 [facility] TRAINING 6 AREA AREA HOME AGENCY ON AGENCY ON CARE ESDRAS ESDRAS CLIENT PER 15 MIN ECG 35189 [facility] ROUTINE 6 PHYSICIAN MAT ECG S GROUP W/LEAST 12 LDS I&R ONLY ECG 82520 PRANAY PIRES ROUTINE 6 [facility] ECG INC INC W/LEAST 12 LDS TRCG ONLY W/O I&R HOME CARE S5108 [facility] BL[facility] TRAINING 6 AREA AREA HOME AGENCY ON AGENCY ON CARE ESDRAS ESDRAS CLIENT PER 15 MIN HOME CARE S5108 [facility] TRAINING 6 AREA AREA HOME AGENCY ON AGENCY ON CARE ESDRAS ESDRAS CLIENT PER 15 MIN HOME CARE S5108 [facility] TRAINING 6 AREA AREA HOME AGENCY ON AGENCY ON CARE ESDRAS ESDRAS CLIENT PER 15 MIN ADMN SET A7003 SAMMY CHRISTIANSON SM VOL 6 HOME HOME NONFILTR MEDICAL MEDICAL PNEUMAT EQUIPME EQUIPME NEBULIZR DISPBL FILTER A7013 SAMMY CHRISTIANSON DISPOSABL 6 HOME HOME MEDICAL MEDICAL W/AREOSOL EQUIPME EQUIPME COMPRESS/ US GENERATOR AREO MASK A7015 SAMMY CHRISTIANSON USED W/ 6 HOME HOME DME NEB MEDICAL MEDICAL EQUIPME EQUIPME HOME CARE S5108 [facility] TRAINING 6 AREA AREA HOME AGENCY ON AGENCY ON CARE ESDRAS ESDRAS CLIENT PER 15 MIN HOME CARE S5108 [facility] TRAINING 6 AREA AREA HOME AGENCY ON AGENCY ON CARE ESDRAS ESDRAS CLIENT PER 15 MIN 39718 [place] [facility] ALL RETROPERI 6 MEDICAL TONEAL IMAGING REAL TIME ASS W/IMAGE LIMITED DUP-SCAN 47608 [place] [facility] ARTL CURRY 6 MEDICAL ABDL/PEL/ IMAGING SCROT&/RP ASS R ORGN LMT HOME CARE S5108 [facility] TRAINING 6 AREA AREA HOME AGENCY ON AGENCY ON CARE ESDRAS ESDRAS CLIENT PER 15 MIN HOME CARE S5108 [facility] [facility] TRAINING 6 AREA AREA HOME AGENCY ON AGENCY ON CARE ESDRAS ESDRAS CLIENT PER 15 MIN HOME CARE S5108 [facility] TRAINING 6 AREA AREA HOME AGENCY ON AGENCY ON CARE ESDRAS ESDRAS CLIENT PER 15 MIN NONINVASI 44640 PRANAY PIRES VE 6 [facility] EAR/PULSE INC INC [facility] G0378 PRANAY PIRES OBSERVATI 6 [facility] ON INC INC SERVICE PER [facility] G0378 PRANAY PIRES OBSERVATI 6 [facility]OS[facility] ON INC INC SERVICE PER HOUR [facility] [address] [facility] 6 PHYSICIAN MAT CARE/DAY S GROUP 25 MINUTES [facility] 75027 [facility] OBSERVATI 6 PHYSICIAN [place] ON S GROUP CARE/DAY 15 [place] [address] PRANAY PIRES TROPONIN 6 [facility]OS[facility] QUANTITAT INC INC MIGUE COLLECTIO 21317 PRANAY PIRES N VENOUS 6 [facility]OS[facility] BLOOD INC INC VENIPUNCT URE CREATINE 72115 PRANAY PIRES KINASE 6 [facility]OS[facility] TOTAL INC INC CREATINE 47179 PRANAY PIRES KINASE MB 6 [facility] FRACTION INC INC ONLY CREATINE 05295 PRANAY PIRES KINASE MB 6 [facility] FRACTION INC INC ONLY ECG 07323 PRANAY GONSALES JR ROUTINE 6 [facility] W/LEAST P 12 LDS I&R ONLY CREATINE 37697 PRANAY PIRES KINASE 6 [facility]OS[facility] TOTAL INC INC ECG 23574 PRANAY PIRES ROUTINE 6 [facility]OS[facility] ECG INC INC W/LEAST 12 LDS TRCG ONLY W/O I&R RADIOLOGI 85163 [place] [facility] ALL C 6 MEDICAL EXAMINATI IMAGING ON CHEST ASS SINGLE VIEW FRONTAL COMPREHEN 29185 PRANAY PIRES SIVE 6 [facility] [address] PRANAY PIRES TROPONIN 6 [facility]OS[facility] QUANTITAT INC INC MIGUE INITIAL 49185 [facility] 6 PHYSICIAN MAT CARE/DAY S GROUP 70 MINUTES BLOOD 24334 PRANAY PIRES COUNT 6 [facility] COMPLETE INC INC AUTO&AUTO DIFRNTL WBC NONINVASI 45873 PRANAY PIRES VE 6 [facility] EAR/PULSE INC INC OXIMETRY SINGLE DETER INITIAL 33755 [facility] OBS[facility] 6 PHYSICIAN [place] ON S GROUP CARE/DAY 50 MINUTES [facility]OSPITAL G0378 PRANAY PIRES OBSERVATI 6 [facility] ON INC INC SERVICE PER HOUR HOME CARE S5108 [facility] TRAINING 6 AREA AREA HOME AGENCY ON AGENCY ON CARE ESDRAS ESDRAS CLIENT PER 15 MIN HOME CARE S5108 [facility] [facility] TRAINING 6 AREA AREA HOME AGENCY ON AGENCY ON CARE ESDRAS ESDRAS CLIENT PER 15 MIN HOME CARE S5108 [facility] TRAINING 6 AREA AREA HOME AGENCY ON AGENCY ON CARE ESDRAS ESDRAS CLIENT PER 15 MIN HOME CARE S5108 [facility] TRAINING 6 AREA AREA HOME AGENCY ON AGENCY ON CARE ESDRAS ESDRAS CLIENT PER 15 MIN HOME CARE S5108 [facility] TRAINING 6 AREA AREA HOME AGENCY ON AGENCY ON CARE ESRDAS ESDRAS CLIENT PER 15 MIN O2 CONC 1 E1390 SAMMY CHRISTIANSON DEL PORT 6 HOME HOME 85%/>02 MEDICAL MEDICAL CONC AT EQUIPME EQUIPME PRSC FLW RATE HOME CARE S5108 [facility]ASS TRAINING 6 AREA AREA HOME AGENCY ON AGENCY ON CARE ESDRAS ESDRAS CLIENT PER 15 MIN HOME CARE S5108 [facility]ASS TRAINING 6 AREA AREA HOME AGENCY ON AGENCY ON CARE ESDRAS ESDRAS CLIENT PER 15 MIN HOME CARE S5108 [facility]UE[facility]ASS TRAINING 6 AREA AREA HOME AGENCY ON AGENCY ON CARE ESDRAS ESDRAS CLIENT PER 15 MIN CONTINUOU E0601 SAMMY Rose 6 HOME HOME POSITIVE MEDICAL MEDICAL AIRWAY EQUIPME EQUIPME PRESSURE DEVICE DESTRUCTI 72609 FALLIS TESSIE ON BENIGN 6 PLACIDO AVTAR LESIONS 15/ HOME CARE S5108 [facility]ASS TRAINING 6 AREA AREA HOME AGENCY ON AGENCY ON CARE ESDRAS ESDRAS CLIENT PER 15 MIN HOME CARE S5108 [facility] [facility] TRAINING 6 AREA AREA HOME AGENCY ON AGENCY ON CARE ESDRAS ESDRAS CLIENT PER 15 MIN HOME CARE S5108 [facility] TRAINING 6 AREA AREA HOME AGENCY ON AGENCY ON CARE ESDRAS ESDRAS CLIENT PER 15 MIN HOME CARE S5108 [facility]UEGRASS TRAINING 6 AREA AREA HOME AGENCY ON AGENCY ON CARE ESDRAS ESDRAS CLIENT PER 15 MIN HOME CARE S5108 [facility] BLUEGRASS TRAINING 6 AREA AREA HOME AGENCY ON AGENCY ON CARE ESDRAS ESDRAS CLIENT PER 15 MIN CONTINUOU E0601 SAMMY CHRISTIANSON S 6 HOME HOME POSITIVE MEDICAL MEDICAL AIRWAY EQUIPME EQUIPME PRESSURE DEVICE O2 CONC 1 E1390 SAMMY CHRISTIANSON DEL PORT 6 HOME HOME 85%/>02 MEDICAL MEDICAL CONC AT EQUIPME EQUIPME PRSC FLW RATE CONTINUOU E0601 SAMMY CHRISTIANSON S 6 HOME HOME POSITIVE MEDICAL MEDICAL AIRWAY EQUIPME EQUIPME PRESSURE DEVICE BLOOD 45710 PRANAY BILLY COUNT 6 [facility] COMPLETE INC AUTO&AUTO DIFRNTL WBC LIPID 62675 PRANAY PIRES PANEL 6 [facility] INC INC COMPREHEN 70030 PRANAY PIRES SIVE 6 [facility] METABOLIC INC INC PANEL US SOFT 46390 PRANAY BILLY TISSUE 6 [facility] HEAD & INC NECK REAL TIME IMGE DOCM FINAL RPT G[address]/MRI 6 MEDICAL FREDDY CHEST/NCK IMAGING /U/S NO ASS THR NOD<1.0 [place] [address] PRANAY PIRES PARATHORM [address] [facility]OSP ONE INC INC CALCIUM 14630 PRANAY PIRES IONIZED [address] [facility] [place] [address] PRANAY PIRES THYROXINE 6 [facility] [place] [address] PRANAY PIRES THYROID [address] [facility] HOSP STIMULATI INC INC NG HORMONE TSH COLLECTIO 47357 PRANAY PIRES N VENOUS 6 [facility]OSP BLOOD INC INC VENIPUNCT URE O2 CONC 1 E1390 SAMMY HANSON PORT 6 HOME HOME 85%/>02 MEDICAL MEDICAL CONC AT EQUIPME EQUIPME PRS FLW RATE CONTINUOU E0601 SAMMY CHRISTIANSON S 6 HOME HOME POSITIVE MEDICAL MEDICAL AIRWAY EQUIPME EQUIPME PRESSURE DEVICE DUP-SCAN 05297 PRANAY PIRES XTR VEINS [address] [facility] HOSP INC INC UNILATERA L/LIMITED STUDY O2 CONC 1 E1390 SAMMY HANSON PORT 6 HOME HOME 85%/>02 MEDICAL MEDICAL CONC AT EQUIPME EQUIPME PRS FLW RATE PREHTN/HT G8952 VIOLET HSIEH N BP DOC 6 PHYSICIAN U SERA INDCD F/U S, PLLC NOT DOC RSN NOT GIVN THERAPEUT 41368 PRANAY PIRES IC 6 [facility] PROPHYLAC INC INC TIC/DX INJECTION SUBQ/IM NASL A7034 SAMMY CHRISTIANSON INTRFCE 6 HOME HOME POS ARWAY MEDICAL MEDICAL PRSS EQUIPME EQUIPME DEVC W/WO HEAD STRAP HEADGEAR A7035 SAMMY CHRISTIANSON USED 6 HOME HOME W/POSITIV MEDICAL MEDICAL E AIRWAY EQUIPME EQUIPME PRESSURE DEVICE TUBING A7037 SAMMY CHRISTIANSON USED WITH 6 HOME HOME POSITIVE MEDICAL MEDICAL AIRWAY EQUIPME EQUIPME PRESSURE DEVICE CONTINUOU E0601 SAMMY CHRISTIANSON S 6 HOME HOME POSITIVE MEDICAL MEDICAL AIRWAY EQUIPME EQUIPME PRESSURE DEVICE FILTER A7038 SAMMY CHRISTIANSON DISPBL 6 HOME HOME USED MEDICAL MEDICAL W/POS EQUIPME EQUIPME ARWAY PRESSURE DEVICE FILTER A7039 SAMMY CHRISTIANSON NON 6 HOME HOME DISPBL MEDICAL MEDICAL USED EQUIPME EQUIPME W/POS ARWAY PRESS DEVICE HUMDIFIR E0562 SAMMY CHRISTIANSON HEATED 6 HOME HOME USED MEDICAL MEDICAL W/POS EQUIPME EQUIPME ARWAY PRESSURE DEVICE COMPREHEN 48165 ALEXANDER MUNOZ SIVE 6 [facility] PANEL [facility]LECTIO 31110 [facility] N VENOUS 6 [facility] [place] [address] [facility] INFUSION [address] [place] [address] HYDRATION [facility] EACH ADDITIONA L HOUR URNLS DIP 59322 [facility] [address] [place] [address] STICK/TAB [facility] LET REAGENT AUTO MICROSCOP Y BLOOD 38612 ALEXANDER MUNOZ COUNT 6 [facility] AUTO&AUTO DIFRNTL WBC THER 63265 ALEXANDER MUNOZ PROPH/DX 6 [facility] NJX IV [facility]PITAL PUSH SINGLE/1S T SBST/DRUG O2 CONC 1 E1390 SAMMYANIL CHRISTIANSON DEL PORT 5 HOME HOME 85%/>02 MEDICAL MEDICAL CONC AT EQUIPME EQUIPME PRSC FLW RATE POLYSOM 89238 ANNAMARIE ALMAGUER ALMAGUER ANNAMARIE 6/>YRS 5 MD SLEEP 4/> CONSULTIN ADDL G SRV JESSIKA ATTND POLYSOM 61830 ALEXANDER MUNOZ 6/>YRS 5 [facility] SLEEP 4/> HOSPITAL HOSPITAL ADDL JESSIKA ATTND PARATHYRO 78276 PRANAY PIRES ID PLANAR [address] [facility] HOSP IMAGING INC INC TECHNETIU A9500 PRANAY PIRES M TC-99M 5 [facility] HOSP SESTAMIBI INC INC DX PER STUDY DOSE CALCIUM 67944 PRANAY PIRES TOTAL [address] [facility]OSP INC INC CALCIUM 27905 PRANAY PIRES IONIZED [address] [facility]OSP INC INC COLLECTIO 32671 PRANAY PIRES N VENOUS 5 [facility] BLOOD INC INC VENIPUNCT URE O2 CONC 1 E1390 SAMMY SAMMY DEL PORT 5 HOME HOME 85%/>02 MEDICAL MEDICAL CONC AT EQUIPME EQUIPME PRSC FLW RATE O2 CONC 1 E1390 SAMMY SAMMY DEL [place] 5 HOME HOME 85%/>02 MEDICAL MEDICAL CONC AT EQUIPME EQUIPME PRSC FLW RATE US SOFT 14363 PRANAY PIRES TISSUE 5 [facility] HOSP HEAD & INC INC NECK REAL TIME IMGE DOCM CATH PLMT 85431 [facility] & 5 [facility] [employer] MEDICAL W/NJX & G ANGIO IMG S&I COLLECTIO 96083 ALEXANDER MUNOZ N VENOUS 5 [facility] [place] [address] ALEXANDER MUNOZ HEAD/BRAI [address] [place] [address] W/O [facility] CONTRAST MATERIAL COMPREHEN 90958 ALEXANDER MUNOZ SIVE [address] [place] [address] [place] [address] ALEXANDER MUNOZ THYROID 5 [facility] NG HORMONE TSH INFUSION J7030 ALEXANDER MUNOZ NORMAL 5 [facility] SOLUTION 1000 CC ECG 93462 [facility] ROUTINE 5 [facility]IS THO ECG EMERGENCY W/LEAST PHYS 12 LDS I&R ONLY ECG 66163 ALEXANDER MUNOZ ROUTINE 5 [facility] W/LEAST 12 LDS TRCG ONLY W/O I&[place] [address] ALEXANDER MUNOZ TROPONIN 5 [facility] MIGUE BLOOD 71828 ALEXANDER MUNOZ COUNT 5 [facility] AUTO&AUTO DIFRNTL WBC NONCOVERE A9270 ALEXANDER NGON D ITEM OR 5 [facility] O2 CONC 1 E1390 SAMMY CHRISTIANSON DEL [place] 5 HOME HOME 85%/>02 MEDICAL MEDICAL CONC AT EQUIPME EQUIPME PRSC FLW RATE COMMODE E0163 SAMMY CHRISTIANSON CHAIR 5 HOME HOME MOBILE OR MEDICAL MEDICAL EQUIPME EQUIPME STATIONAR Y W/FIXED ARMS O2 CONC 1 E1390 SAMMY CHRISTIANSON DEL PORT 5 HOME HOME 85%/>02 MEDICAL MEDICAL CONC AT EQUIPME EQUIPME PRSC FLW RATE O2 CONC 1 E1390 SAMMY HANSON [place] 5 HOME HOME 85%/>02 MEDICAL MEDICAL CONC AT EQUIPME EQUIPME PRSC FLW RATE O2 CONC 1 E1390 SAMMY HANSON [place] 5 HOME HOME 85%/>02 MEDICAL MEDICAL CONC AT EQUIPME EQUIPME PRSC FLW RATE COMPREHEN 51595 ALEXANDER MUNOZ SIVE 5 [facility] PANEL INJECTION J2405 ALEXANDER MUNOZ [address] [place] [address] [address] [place] [address] [facility] [place] [facility] NAS HEAD/BRAI 5 RADIOLOGY N W/O CONTRAST MATERIAL COLLECTIO 76926 [facility]LEX[facility]ER [facility] N VENOUS 5 [facility] VENIPUNCT URE NONCOVERE A9270 ALEXANDER MUNOZ D ITEM OR 5 [facility] BLOOD 91828 ALEXANDER NGON COUNT 5 [facility]OSPITAL AUTO&AUTO DIFRNTL WBC THER 77367 ALEXANDER MUNOZ PROPH/DX 5 [facility] IV [facility]OSPITAL PUSH SINGLE/1S T SBST/DRUG RADEX 77043 ALEXANDER MUNOZ HAND [address] HOSPITAL VIEWS O2 CONC 1 E1390 SAMMY CHRISTIANSON DEL [place] 5 HOME HOME 85%/>02 MEDICAL MEDICAL CONC AT EQUIPME EQUIPME PRSC FLW RATE COMPREHEN 74011 ALEXANDER MOCKE 5 [facility] PANEL RADIOLOGI 47054 ALEXANDER NGON C 5 [facility] ON KNEE 1/2 VIEWS COLLECTIO 16387 ALEXANDER MUNOZ N VENOUS 5 [facility] VENIPUNCT URE BLOOD 64557 ALEXANDER NGON COUNT 5 [facility] AUTO&AUTO DIFRNTL WBC O2 CONC 1 E1390 SAMMY SAMMY DEL PORT 5 HOME HOME 85%/>02 MED[facility] AT EQUIPME EQUIPME PRSC FLW RATE O2 CONC 1 E1390 SAMMY SAMMY DEL PORT 5 HOME HOME 85%/>02 [facility] AT EQUIPME EQUIPME PRS FLW RATE ECG 00035 [facility] ROUTINE 5 [facility] ECG EMERGENCY W/LEAST PHYS 12 LDS I&R ONLY CREATINE 21713 ALEXANDER MUNOZ KINASE MB 5 [facility] ONLY ECG 53922 ALEXANDER MUNOZ ROUTINE 5 [facility] W/LEAST 12 LDS TRCG ONLY W/O I&R CREATINE 43232 [place] ALEXANDER KINASE 5 [facility] COMPREHEN 86104 [place] ALEXANDER SIVE 5 [facility] PANEL CUL BACT 58767 [place] ALEXANDER XCPT 5 [facility] BLOOD/STO OL AEROBIC ISOL CUL BACT 95490 [place] ALEXANDER AEROBIC 5 [facility] METHS DEFINITIV E EA ISOL COLLECTIO 23470 ALEXANDER BERENICEON N VENOUS 5 [facility] VENIPUNCT URE RADIOLOGI 24577 ALEXANDER OLIVAJOCELYNON C 5 [facility] ON CHEST SINGLE VIEW FRONTAL BLOOD 54328 [place] OLIVAJOCELYNON COUNT 5 [facility] AUTO&AUTO DIFRNTL WBC CULTURE 04519 ALEXANDER MUNOZ BACTERIAL 5 [facility] AEROBIC W/ID ISOLATES SUSCEPTIB 50966 ALEXANDER MUNOZ LTY STDY 5 [facility] IAL MICRO/AGA R DILUTJ SMR PRIM 47165 ALEXANDER MUNOZ SRC 5 [facility] SA STAIN BCT FUNGI/[place] [address] ALEXANDER MUNOZ TROPONIN 5 [place] [address] ALEXANDER MUNOZ INFUSION 5 [facility] INITIAL 31 MIN-1 HOUR XTRNL ECG 47534 ANNAMARIE ALMAGUER ALMAGUER ANNAMARIE 5 MD CONTINUOU CONSULTIN S RHYTHM G SRV W/I&R UP TO 48 HRS CV STRS 06387 ANNAMARIE ALMAGUER ALMAGUER ANNAMARIE TST 5 MD XERS&/OR CONSULTIN RX CONT G SRV ECG I&R ONLY CV STRS 63721 ALEXANDER MUNOZ TST 5 [facility] XERS&/OR HOSPITAL HOSPITAL RX CONT ECG TRCG ONLY XTRNL ECG 25347 ANNAMARIE ALMAGUER ALMAGUER ANNAMARIE & 48 HR 5 MD RECORDING CONSULTIN G SRV NONINVASI 55997 ALEXANDER MUNOZ VE 5 [facility] EAR/[facility] OXIMETRY OVERNIGHT MONITOR MYOCARDIA 55754 ANNAMARIE ALMAGUER ALMAGUER ANNAMARIE L SPECT 5 MULTIPLE CONSULTIN STUDIES G SRV TECHNETIU A9500 ALEXANDER MUNOZ M TC-99M 5 [facility] DX PER STUDY DOSE NONINVASI 79829 ANNAMARIE ALMAGUER ALMAGUER ANNAMARIE VE 5 MD EAR/PULSE CONSULTIN OXIMETRY G SRV OVERNIGHT MONITOR DUPLEX 43137 ANNAMARIE ALMAGUER ALMAGUER ANNAMARIE SCAN 5 MD EXTRACRAN CONSULTIN IAL ART G SRV COMPL BI STUDY ECHO 36380 ANNAMARIE ALMAGUER ALMAGUER ANNAMARIE TTHRC R-T 5 2D CONSULTIN W/WOM-MOD G SRV E COMPL SPEC&COLR D SODIUM 74494 LAB ER[facility] LAB ERIC SERUM 5 BR[facility] BRISSA PLASMA OR [employer] WHOLE BLOOD PROTEIN 03327 LAB ERIC LAB ERIC XCPT 5 [facility] REFRACTOM [employer] ETRY SERUM PLASMA/WH L BLD SUSCEPTIB 52640 LAB ERIC LAB ERIC LTY STDY 5 [facility] ANTIMICRB [employer] IAL MICRO/AGA R DILUTJ GLUCOSE 35395 LAB ERIC LAB ERIC QUANTITAT 5 RBISSA BRISSA MIGUE BLOOD [employer] XCPT REAGENT STRIP CULTURE 63354 LAB ERIC LAB ERIC BCT 5 BRISSA BRISSA ISOL&PRSM [employer] [place] [address] LAB ER[facility] LAB ERIC UREA 5 BR[facility] BRIS[facility] NITROGEN [employer] QUANTITAT MIGUE CUL BACT 68039 LAB ERIC LAB ERIC AEROBIC 5 BR[facility]SA BRISSA ADDL [employer] METHS DEFINITIV E EA ISOL PROTEIN 04913 LAB ERIC LAB ERIC TOTAL 5 BRISSA BRISSA XCPT [employer] REFRACTOM ETRY URINE TRANSFERA 21076 LAB ERIC LAB ERIC SE 5 BRISSA [facility] ASPARTATE [facility]INGS HOLDINGS AMINO AST SGOT CREATININ 08761 LAB ERIC LAB ERIC E OTHER 5 [facility] [place] [address] LAB ERIC LAB ERIC PHOSPHATA 5 [facility]SA BRISSA SE [facility]INGS HOLDINGS ALKALINE BLOOD 86630 LAB ERIC LAB ERIC COUNT 5 BR[facility]SA [facility]SA RETICULOC HOLDINGS HOLDINGS YTE AUTOMATED POTASSIUM 87833 LAB ERIC LAB ERIC SERUM 5 BRISSA BRISSA PLASMA/WH [facility] HOLDINGS OLE BLOOD CT LUMBAR 07638 [facility] SPINE 5 [facility] W/O MELLY MELLY CONTRAST MATERIAL BILIRUBIN 91426 LAB ERIC LAB ERIC TOTAL 5 BRISSA BR[facility] HOLDINGS CALCIUM 57567 LAB ERIC LAB ERIC TOTAL 5 BR[facility]SA BRISSA [facility] HOLDINGS POTASSIUM 70301 LAB ERIC LAB ERIC SERUM 5 BRISSA BRISSA PLASMA/WH [facility] HOLDINGS OLE BLOOD CREATININ 22641 LAB ERIC LAB ERIC E BLOOD 5 [facility]SA BRISSA [facility]INGS HOLDINGS 25 46204 LAB ERIC LAB ERIC HYDROXY 5 BRISSA BRISSA INCLUDES HOLDINGS HOLDINGS FRACTIONS IF PERFORMED CHLORIDE 08252 LAB ERIC LAB ERIC BLD 5 [place] [address] LAB ERIC LAB ERIC PHOSPHATA 5 BRISSA BRISSA SE [facility] HOLDINGS ALKALINE TRANSFERA 20778 LAB ERIC LAB ERIC SE 5 BR[facility]SA BRISSA ASPARTATE [place] [address] LAB ERIC LAB ERIC UREA 5 BRISSA BRISSA NITROGEN [facility]INGS HOLDINGS QUANTITAT MIGUE COLLECTIO 43704 [facility] HORNER FLAKITA N VENOUS 5 CLINIC BLOOD VENIPUNCT URE GLUCOSE 87094 LAB ERIC LAB ERIC QUANTITAT 5 BRISSA BRISSA MIGUE BLOOD [facility]INGS XCPT REAGENT STRIP ALBUMIN 57203 LAB ERIC LAB ERIC SERUM 5 BRISSA BRISSA PLASMA/WH [facility]INGS OLE BLOOD PROTEIN 12424 LAB ERIC LAB ERIC XCPT 5 BRISSA BRISSA REFRACTOM [facility]INGS HOLDINGS ETRY SERUM PLASMA/WH L BLD SODIUM 99842 LAB ERIC LAB ERIC SERUM 5 [facility] PLASMA OR HOLDINGS HOLDINGS WHOLE BLOOD RADEX 46870 [facility] RIBS 5 [facility] [address] [place] [address] [facility] [place] CERVICAL 5 RADIOLOGY RAY SPINE W/[place] [address] [facility] [place] HEAD/BRAI 5 RADIOLOGY RAY N W/O CONTRAST MATERIAL RADEX 51936 [facility] [place] HAND 5 RADIOLOGY RHO MINIMUM 3 VIEWS RADEX 34293 [facility] [place] RIBS UNI 5 RADIOLOGY RHO W/POSTERO ANT CH MINIMUM 3 VIEWS RADIOLOGI 39327 [facility] C [address] [place] [address] ON CHEST SINGLE VIEW FRONTAL STRAPPING 82887 [facility] 5 CHRIS HAND/FING EMERGENCY ER PHYS RADIOLOGI 83519 [facility] [place] RACHEL C 5 RADIOLOGY RHO EXAMINATI ON PELVIS 1/[address] [place] [address] [facility] [place] MAXILLOFA 5 RADIOLOGY RAY CIAL W/O CONTRAST MATERIAL Encounters Encounter Start End Date Code Location Performer Type Date OFFICE 24614 [facility] ARELLANO OUTPATIEN 7 7 PHYSICIAN T VISIT S GROUP 15 MINUTES OFFICE 67059 [facility] ARELLANO OUTPATIEN 7 7 PHYSICIAN T [facility]ISIT S GROUP 15 MINUTES [facility] PR[facility]Y - OTHER 7 7 [facility] OFF[facility] 79716 [facility] GARCIA OUTPATIEN 7 7 PHYSICIAN T VISIT S GROUP 15 MINUTES [facility] - 7 7 [facility] PR[facility] - 7 7 [facility] T OFFICE 74313 [facility] KALIN OUTPATIEN 7 7 PHYSICIAN T VISIT S GROUP 25 MINUTES [facility] - 7 7 [facility] OFFICE 64373 [facility] FRYMAN OUTPATIEN 7 7 PHYSICIAN T VISIT GROUP 15 MINUTES HOSPITAL PRANAY - OTHER 6 6 [facility] INC OFFICE 10424 [facility] KALIN OUTPATIEN 6 6 PHYSICIAN MAT T VISIT S GROUP 25 MINUTES [facility] PRANAY - 6 6 [facility] OUTPATIEN INC T OFFICE 08353 [facility] KALIN OUTPATIEN 6 6 PHYSICIAN MAT T VISIT S GROUP 25 MINUTES HOSPITAL PR[facility]Y - 6 6 [facility]PATIEN INC T OFFICE 07891 [facility] ARELLANO OUTPATIEN 6 6 PHYSICIAN MONSTER T VISIT S GROUP 10 MINUTES HOSPITAL PRANAY - 6 6 [facility] OUTPATIEN INC [facility] PRANAY - 6 6 [facility] OUTPATIEN INC T OFFICE 78360 [facility] ARELLANO OUTPATIEN 6 6 PHYSICIAN MONSTER T VISIT S GROUP 10 MINUTES HOSPITAL PRANAY - 6 6 [facility] OUTPATIEN INC T OFFICE 75948 [facility] PAVEZ MAR OUTPATIEN 6 6 PHYSICIAN T NEW 30 S GROUP MINUTES [facility] 40735 [facility] ARELLANO OUTPATIEN 6 6 PHYSICIAN MONSTER T VISIT S GROUP 10 MINUTES HOSPITAL PRANAY - OTHER 6 6 [facility] PR[facility] - 6 6 [facility] T OFF[facility] 78345 [facility] TESSIE OUTPATIEN 6 6 PLACIDO AVTAR T VISIT 15 MINUTES OFFICE 39078 [place] OUTPATIEN 6 6 MEDICAL JAM T VISIT SERV 25 FOUNDATIO MINUTES HOSPITAL UNIVERSIT - 6 6 Y [facility] T OFFICE 93996 [facility] ARELLANO OUTPATIEN 6 6 PHYSICIAN MONSTER T VISIT S GROUP 10 MINUTES OFFICE 09953 [facility] ISMA TOD OUTPATIEN 6 6 PHYSICIAN T VISIT S GROUP 15 MINUTES HOSPITAL PRANAY - 6 6 [facility] 88998 [facility] KALIN OUTPATIEN 6 6 PHYSICIAN MAT T VISIT S GROUP 25 MINUTES OFFICE 82631 [place] PEARCE OUTPATIEN 6 6 MEDICAL JAM T NEW 45 SERV MINUTES [place] [facility] DEPARTMENT OFFICE 91881 [facility] KALIN OUTPATIEN 6 6 PHYSICIAN MAT T VISIT S GROUP 25 MINUTES [facility]OSP[facility] 6 6 [facility] T EMERGENCY 39486 PRANAY 6 6 [facility] T VISIT HIGH/URGE NT SEVERITY EMERGENCY 28611 [facility] DEPT 6 6 PHYSICIAN U SERA VISIT S, PLLC HIGH SEVERITY& THREAT FUN [facility]OSP[facility] PRAANY - 6 6 [facility] T OFFICE 69421 [facility] TESSIE OUTPATIEN 6 6 PLACIDO AVTAR T NEW 30 MINUTES OFFICE 44739 [facility] GARCIA OUTPATIEN 6 6 PHYSICIAN EMERY T VISIT S GROUP 15 MINUTES OFFICE 00023 [facility] PHYSICIAN EMERY T NEW 45 S GROUP MINUTES HOSPITAL PRANAY - 6 6 [facility] PR[facility] 6 6 [facility] 36525 [facility] 6 6 PHYSICIAN U SERA [facility] T VISIT MODERATE SEVERITY [facility]OSPITAL PRANAY - 6 6 [facility] 63230 PRANAY 6 6 [facility] [place] VISIT LOW/MODER SEVERITY EMERGENCY 75951 [facility]ER[facility] 6 6 [facility] VISIT HIGH/URGE NT SEVERITY [facility] ALEXANDER - 6 6 [facility] EM[facility] 09422 [facility] DEPT 6 6 CHRIS SERA VISIT EMERGENCY HIGH PHYS SEVERITY& THREAT [facility] ALEXANDER - 5 5 [facility] PRANAY [facility] 5 5 [facility] PRANAY [facility] 5 5 [facility] OFFICE 87262 [facility] 5 5 [facility] T NEW 45 MEDICAL MINUTES G EMERGENCY 73777 [facility] DEPT 5 5 CHRIS THO VISIT EMERGENCY HIGH PHYS SEVERITY& THREAT [facility] BERENICEON - 5 5 [facility] T EMERGENCY 94178 [facility] 5 5 [facility] T VISIT HIGH/URGE NT SEVERITY EMERGENCY 79066 [facility] 5 5 [facility] T VISIT [facility]IGH/URGE NT SEVERITY [facility] A[facility]AND[facility] - 5 5 [facility] [place] [facility] 5 5 [facility] 5 5 [facility] [place] [address] 5 [facility] EM[facility]GENC[facility] [address]13 [place] [address] 5 [facility] VISIT HIGH/URGE NT SEVERITY EMERGENCY 53279 [facility] VISIT EMERGENCY HIGH PHYS SEVERITY& THREAT [facility] [place] [address] 5 [facility] [place] [address] 5 [facility] OFFICE 93148 P[place]MIN[place]NER [place] [address] 5 [facility] T VISIT 25 MINUTES EMERGENCY [address]49 [place] [address] 5 [facility] VIS[facility] MODERATE SEVERITY [facility]OSP[facility] [place] [address] 5 [facility] 69050 [facility] DEPT 5 5 CHRIS VISIT EMERGENCY HIGH PHYS SEVERITY& THREAT FUNC
--- OUTSIDE RECORDS SUMMARY | 2016-10-24 16:27 | External Medical Summary Rpt ---
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 Name Role Phone [facility] Unavailable Unavailable ON ESDRAS, [facility] ON E[facility]AS [facility] Unavailable Unavailable ON ESDRAS, [facility] ON ESDRAS HORNER ALL, HORNER ALL Unavailable Unavailable HORNER FLAKITA, HORNER FLAKITA Unavailable Unavailable [facility] Unavailable Unavailable HOSPITAL, [facility] TESSIE AVTAR, TESSIE Unavailable Unavailable AVTAR [facility], Unavailable Unavailable [facility] JOSE GARCIA Unavailable Unavailable GARCIA EMERY, GARCIA Unavailable Unavailable EMERY [facility], Unavailable Unavailable [facility] ALMAGUER ANNAMARIE, ALMAGUER ANNAMARIE Unavailable Unavailable CHACHO FREDDY, Unavailable Unavailable CHACHO FREDDY [facility] Unavailable Unavailable [facility], [facility] II THO, MC II Unavailable Unavailable THO FALLIS PLACIDO, FALLIS Unavailable Unavailable [facility] Unavailable Unavailable TRANSPORTATION [facility], [facility] FRYMAN, FRYMAN Unavailable Unavailable YOLANDA LEIGHTON, YOLANDA Unavailable Unavailable LEIGHTON RACHEL RHO, RACHEL Unavailable Unavailable RHO [facility] Un[facility] Un[facility], [facility], Unavailable Unavailable [facility], Unavailable Unavailable [facility] MARLOW CAROLA, MARLOW CAROLA Unavailable Unavailable [facility] Unavailable Unavailable MEDICAL G, [facility] Unavailable [...] ART PEARCE JAM, Unavailable Unavailable PEARCE JAM [facility] Unavailable Unavailable AMBULANCE SE, [facility] Unavailable Unavailable AMBULANCE SE, [facility], N[facility]UC[facility] Unavailable Unavailable [facility] ANNAMARIE ALMAGUER MD Unavailable Unavailable CONSULTING SRV, ANNAMARIE ALMAGUER MD CONSULTING SRV [facility], Unavailable Unavailable PLLC, [facility] PAVEZ MAR, PAVEZ MAR Unavailable Unavailable ISMA TOD, ISMA TOD Unavailable Unavailable SCALF NAS, SCALF NAS Unavailable Unavailable NAE LEIGHTON, Unavailable Unavailable NAE LEIGHTON SCIFRES, SCIFRES Unavailable Unavailable KOHLI SERA, KOHLI Unavailable Unavailable SERA KALIN, KALIN Unavailable Unavailable KALIN MAT, Unavailable Unavailable KALIN MAT [facility] Unavailable Unavailable E[facility], [facility] Unavailable Unavailable [facility], [facility] SOTINGEANU SERA, Unavailable Unavailable SOTINGEANU SERA [facility] Unavailable Unavailable EMERGENCY PHYS, [facility] Unavailable Unavailable MELLY, [facility] MELLY BILLY, BILLY Unavailable Unavailable BILLY RAY, BILLY Unavailable Unavailable RAY [facility] Unavailable Unavailable HOSPITALS, [facility], Unavailable Unavailable [facility], Unavailable [facility]available [facility], Unavailable [facility]available [facility] Purpose Continuity of Care Document - 06-01-2014 through 2016 Problems Code Diagnosis DOS Provider Status J449 CHRONIC 10-03-2016 [facility] DISEASE UNS I10 ESSENTIAL 09-27-2016 [facility] PRIMARY AREA AGENCY HYPERTENSIO ON ESDRAS N E039 HYPOTHYROID 09-22-2016 [facility] ISM PHYSICIANS UNSPECIFIED GROUP [id number] OTHER 09-10-2016 [facility] N3281 OVERACTIVE 09-03-2016 [facility] BLADDER PHYSICIANS GROUP N3941 URGE 09-03-2016 [facility] INCONTINENC PHYSICIANS E GROUP H2513 AGE-RELATED 08-18-2016 [facility] BILATERAL R922 INCONCLUSIV 07-31-2016 [facility] R928 OTH ABNORM 07-31-2016 [place] [facility] ASS E FIND ON DX IMAG BREAST E785 HYPERLIPIDE 07-09-2016 [facility] RADHA PHYSICIANS UNSPECIFIED GROUP R0789 OTHER CHEST 07-09-2016 [facility] PAIN PHYSICIANS GROUP R69 ILLNESS 07-09-2016 [facility] UNSPECIFIED TRANSPORTAT ION SER K219 GASTRO-ESOP 06-30-2016 [facility] DISEASE HOSPITALS WITHOUT ESOPHAGITIS 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 [facility] GOITER PHYSICIAN UNSPECIFIED GROUP E069 THYROIDITIS 06-18-2016 [facility] PHYSICIAN UNSPECIFIED GROUP E8352 HYPERCALCEM 06-18-2016 [facility] IA PHYSICIAN GROUP I2510 ASHD [place] 06-18-2016 [facility] 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 ANGINA PECTORIS K469 UNS 06-18-2016 [facility] ABDOMINAL PHYSICIAN HERNIA W/O GROUP OBSTRUCTION OR GANGRENE N3946 MIXED 06-18-2016 [facility] INCONTINENC PHYSICIANS E GROUP E119 TYPE 2 04-22-2016 [facility]AB[facility]ES [facility] MELLITUS INC WITHOUT COMPLICATIO NS E669 OBESITY 04-22-2016 [facility] UNSPECIFIED PHYSICIANS GROUP R0602 SHORTNESS 04-22-2016 [facility] OF BREATH [facility] INC [id number] UNSPECIFIED 04-18-2016 [facility] UNCOMPLICAT MEDICAL ED EQUIPME R0600 DYSPNEA 04-15-2016 [facility] UNSPECIFIED PHYSICIANS GROUP R110 NAUSEA 03-31-2016 [facility] AMBULANCE SE R42 DIZZINESS 03-31-2016 [facility] AMBULANCE SE M150 PRIMARY 03-03-2016 [facility] GENERALIZED HOME MEDICAL OSTEOARTHRI EQUIPME TIS M533 SACROCOCCYG 03-03-2016 [facility] EAL HOME DISORDERS MEDICAL NEC EQUIPME M549 DORSALGIA 03-03-2016 [facility] UNSPECIFIED HOME MEDICAL EQUIPME [id number] DIFFUSE 02-28-2016 [facility] OTITIS EXTERNA BILATERAL H6903 PATULOUS 02-28-2016 [facility] EUSTACHIAN TUBE BILATERAL H905 UNSPECIFIED 02-28-2016 [facility] PHYSICIANS SENSORINEUR GROUP AL HEARING LOSS G4733 OBSTRUCTIVE 02-27-2016 [facility] SLEEP HOME APNEA ADULT MEDICAL PEDIATRIC EQUIPME R079 CHEST PAIN 02-14-2016 [facility] UNSPECIFIED [facility] INC G4730 SLEEP APNEA 02-12-2016 [facility] UNSPECIFIED INC H6590 UNSPECIFIED 02-01-2016 [facility] PHYSICIANS NONSUPPURAT GROUP MIGUE OTITIS MEDIA UNS EAR R040 EPISTAXIS 02-01-2016 [facility] PHYSICIANS GROUP Z1231 ENCOUNTER 01-25-2016 [facility] MAMMO MALIG IMAGING ASS NEOPLASM BREAST G8929 OTHER 01-07-2016 [facility] CHRONIC PHYSICIANS PAIN GROUP D649 ANEMIA 12-27-2015 [facility] J342 DEVIATED 12-13-2015 [facility] NASAL PHYSICIANS SEPTUM GROUP I351 NONRHEUMATI 12-07-2015 [facility] SERV VALVE [facility] INSUFFICIEN CY I358 OTHER 12-07-2015 [facility] NONRHEUMATI MEM [facility]OS[facility] C AORTIC INC VALVE DISORDERS J432 CENTRILOBUL 12-07-2015 [facility] EMPHYSEMA IMAGING ASS J984 OTHER 12-07-2015 [facility] DISORDERS [facility] OF LUNG INC Z862 PERSONAL HX 12-07-2015 [facility] DZ [facility] BLOOD&BLOOD INC FORM ORGN IMMUNE MECH B351 TINEA 11-29-2015 [facility] PLAC[facility] UNGUIUM I890 LYMPHEDEMA 11-29-2015 [facility] PLAC[facility] NOT ELSEWHERE CLASSIFIED M2570 OSTEOPHYTE 11-29-2015 [place] PLAC[facility] UNSPECIFIED JOINT S40524 PAIN IN 11-29-2015 [place] [facility] RIGHT TOES A03123 PAIN IN 11-29-2015 [place] PLAC[facility] LEFT TOES L53065 PRIMARY 11-28-2015 [facility] OSTEOARTH[facility] MEDICAL TIS RIGHT IMAGING ASS HAND I31987 PAIN IN 11-28-2015 [facility] RIGHT HAND MEDICAL IMAGING ASS M7989 OTHER 11-28-2015 [facility] SPECIFIED MEDICAL SOFT TISSUE IMAGING ASS DISORDERS R0902 HYPOXEMIA 11-28-2015 [facility] R109 UNSPECIFIED 11-28-2015 [facility] ABDOMINAL SERV PAIN FOUNDATION [id number] UNS FX RT 11-28-2015 [facility] WRIST HAND SERV INITIAL ENC FOUNDATION CLOS FRACTURE Z8673 PERSONAL HX 11-28-2015 [facility] TIA & MEM [facility] CEREB INC INFARCT NO RESID DEFICIT J04949 PERSONAL 11-28-2015 [facility] HISTORY OF MEM [facility]OS[facility] OTHER INC SPECIFIED CONDITIONS H6092 UNSPECIFIED 11-22-2015 [facility] OTITIS PHYSICIANS EXTERNA GROUP LEFT EAR J029 ACUTE 11-22-2015 [facility] PHARYNGITIS PHYSICIANS GROUP UNSPECIFIED L989 DISORDER 11-19-2015 [facility] THE SKIN & PHYSICIANS SUBCUTANEOU GROUP S TISSUE UNS I209 ANGINA 11-13-2015 [facility] PECTORIS PHYSICIANS UNSPECIFIED GROUP T94209 PERSONAL 10-24-2015 [facility] HISTORY OF SERV NICOTINE FOUNDATION DEPENDENCE W90748 ASHD [place] 10-08-2015 [facility] COR ARTREY PHYSICIANS W/UNS GROUP ANGINA PECTORIS B078 OTHER VIRAL 09-27-2015 [place] PLAC[facility] WARTS M40273 PAIN IN 09-27-2015 [place] PL[facility] LEFT FOOT N952 POSTMENOPAU 08-29-2015 [facility] TIFFANY PHYSICIANS ATROPHIC GROUP VAGINITIS R350 FREQUENCY 08-29-2015 [facility] OF PHYSICIANS MICTURITION GROUP R351 NOCTURIA 08-29-2015 [facility] PHYSICIANS GROUP E042 NONTOXIC 07-18-2015 [facility] MULTINODULA MEDICAL R GOITER IMAGING ASS [id number] PAIN IN 06-04-2015 [facility] RIGHT LEG [facility] INC B93052 PAIN IN 06-04-2015 [facility] RIGHT LOWER MEDICAL LEG IMAGING ASS F89233 ACUTE EMBO 06-03-2015 [facility] THROMB UNS [facility] DEEP VEINS INC RT LOWER EXTREM L309 DERMATITIS 06-03-2015 [facility] UNSPECIFIED [facility] HOS[facility] INC L57958 PAIN IN 06-03-2015 [facility] RIGHT KNEE PHYSICIANS, [facility] E780 PURE 05-28-2015 [facility] H8110 BENIGN 05-28-2015 [facility] UNSPECIFIED EAR H8112 BENIGN 05-28-2015 [facility] PAROXYSMAL N EMERGENCY VERTIGO PHYS LEFT EAR Z7982 [facility] 05-28-2015 [place] [facility] N19461 OTHER LONG 05-28-2015 [facility] DRUG THERAPY G4710 HYPERSOMNIA 05-01-2015 ANNAMARIE ALMAGUER MD UNSPECIFIED CONSULTING SRV G478 OTHER SLEEP 04-28-2015 [facility] M5383 OTHER SPEC 04-28-2015 [place] [facility] CERVICOTH[facility] ACIC REGION R0683 SNORING 04-28-2015 [facility] E041 NONTOXIC 04-04-2015 [facility] THYROID INC NODULE 2449 UNSPECIFIED 02-16-2015 [facility] HYPOTHYROID IMAGING ASS ISM 29421 DYSPHAGIA 02-16-2015 [place] UNSPECIFIED MEDICAL IMAGING ASS 4139 OTHER AND 02-14-2015 [facility] UNSPECIFIED HEALTH ANGINA MEDICAL G PECTORIS 83273 CHEST PAIN 02-14-2015 [facility] UNSPECIFIED HEALTH MEDICAL G 2720 PURE 02-04-2015 [facility] 4019 UNSPECIFIED 02-04-2015 [place] ESSENTIAL [facility] HYPERTEN[facility]O HOSPITAL N 496 CHRONIC 02-04-2015 [place] AIRWAY [facility] OBSTRUCTION HOSPITAL NEC 62556 ESOPHAGEAL 02-04-2015 [place] REFLUX [facility] 7804 DIZZINESS 02-04-2015 [facility] N EMERGENCY GIDDINESS PHYS 01668 NAUSEA WITH 02-04-2015 [place] VOMITING [facility] V5869 LONG-TERM 02-04-2015 [place] (CURRENT) COMM[facility]ITY USE OF HOSPITAL OTHER MEDICATIONS 82156 GEN 02-01-2015 [facility] OSTEOARTHRO HOME SIS MEDICAL INVOLVING EQUIPME MULTIPLE SITES 7245 UNSPECIFIED 02-01-2015 [facility] BACKACHE HOME MEDICAL EQUIPME 30500 OTHER 02-01-2015 [facility] DISORDER OF HOME COCCYX MEDICAL EQUIPME 02863 UNSPECIFIED 01-05-2015 [facility] URINARY HOME INCONTINENC MEDICAL E EQUIPME 55438 VOMITING 10-25-2014 [place] ALONE [facility] HOSPITAL V5866 LONG-TERM 10-25-2014 [place] USE OF [facility] 7295 PAIN IN 10-20-2014 [facility] [place] SOFT [facility] TISSUES OF LIMB 9594 INJURY 10-20-2014 [place] OTHER AND COMMUNITY UNSPECIFIED HOSPITAL HAND EXCEPT FINGER 4659 ACUTE URIS 09-28-2014 [place] OF COMMUNITY UNSPECIFIED HOSPITAL SITE 64154 PAIN IN 09-28-2014 [facility] [place] JOINT, RADIOLOGY LOWER LEG 73038 DEHYDRATION 07-31-2014 [facility] N EMERGENCY PHYS 2768 HYPOPOTASSE 07-31-2014 [facility] RADHA N EMERGENCY PHYS 4660 ACUTE 07-31-2014 [facility] BRONCHITIS N EMERGENCY PHYS 91489 OTHER CHEST 07-31-2014 [facility] PAIN N EMERGENCY PHYS V143 PERSONAL 07-31-2014 [place] HISTORY [facility] ANTI-INFECT MIGUE AGT V146 PERSONAL 07-31-2014 [place] HISTORY OF COMMUNITY ALLERGY TO HOSPITAL ANALGESIC AGENT 7851 PALPITATION 07-25-2014 ANNAMARIE Rose MD CONSULTING SRV 4011 ESSENTIAL 07-20-2014 [place] HYPERTENSIO [facility] 7197 DIFFICULTY 07-20-2014 [place] IN WALKING [facility] 42872 SHORTNESS 07-20-2014 ANNAMARIE ALMAGUER [place] BRE[place] SRV 43081 PRECORDIAL 07-20-2014 ANNAMARIE ROSINA [place]IN [place]ING SRV 86904 OCCLUSION&S 07-04-2014 ANNAMARIE DIOP MD CAROTID ART CONSULTING W/O SRV MENTION INFARCT 2809 UNSPECIFIED 06-23-2014 [facility] IRON [facility] DEFICIENCY HOLDINGS ANEMIA 5939 UNSPECIFIED 06-23-2014 [facility] DISORDER [facility] OF KIDNEY HOLDINGS AND URETER 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 7294 UNSPECIFIED 06-20-2014 [facility] [place] FASCIITIS RADIOLOGY 94413 SCOLIOSIS , 06-20-2014 ST [facility] IDIOPATHIC [facility] MELLY E8889 UNSPECIFIED 06-02-2014 [facility] FALL [facility] HOLDINGS 8470 NECK SPRAIN 06-01-2014 [facility] STRAIN N EMERGENCY PHYS 920 CONTUSION 06-01-2014 [facility] FACE N EMERGENCY SCALP AND PHYS NECK EXCEPT EYE 9219 UNSPECIFIED 06-01-2014 [facility] CONTUSION N EMERGENCY OF EYE PHYS 32107 CONTUSION 06-01-2014 [facility] OF HAND N EMERGENCY PHYS 9248 CONTUSION 06-01-2014 [place] [facility] SITES [facility] 58148 INJURY OF 06-01-2014 [facility] [place] FACE AND RADIOLOGY NECK OTHER AND UNSPECIFIED 15433 OTHER 06-01-2014 [facility] [place] INJURY OF RADIOLOGY CHEST WALL 9596 INJURY 06-01-2014 [facility] [place] OTHER AND RADIOLOGY UNSPECIFIED HIP AND THIGH V1582 PERS HX 06-01-2014 [place] TOBACCO USE [facility] 786.50 E03.9 HYPOTHYROID ISM, UNSPECIFIED E83.52 [...] YOUR YOUR UM 7 PHARMACY PHARMACY [facility] INHAL NON-CP U DOSE PER MG PHRM Q0513 YOUR YOUR DISPENSIN 7 PHARMACY PHARMACY G FEE [facility] INHALATIO N RX; PER 30 DAYS HOME CARE S5108 [facility] TRAINING 7 [facility] HOME AGENCY ON AGENCY ON CARE ESDRAS ESDRAS CLIENT PER 15 MIN HOME CARE S5108 [facility] TRAINING 7 [facility] AGENCY ON AGENCY ON CARE ESDRAS ESDRAS [...] W/AREOSOL EQUIPME EQUIPME COMPRESS/ US GENERATOR COLLECTIO 95237 [facility] PIRES N VENOUS 7 [facility] [place] [address] [facility] PIRES FREE 7 [facility] [place] [address] [facility] PIRES THYROID 7 [facility] STIMULATI INC INC NG HORMONE TSH [...] YOUR YOUR USED W/ 7 PHARMACY PHARMACY [facility] HOME CARE S5108 [facility] TRAINING [...] HOME AGENCY ON AGENCY ON CARE ESDRAS EDSRAS CLIENT PER 15 MIN HOME CARE S5108 [...] CARE ESDRAS ESDRAS CLIENT PER 15 MIN [facility] T1999 [facility] ITEMS & 7 AREA [...] ESDRAS ESDRAS CLIENT PER 15 MIN OPH 20816 [facility] VISION XM&EVAL CENTER COMPRHNSV ESTAB PT [...] YOUR DISPENSIN 7 PHARMACY PHARMACY G FEE [facility] INHALATIO N RX; PER 30 DAYS ADMN SET A7005 YOUR YOUR W/SM VOL 7 PHARMACY PHARMACY NONFILTR [facility] NEBULIZR NON-DISPB L IPRATROPI J7644 YOUR YOUR UM 7 PHARMACY PHARMACY [facility] INHAL NON-CP U DOSE PER MG [...] [facility] ITEMS & 7 AREA [facility]A [facility] AGENCY ON AGENCY ON RETAIL ESDRAS [...] ATION SER ATION SER AREA/OTH SYS ECG 52471 [facility] PIRES ROUTINE 7 MEM HOSP MEM [...] ESDRAS ESDRAS CLIENT PER 15 MIN BLOOD 12598 [facility] COUNT 7 [facility]ALTHCAR HEALTHCAR COMPLETE E E [facility]IT[facility] COLLECTIO 21706 [facility] N VENOUS 7 HEALTHCAR HEALTHCAR BLOOD E E VENIPUNCT HOSPITALS [facility] HOME CARE S5108 [facility] BLUE[facility]ASS [...] CARE ESDRAS ESDRAS CLIENT PER 15 MIN [facility] T1999 [facility] ITEMS & 6 AREA [...] YOUR YOUR UM 6 PHARMACY PHARMACY BR[facility] [employer] INHAL NON-CP U DOSE PER MG PHRM Q0513 YOUR YOUR DISPENSIN 6 PHARMACY PHARMACY G FEE [facility] INHALATIO N RX; PER 30 DAYS [...] BLUEGRASS BLUEGRASS ITEMS & 6 AREA AREA [facility] HOSPITAL AGENCY ON AGENCY ON RETAIL ESDRAS [...] ESDRAS ESDRAS CLIENT PER 15 MIN LIPID 42102 [facility] PIRES PANEL 6 MEM HOSP MEM HOSP INC INC BLOOD 95982 [facility] PIRES COUNT 6 MEM HOSP MEM [facility]OSP COMPLETE INC INC AUTO&[place] [address] PR[facility] PIRES FREE 6 MEM HOSP [place] [address] PR[facility] PIRES THYROID 6 MEM HOSP MEM HOSP STIMULATI INC INC NG HORMONE TSH COMPREHEN 91722 [facility] PIRES SIVE 6 MEM HOSP MEM [...] YOUR YOUR UM 6 PHARMACY PHARMACY [facility] INHAL NON-CP U DOSE PER MG PHRM Q0513 YOUR YOUR DISPENSIN 6 PHARMACY PHARMACY [facility] INHALATIO N RX; PER 30 DAYS ECG 84713 [facility] KALIN ROUTINE 6 PHYSICIAN MAT ECG S GROUP W/LEAST 12 LDS I&R ONLY ECG 69150 [facility] PRANAY ROUTINE 6 MEM HOSP MEM [...] ESDRAS ESDRAS CLIENT PER 15 MIN ECG 26286 [facility] KALIN ROUTINE 6 PHYSICIAN MAT ECG S GROUP W/LEAST 12 LDS I&R ONLY ECG 59971 [facility] PIRES ROUTINE 6 MEM HOSP MEM [...] ESDRAS ESDRAS CLIENT [place] [address] [place] [address] [place] HORNER ALL HEAD/BRAI 6 MEDICAL N W/O IMAGING CONTRAST ASS MATERIAL GROUND A0425 PORFIRIO MONROY MILEAGE [address] [place] [address] PER AMBULANCE AMBULANCE STATUTE SE SE MILE AMB A0427 [facility] [address] [place] [address] ALS AMBULANCE AMBULANCE EMERGENCY SE SE TRANSPORT [...] [facility]GRASS BL[facility]ASS ITEMS & 6 AREA AREA LDS HOSPITAL AGENCY ON AGENCY ON RETAIL ESDRAS [...] ON RETAIL ESDRAS ESDRAS PURCHASE NOC COMPRE 12028 EILEEN ARELLANO AUDIOMETR 6 MONSTER MONSTER Y THRESHOLD EVAL SP RECOGNIJ TYMPANOME 55199 EILEEN ARELLANO TRY 6 MONSTER MONSTER CONTINUOU [...] ESDRAS ESDRAS CLIENT PER 15 MIN ECG 03346 [facility] PIRES ROUTINE 6 MEM HOS[facility]OS[facility] ECG INC INC W/LEAST 12 LDS TRCG ONLY W/O I&R ECG 66728 [facility] ROUTINE 6 PHYSICIAN MAT ECG S GROUP W/LEAST 12 LDS I&R ONLY HOME CARE S5108 [facility] TATUM TRAINING 6 AREA AREA TALLMADGE AGENCY ON AGENCY ON CARE ESDRAS ESDRAS CLIENT [place] [address] [place] [address] [facility] PIRES FREE 6 MEM HOS[facility]OS[facility] THYROXINE INC INC COLLECTIO 07475 [facility] PIRES N VENOUS 6 [facility] [place] [address] [facility] PIRES THYROID 6 MEM HOS[facility]OS[facility] STIMULATI INC INC NG HORMONE TSH POLYSOM 45661 [facility] PRANAY 6/>YRS 6 MEM HOSP [facility] HOSP SLEEP 4/> INC INC ADDL JESSIKA ATTND O2 CONC 1 E1390 [facility] CHRISTIANSON DEL PORT 6 HOME HOME 85%/>02 MEDICAL MEDICAL CONC AT EQUIPME EQUIPME PRSC FLW RATE MISC TX T1999 RC TATUM ITEMS & 6 AREA AREA LDS HOSPITAL AGENCY ON AGENCY ON RETAIL ESDRAS ESDRAS PURCHASE NOC CONTINUOU E0601 [facility] CHRISTIANSON S 6 HOME HOME POSITIVE MEDICAL MEDICAL AIRWAY EQUIPME EQUIPME PRESSURE DEVICE SCREENING G0202 [place] [address] MEDICAL FREDDY MAMMOGRAP IMAGING HY AUDIE ASS INCL CAD WHEN PERFORMD PHRM Q0513 YOUR YOUR DISPENSIN 6 PHARMACY PHARMACY G FEE [facility] INHALATIO N RX; PER 30 DAYS IPRATROPI J7644 YOUR YOUR UM 6 PHARMACY PHARMACY [facility] INHAL NON-CP U DOSE PER MG COMPUTER- 08420 [facility] AIDED 6 MEDICAL FREDDY DETECTION IMAGING ASS SCREENING MAMMOGRAP HY ADMN SET A7005 YOUR YOUR W/SM VOL 6 PHARMACY PHARMACY NONFILTR [facility] NEBULIZR NON-DISPB L HOME CARE S5108 [...] ESDRAS ESDRAS CLIENT PER 15 MIN BLOOD 07290 [facility] 6 Y [place] [address] [facility] [address] [facility] COLLECTIO 83622 [facility] 6 Y Y [facility] VENIPUNCT URE HOME CARE S5108 [facility] BLUE[facility]ASS [...] CARE ESDRAS ESDRAS CLIENT PER 15 MIN [facility] 25927 [facility] PRANAY SIVE 6 MEM HOSP [facility]OS[facility] METABOLIC INC INC PANEL BLOOD 21767 [facility] PIRES COUNT 6 MEM HOSP MEM [...] ESDRAS ESDRAS CLIENT PER 15 MIN ECHO 37861 [facility] PIRES TTHRC R-T 6 MEM HOS[facility] 2D INC INC W/WOM-MOD E COMPL SPEC&[place] [address] [facility] PIRES MAXILLOFA 6 MEM HOSP [facility] CIAL W/O INC INC CONTRAST MATERIAL CT THORAX 80007 [facility] PIRES W/O 6 MEM HOSP MEM [...] HOME HOME 85%/>02 MEDICAL MEDICAL [facility] PRSC FLW RATE HOME CARE S5108 [facility] TRAINING 6 AREA AREA HOME AGENCY ON AGENCY ON CARE ESDRAS ESDRAS CLIENT PER 15 MIN HOME CARE S5108 [facility] TRAINING 6 AREA AREA HOME AGENCY ON AGENCY ON CARE ESDRAS ESDRAS CLIENT PER 15 MIN DEBRIDEME 45350 [place] TESSIE NT NAIL 6 PLACIDO AVTAR ANY METHOD 6/> RADEX 37952 [place] HORNER ALL HAND 2 6 MEDICAL VIEWS IMAGING ASS RADEX 55699 [place] ABDOMEN 1 6 MEDICAL ART SERV [place]TER[place] [address] [facility] FERRITIN 6 Y Y [facility] IMMUNOASS 83383 [facility] AY [address] [facility] QUAL/[place] [address] [facility] FOLIC [address] [facility] SERUM COMPREHEN 27487 [facility] SIVE [address] [facility] PANEL C-REACTIV 15691 [facility] E PROTEIN 6 Y Y [facility] COLLECTIO 48845 [facility] N VENOUS [address] [facility] VENIPUNCT URE RADEX 48280 [facility] PIRES HAND 6 [facility] MINIMUM 3 INC INC VIEWS CYANOCOBA 41066 [facility] PASHA [address] [facility] B-12 BLOOD 34598 [facility] COUNT [address] [facility] AUTOMATED IRON 64312 [facility] BINDING [address] [facility] HST [id number] PR[facility] PIRES W/TYPE 6 MEM [...] ESDRAS ESDRAS CLIENT PER 15 MIN PULMONARY 85395 [facility] STRESS 6 MEDICAL JAM TESTING SERV SIMPLE FOUNDATIO N GAS 75470 [facility] P[facility]ES DILUT/WAS 6 [facility] HOUT LUNG INC INC VOL W/WO DISTRIB VENT&[place] [address] [facility] DIFFUSING 6 MEDICAL JAM CAPACITY SERV FOUNDATIO N PRESSURIZ 44340 [facility] P[facility]ES ED/NONPRE 6 [facility] SSURIZED INC INC INHALATIO N TREATMENT BRNCDILAT 16486 [facility] PE[facility] RSPSE 6 MEDICAL JAM SPMTRY SERV PRE&POST- FOUNDATIO BRNCDILAT N ADMN ECG 29240 [facility] ROUTINE 6 PHYSICIAN MAT ECG S GROUP W/LEAST 12 LDS I&R ONLY ECG 06014 [facility] PIRES ROUTINE 6 [facility] MEM [...] ESDRAS ESDRAS CLIENT PER 15 MIN ECG 60176 [facility] KALIN ROUTINE 6 PHYSICIAN MAT ECG S GROUP W/LEAST 12 LDS I&R ONLY ECG 48753 [facility] PIRES ROUTINE 6 [facility] MEM [...] CARE ESDRAS ESDRAS CLIENT PER 15 MIN 40255 [place] [facility] RETROPERI 6 MEDICAL TONEAL IMAGING REAL TIME ASS W/IMAGE LIMITED DUP-SCAN 15928 [place] [facility] ARTL CURRY 6 MEDICAL ABDL/PEL/ [...] ESDRAS ESDRAS CLIENT PER 15 MIN NONINVASI 49568 [facility] VE 6 [facility] EAR/PULSE INC INC OX[facility]RY [facility] G0378 [facility] PIRES OBSERVATI 6 [facility] ON INC INC [facility] G0378 [facility] P[facility] OBSERVATI 6 [facility] ON INC INC SERVICE PER HOUR [facility] 81477 [facility] 6 PHYSICIAN MAT CARE/DAY S GROUP 25 MINUTES [facility] 43178 [facility] YOLANDA OBSERVATI 6 PHYSICIAN [place] ON S GROUP CARE/DAY 15 [place] [address] [facility] P[facility]ES TROPONIN 6 [facility] QUANTITAT INC INC MIGUE COLLECTIO 61893 [facility] N VENOUS 6 [facility] BLOOD INC INC VENIPUNCT URE CREATINE 26384 [facility] P[facility] KINASE 6 [facility] TOTAL INC INC CREATINE 07722 PRANAY PIRES KINASE MB 6 [facility] FRACTION INC INC ONLY CREATINE 21549 PRANAY PIRES KINASE MB 6 [facility] FRACTION INC INC ONLY ECG 23411 PRANAY GONSALES JR ROUTINE 6 [facility] W/LEAST P 12 LDS I&R ONLY CREATINE 25714 PRANAY PIRES KINASE 6 [facility] TOTAL INC INC ECG 72827 PRANAY PIRES ROUTINE 6 [facility] ECG INC INC W/LEAST 12 LDS TRCG ONLY W/O I&R RADIOLOGI 18334 [facility] [facility] ALL C 6 MEDICAL EXAMINATI IMAGING ON CHEST ASS SINGLE VIEW FRONTAL COMPREHEN 55013 PRANAY PIRES SIVE 6 [facility] [address] PRANAY PIRES TROPONIN 6 [facility] QUANTITAT INC INC MIGUE INITIAL 38849 [facility] 6 PHYSICIAN MAT CARE/DAY S GROUP 70 MINUTES BLOOD 37415 [facility] PIRES COUNT 6 [facility] COMPLETE INC INC AUTO&AUTO DIFRNTL WBC NONINVASI 23496 [facility] PIRES VE 6 [facility] EAR/PULSE INC INC OXIMETRY SINGLE DETER INITIAL 35968 [facility] OBSERVAT[facility] 6 PHYSICIAN [place] [...] MEDICAL AIRWAY EQUIPME EQUIPME PRESSURE DEVICE DESTRUCTI 03347 FALLIS TESSIE ON BENIGN 6 PLACIDO AVTAR [...] MEDICAL AIRWAY EQUIPME EQUIPME PRESSURE DEVICE BLOOD 93782 PRANAY BILLY COUNT 6 [facility] COMPLETE INC AUTO&AUTO DIFRNTL WBC LIPID 97160 PRANAY PIRES PANEL 6 [facility] INC INC COMPREHEN 06802 PRANAY PIRES SIVE 6 [facility] METABOLIC INC INC PANEL US SOFT 66976 PRANAY BILLY TISSUE 6 [facility] HEAD & INC NECK REAL TIME IMGE DOCM FINAL RPT G[address]/MRI 6 MEDICAL FREDDY CHEST/NCK IMAGING /U/S NO ASS THR NOD<1.0 [place] [address] PRANAY PIRES PARATHORM 6 [facility] ONE INC INC CALCIUM 51095 PRANAY PIRES IONIZED 6 [facility] [place] [address] PRANAY PIRES THYROXINE 6 [facility] [place] [address] PRANAY PIRES THYROID 6 [facility] STIMULATI INC INC NG HORMONE TSH COLLECTIO 93139 PRANAY PIRES N VENOUS 6 [facility] BLOOD INC INC VENIPUNCT URE O2 CONC 1 E1390 SAMMY [place] 6 HOME HOME 85%/>02 MEDICAL MEDICAL CONC AT EQUIPME EQUIPME PRS FLW RATE CONTINUOU E0601 SAMMY CHRISTIANSON S 6 HOME HOME POSITIVE MEDICAL MEDICAL AIRWAY EQUIPME EQUIPME PRESSURE DEVICE DUP-SCAN 64059 PRANAY PIRES XTR VEINS 6 [facility] INC INC UNILATERA L/LIMITED STUDY O2 CONC 1 E1390 SAMMY HANSON PORT 6 HOME HOME 85%/>02 MEDICAL MEDICAL CONC AT EQUIPME EQUIPME PRS FLW RATE PREHTN/HT G8952 [facility] N BP DOC 6 PHYSICIAN U SERA INDCD F/U S, PLLC NOT DOC RSN NOT GIVN THERAPEUT 76817 PRANAY PIRES IC 6 [facility] PROPHYLAC INC INC TIC/DX INJECTION SUBQ/IM [...] W/POS EQUIPME EQUIPME ARWAY PRESSURE DEVICE COMPREHEN 17821 ALEXANDER MUNOZ SIVE 6 [facility] PANEL COLLECTIO 35818 [facility] N VENOUS 6 [facility] [place] [place] [address] [facility] INFUSION [address] [place] [address] [facility] EACH ADDITIONA L HOUR URNLS DIP 99354 [facility] [address] [place] [address] STICK/TAB [facility] LET REAGENT AUTO MICROSCOP Y BLOOD 83368 ALEXANDER MUNOZ COUNT 6 [facility] AUTO&AUTO DIFRNTL WBC THER 99853 ALEXANDER MUNOZ PROPH/DX 6 [facility] NJX IV [facility]OSPITAL PUSH SINGLE/1S T SBST/DRUG O2 CONC 1 E1390 SAMMYANIL CHRISTIANSON DEL PORT 5 HOME HOME 85%/>02 MEDICAL MEDICAL CONC AT EQUIPME EQUIPME PRSC FLW RATE POLYSOM 52050 ANNAMARIE ALMAGUER ALMAGUER ANNAMARIE 6/>YRS 5 MD SLEEP 4/> CONSULTIN ADDL G SRV JESSIKA ATTND POLYSOM 53319 ALEXANDER MUNOZ 6/>YRS 5 [facility] SLEEP 4/> HOSPITAL HOSPITAL ADDL JESSIKA ATTND PARATHYRO 21154 PRANAY PIRES ID PLANAR 5 [facility] IMAGING INC INC TECHNETIU A9500 PRANAY PIRES M TC-99M 5 [facility] SESTAMIBI INC INC DX PER STUDY DOSE CALCIUM 24357 PRANAY PIRES TOTAL 5 [facility] INC INC CALCIUM 26649 PRANAY PIRES IONIZED 5 [facility] INC INC COLLECTIO 01950 PRANAY PIRES N VENOUS 5 [facility] BLOOD INC INC VENIPUNCT URE O2 CONC 1 E1390 SMAMY SAMMY DEL PORT 5 HOME HOME 85%/>02 MEDICAL MEDICAL CONC AT EQUIPME EQUIPME PRSC FLW RATE O2 CONC 1 E1390 SAMMY SAMMY DEL PORT 5 HOME HOME 85%/>02 MEDICAL MEDICAL CONC AT EQUIPME EQUIPME PRSC FLW RATE US SOFT 63255 PRANAY PIRES TISSUE 5 [facility] HEAD & INC INC NECK REAL TIME IMGE DOCM CATH PLMT 74026 [facility] HRT & 5 [facility] RateItAll MEDICAL W/NJX & G ANGIO IMG S&I COLLECTIO 59592 ALEXANDER MUNOZ N VENOUS 5 [facility] [place] [place] [address] ALEXANDER MUNOZ HEAD/BRAI [address] [place] [address] W/O [facility] CONTRAST MATERIAL COMPREHEN 51011 ALEXANDER MUNOZ SIVE [address] [place] [address] [place] [address] ALEXANDER MUNOZ THYROID 5 [facility] TSH INFUSION J7030 ALEXANDER MUNOZ NORMAL 5 [facility] SOLUTION 1000 CC ECG 85697 [facility] II ROUTINE 5 CHRIS THO ECG EMERGENCY W/LEAST PHYS 12 LDS I&R ONLY ECG 54581 ALEXANDER MUNOZ ROUTINE 5 [facility] W/LEAST 12 LDS TRCG ONLY W/O I&[place] [address] ALEXANDER MUNOZ TROPONIN 5 [facility] MIGUE BLOOD 33938 ALEXANDER MUNOZ COUNT 5 [facility] AUTO&AUTO DIFRNTL WBC NONCOVERE A9270 ALEXANDER NGON D ITEM OR 5 [facility] O2 CONC 1 E1390 SAMMY [...] AT EQUIPME EQUIPME PRSC FLW RATE COMPREHEN 40817 ALEXANDER MUNOZ SIVE 5 [facility] PANEL INJECTION J2405 ALEXANDER MUNOZ [address] [place] [address] [place] [address] [place] [address] [place] SCALF NAS HEAD/BRAI 5 RADIOLOGY N W/O CONTRAST MATERIAL COLLECTIO 63612 ALEXANDER [facility] N VENOUS 5 [facility] VENIPUNCT URE NONCOVERE A9270 ALEXANDER MUNOZ D ITEM OR 5 [facility] BLOOD 95599 ALEXANDER NGON COUNT 5 [facility] HOSPITAL AUTO&AUTO DIFRNTL WBC THER 33735 ALEXANDER MUNOZ PROPH/DX 5 [facility] IV [facility] HOSPITAL PUSH SINGLE/1S T SBST/DRUG RADEX 20946 ALEXANDER MUNOZ HAND [address] H[facility]PITAL VIEWS O2 CONC 1 E1390 SAMMY CHRISTIANSON DEL PORT 5 HOME HOME 85%/>02 MEDICAL MEDICAL CONC AT EQUIPME EQUIPME PRSC FLW RATE COMPREHEN 97040 ALEXANDER MOCKE 5 [facility] PANEL RADIOLOGI 32966 ALEXANDER NGON C 5 [facility] HOSPITAL ON KNEE 1/2 VIEWS COLLECTIO 84501 ALEXANDER MUNOZ N VENOUS 5 [facility] VENIPUNCT URE BLOOD 79607 ALEXANDER NGON COUNT 5 [facility]OS[facility]ITAL AUTO&AUTO DIFRNTL WBC O2 CONC 1 E1390 SAMMY SAMMY DEL PORT 5 HOME HOME 85%/>02 MEDICAL MEDICAL CONC AT EQUIPME EQUIPME PRSC FLW RATE O2 CONC 1 E1390 SAMMY SAMMY DEL PORT 5 HOME HOME 85%/>02 MEDICAL MEDICAL CONC AT EQUIPME EQUIPME PRS FLW RATE ECG 25720 [facility] ROUTINE 5 [facility] ECG EMERGENCY W/LEAST PHYS 12 LDS I&R ONLY CREATINE 16823 ALEXANDER MUNOZ KINASE MB 5 [facility] ONLY ECG 40622 ALEXANDER MUNOZ ROUTINE 5 [facility] W/LEAST 12 LDS TRCG ONLY W/O I&R CREATINE 85302 [place] ALEXANDER KINASE 5 [facility] COMPREHEN 77091 [place] ALEXANDER SIVE 5 [facility] PANEL CUL BACT 71616 [place] ALEXANDER XCPT 5 [facility] BLOOD/STO OL AEROBIC ISOL CUL BACT 69993 [place] ALEXANDER AEROBIC 5 [facility] METHS DEFINITIV E EA ISOL COLLECTIO 52162 ALEXANDER BERENICEON N VENOUS 5 [facility] VENIPUNCT URE RADIOLOGI 23767 ALEXANDER OLIVAJOCELYNON C 5 [facility] ON CHEST SINGLE VIEW FRONTAL BLOOD 53325 [place] OLIVAJOCELYNON COUNT 5 [facility] AUTO&AUTO DIFRNTL WBC CULTURE 16234 ALEXANDER MUNOZ BACTERIAL 5 [facility] AEROBIC W/ID ISOLATES SUSCEPTIB 17476 ALEXANDER MUNOZ LTY STDY 5 [facility] IAL MICRO/AGA R DILUTJ SMR PRIM 90985 ALEXANDER MUNOZ SRC 5 [facility] SA STAIN BCT FUNGI/[place] [address] ALEXANDER MUNOZ TROPONIN 5 [place] [address] ALEXANDER MUNOZ INFUSION 5 [facility] INITIAL 31 MIN-1 HOUR XTRNL ECG 96584 ANNAMARIE ALMAGUER ALMAGUER ANNAMARIE 5 MD CONTINUOU CONSULTIN S RHYTHM G SRV W/I&R UP TO 48 HRS CV STRS 04292 ANNAMARIE ALMAGUER ALMAGUER ANNAMARIE TST 5 MD XERS&/OR CONSULTIN RX CONT G SRV ECG I&R ONLY CV STRS 24327 ALEXANDER MUNOZ TST 5 [facility] XERS&/OR HOSPITAL HOSPITAL RX CONT ECG TRCG ONLY XTRNL ECG 43297 ANNAMARIE ALMAGUER ALMAGUER ANNAMARIE & 48 HR 5 MD RECORDING CONSULTIN G SRV NONINVASI 44619 ALEXANDER MUNOZ VE 5 [facility] EAR/[facility] OXIMETRY OVERNIGHT MONITOR MYOCARDIA 71864 ANNAMARIE ALMAGUER ALMAGUER ANNAMARIE L SPECT 5 MULTIPLE CONSULTIN STUDIES G SRV TECHNETIU A9500 ALEXANDER MUNOZ M TC-99M [address] [facility] DX PER STUDY DOSE NONINVASI 66004 ANNAMARIE ALMAGUER ALMAGUER ANNAMARIE VE 5 MD EAR/PULSE CONSULTIN OXIMETRY G SRV OVERNIGHT MONITOR DUPLEX 93042 ANNAMARIE ALMAGUER ALMAGUER ANNAMARIE SCAN 5 MD EXTRACRAN CONSULTIN IAL ART G SRV COMPL BI STUDY ECHO 66806 ANNAMARIE ALMAGUER ALMAGUER ANNAMARIE TTHRC R-T 5 2D CONSULTIN W/WOM-MOD G SRV E COMPL SPEC&COLR D SODIUM 12406 LAB ERIC LAB ERIC SERUM 5 BRISSA BRISSA PLASMA OR [employer] WHOLE BLOOD PROTEIN 40029 LAB ERIC LAB ERIC XCPT 5 BRISSA BR[facility]SA REFRACTOM [employer] ETRY SERUM PLASMA/WH L BLD SUSCEPTIB 73724 LAB ERIC LAB ERIC LTY STDY 5 BRISSA BR[facility]SA ANTIMICRB [employer] IAL MICRO/AGA R DILUTJ GLUCOSE 08504 LAB ERIC LAB ERIC QUANTITAT 5 BRISSA BRISSA MIGUE BLOOD [employer] XCPT REAGENT STRIP CULTURE 29075 LAB ERIC LAB ERIC BCT 5 BRISSA BRISSA ISOL&PRSM [employer] [place] [address] LAB ERIC LAB ERIC UREA 5 BRISSA BRISSA NITROGEN [employer] QUANTITAT MIGUE CUL BACT 27485 LAB ERIC LAB ERIC AEROBIC 5 BRISSA BRISSA ADDL [employer] METHS DEFINITIV E EA ISOL PROTEIN 15390 LAB ERIC LAB ERIC TOTAL 5 BRISSA BRISSA XCPT [employer] REFRACTOM ETRY URINE TRANSFERA 59319 LAB ERIC LAB ERIC SE 5 BRISSA BRISSA ASPARTATE [employer] AMINO AST SGOT CREATININ 14376 LAB ERIC LAB ERIC E OTHER 5 BRISSA [place] [address] LAB ERIC LAB ERIC PHOSPHATA 5 BRISSA BRISSA SE [employer] ALKALINE BLOOD 14430 LAB ERIC LAB ERIC COUNT 5 BRISSA BRISSA RETICULOC [employer] YTE AUTOMATED POTASSIUM 87411 LAB ERIC LAB ERIC SERUM 5 BRISSA BRISSA PLASMA/WH [facility] [facility] OLE BLOOD [facility] LUMBAR [address] [facility] SPINE 5 [facility] W/O MELLY MELLY CONTRAST MATERIAL BILIRUBIN 94127 LAB ERIC LAB ERIC TOTAL 5 BRISSA BRISSA [employer] CALCIUM 73453 LAB ERIC LAB ERIC TOTAL 5 BRISSA BRISSA [employer] POTASSIUM 18538 LAB ERIC LAB ERIC SERUM 5 BRISSA BRISSA PLASMA/WH [employer] OLE BLOOD CREATININ 12088 LAB ERIC LAB ERIC E BLOOD 5 BRISSA BRISSA [employer] 25 59509 LAB ERIC LAB ERIC HYDROXY 5 BRISSA BRISSA INCLUDES [employer] FRACTIONS IF PERFORMED CHLORIDE 04197 LAB ERIC LAB ERIC BLD 5 BR[place] [address] LAB ERIC LAB ERIC PHOSPHATA 5 BRISSA BRISSA SE [employer] ALKALINE TRANSFERA 28228 LAB ERIC LAB ERIC SE 5 BRISSA BRISSA ASPARTATE [employer] [place] [address] LAB ERIC LAB ERIC UREA 5 BRISSA BRISSA NITROGEN [employer] QUANTITAT MIGUE COLLECTIO 41016 PADMINI HORNER FLAKITA N VENOUS 5 CLINIC BLOOD VENIPUNCT URE GLUCOSE 35725 LAB ERIC LAB ERIC QUANTITAT 5 BRISSA BRISSA MIGUE BLOOD [employer] XCPT REAGENT STRIP ALBUMIN 72860 LAB ERIC LAB ERIC SERUM 5 BRISSA BRISSA PLASMA/WH [employer] OLE BLOOD PROTEIN 07881 LAB ERIC LAB ERIC XCPT 5 BRISSA BRISSA REFRACTOM [employer] ETRY SERUM PLASMA/WH L BLD SODIUM 70834 LAB ERIC LAB ERIC SERUM 5 [facility] PLASMA OR [employer] WHOLE BLOOD RADEX 72186 [facility] RIBS 5 [facility] [address] [place] [address] [place] CERVICAL 5 RADIOLOGY RAY SPINE W/[place] [address] [place] HEAD/BRAI 5 RADIOLOGY RAY N W/O CONTRAST MATERIAL RADEX 83052 [facility] [place] RACHEL HAND 5 RADIOLOGY RHO MINIMUM 3 VIEWS RADEX 34612 [place] RIBS UNI 5 RADIOLOGY RHO W/POSTERO ANT CH MINIMUM 3 VIEWS RADIOLOGI 66939 [facility] C [address] [place] [address] ON CHEST SINGLE VIEW FRONTAL STRAPPING 83096 [facility] [place] 5 CHRIS HAND/FING EMERGENCY ER PHYS RADIOLOGI 85414 [place] RACHEL C 5 RADIOLOGY RHO EXAMINATI ON PELVIS 1/[address] [place] [address] [place] BILY[place] MAXILLOFA 5 RADIOLOGY RAY CIAL W/O CONTRAST MATERIAL Encounters Encounter Start End Date Code Location Performer Type Date OFFICE 41587 [facility] ARE[facility]O OUTPATIEN 7 7 PHYSICIAN T VISIT S GROUP 15 MINUTES OFFICE 05989 [facility] OUTPATIEN 7 7 PHYSICIAN T VISIT S GROUP 15 MINUTES HOSPITAL PRANAY - OTHER 7 7 [facility] OFFICE 03296 [facility] GARCIA OUTPATIEN 7 7 PHYSICIAN T VISIT S GROUP 15 MINUTES HOSPITAL PRANAY - 7 7 [facility] PRANAY - 7 7 [facility] OUTPATIEN INC T OFFICE 23051 [facility] KALIN OUTPATIEN 7 7 PHYSICIAN T VISIT S GROUP 25 MINUTES HOSPITAL UK - 7 7 [facility] OFFICE 14393 [facility] FRYMAN OUTPATIEN 7 7 PHYSICIAN T VISIT GROUP 15 MINUTES HOSPITAL PRANAY - OTHER 6 6 [facility] INC OFFICE 32120 [facility] KALIN OUTPATIEN 6 6 PHYSICIAN MAT T VISIT S GROUP 25 MINUTES [facility] PRANAY - 6 6 [facility] OUTPATIEN INC T OFFICE 40850 [facility] KALIN OUTPATIEN 6 6 PHYSICIAN MAT T VISIT S GROUP 25 MINUTES HOSPITAL PRANAY - 6 6 [facility] OUTPATIEN INC T OFFICE 64202 [facility] ARELL[facility]O OUTPATIEN 6 6 PHYSICIAN MONSTER T VISIT S GROUP 10 MINUTES HOSPITAL PRANAY - 6 6 [facility] OUTPATIEN INC [facility] PRANAY - 6 6 [facility] OUTPATIEN INC T OFFICE 29968 [facility] ARE[facility] OUTPATIEN 6 6 PHYSICIAN MONSTER T VISIT S GROUP 10 MINUTES HOSPITAL PRANAY - 6 6 [facility] OUTPATIEN INC T OFFICE 57634 [facility] PAVEZ MAR OUTPATIEN 6 6 PHYSICIAN T NEW 30 S GROUP MINUTES [facility] UNIVERSIT - 6 6 [facility] 71770 [facility] ARELLANO OUTPATIEN 6 6 PHYSICIAN MONSTER T VISIT S GROUP 10 MINUTES HOSPITAL PRANAY - OTHER 6 6 [facility] PRANAY - [address] [facility] T OFFICE 46832 F[facility] TESSIE OUTPATIEN 6 6 PLACIDO AVTAR T VISIT 15 MINUTES OFFICE 34394 [place] PEAR[place] OUTPATIEN 6 6 MEDICAL JAM T VISIT SERV 25 FOUNDATIO MINUTES HOSPITAL UNIVERSIT - 6 6 Y [facility] T OFFICE 60869 [facility] ARELLANO OUTPATIEN 6 6 PHYSICIAN MONSTER T VISIT S GROUP 10 MINUTES OFFICE 76494 [facility] IMSA TOD OUTPATIEN 6 6 PHYSICIAN T VISIT S GROUP 15 MINUTES HOSPITAL PRANAY - 6 6 [facility] 10719 [facility] KALIN OUTPATIEN 6 6 PHYSICIAN MAT T VISIT S GROUP 25 MINUTES OFFICE 44393 [place] PEARCE OUTPATIEN 6 6 MEDICAL JAM T NEW 45 SERV MINUTES [facility] OFFICE 46624 [facility] KALIN OUTPATIEN 6 6 PHYSICIAN MAT T VISIT S GROUP 25 MINUTES HOSPITAL PRANAY - 6 6 [facility] T EMERGENCY 19426 PRANAY 6 6 [facility] T VISIT HIGH/URGE NT SEVERITY EMERGENCY 39591 [facility] DEPT 6 6 PHYSICIAN U SERA VISIT S, PLLC HIGH SEVERITY& THREAT FUN HOSPITAL PRANAY - [address] [facility] T OFFICE 60773 F[facility] TESSIE OUTPATIEN 6 6 PLACIDO AVTAR T NEW 30 MINUTES OFFICE 68901 [facility] GARCIA OUTPATIEN 6 6 PHYSICIAN EMERY T VISIT S GROUP 15 MINUTES OFFICE 77834 [facility] PHYSICIAN EMERY T NEW 45 S GROUP MINUTES HOSPITAL PRANAY [facility] 6 6 [facility] PRANAY - 6 6 [facility] 89315 [facility] 6 6 PHYSICIAN U SERA [facility] S, [facility] T VISIT MODERATE SEVERITY HOSPITAL PRANAY - 6 6 [facility] 09211 PRANAY 6 6 [facility] VISIT LOW/MODER SEVERITY EMERGENCY 71775 [facility] 6 6 [facility] T VISIT HIGH/URGE NT SEVERITY HOSPITAL ALEXANDER - [address] [facility] EMERGENCY 75478 [facility] DEPT 6 6 CHRIS SERA VISIT EMERGENCY HIGH PHYS SEVERITY& THREAT [facility] HOSPITAL ALEXANDER - [address] [facility] HOSPITAL PRANAY [facility] 5 5 [facility] PRANAY - 5 5 [facility] OFFICE 19425 [facility] 5 5 [facility] T NEW 45 MEDICAL MINUTES G EMERGENCY 12907 [facility] DE[facility] 5 5 CHRIS THO VISIT EMERGENCY HIGH PHYS SEVERITY& THREAT [facility] HOSPITAL BERENICEON - 5 5 [facility] T EMERGENCY 16909 ALEXANDER 5 5 [facility] T VISIT HIGH/URGE NT SEVERITY EMERGENCY 32360 ALEXANDER 5 5 [facility] T VISIT HIGH/URGE NT SEVERITY HOSPITAL ALEXANDER - [address] [facility] [place] - 5 5 [facility] [address] [facility] [place] [address] [facility] EMERGENCY [address] [place] [address] [facility] VISIT HIGH/URGE NT SEVERITY EMERGENCY 77969 [facility] 5 [facility] VISIT EMERGENCY HIGH PHYS SEVERITY& THREAT [facility] [place] [address] 5 [facility] [place] [address] [facility] OFFICE 00305 PADMINI HORNER [place] [address] 5 [facility] T VISIT 25 MINUTES EMERGENCY [address] [place] [address] [facility] VISIT MODERATE SEVERITY [facility] [place] [address] [facility] EMERGENCY 66357 [facility] DEPT 5 5 [facility]IS VISIT EMERGENCY HIGH PHYS SEVERITY& THREAT [facility]
--- OUTSIDE RECORDS SUMMARY | 2016-10-24 16:36 | External Medical Summary Rpt ---
Author Author , Organization [employer] Address Unknown Phone Unavailable Care Team Providers Care Plater Printed Circuit Board Panels Name Role Phone [facility] Unavailable Unavailable ON ESDRAS, [facility] ON ESDRAS [facility] Unavailable Unavailable ON ESDRAS, [facility] ON ESDRAS HORNER, HORNER Unavailable Unavailable HORNER ALL, HORNER ALL Unavailable Unavailable HORNER FLAKITA, HORNRE FLAKITA Unavailable Unavailable [facility] Unavailable Unavailable HOSPITAL, [facility] TESSIE AVTAR, TESSIE Unavailable Unavailable AVTAR [facility], Unavailable Unavailable [facility] GARCIA, GARCIA Unavailable Unavailable GARCIA EMERY, GARCIA Unavailable Unavailable EMERY [facility], Unavailable Unavailable [facility] ALMAGUER ANNAMARIE, ALMAGUER ANNAMARIE Unavailable Unavailable CHACHO FREDDY, Unavailable Unavailable CHACHO FREDDY [facility] Unavailable Unavailable [facility], [facility] THO, [facility] II Unavailable Unavailable THO FALLIS PLACIDO, FALLIS Unavailable Unavailable PLACIDO [facility] Unavailable Unavailable TRANSPORTATION SER, [facility] FRYMAN, FRYMAN Unavailable Unavailable YOLANDA LEIGHTON, YOLANDA Unavailable Unavailable LEIGHTON RACHEL RHO, RACHEL Unavailable Unavailable RHO [facility] Un[facility] Unavailable [facility], [facility], Un[facility] Unavailable [facility], Unavailable Unavailable [facility] MARLOW CAROLA, MARLOW CAROLA Unavailable Unavailable [facility] Unavailable Unavailable MEDICAL G, [facility] Unavailable Unavailable [facility], [facility] Unavailable Unavailable [facility], [facility] ARELLANO, ARELLANO Unavailable Unavailable ARELLANO MONSTER, ARELLANO Unavailable Unavailable MONSTER ARELLANO MONSTER, ARELLANO Unavailable Unavailable MONSTER DRU JR DWI, DRU Unavailable Unavailable JR DWI PEARCE JAM, Unavailable Unavailable PEARCE JAM [facility] Un[facility] Unavailable [facility], [facility] Unavailable Unavailable [facility], [facility] N[facility]UCHE [facility], NWAUCHE Unavailable Unavailable [facility] ANNAMARIE ALMAGUER MD Unavailable Unavailable CONSULTING SRV, ANNAMARIE ALMAGUER MD CONSULTING SRV [facility], Unavailable Unavailable PLLC, [facility] PAVEZ MAR, PAVEZ MAR Unavailable Unavailable ISMA TOD, ISMA TOD Unavailable Unavailable NAE LEIGHTON, Unavailable Unavailable NAE LEIGHTON SCIFRES, SCIFRES Unavailable Unavailable KOHLI SERA, KOHLI Unavailable Unavailable SERA KALIN, KALIN Unavailable Unavailable KALIN MAT, Unavailable Unavailable KALIN MAT [facility] Unavailable Unavailable [facility], [facility] Unavailable Unavailable [facility], [facility] SOTINGEANU SERA, Unavailable Unavailable SOTINGEANU SERA [facility] Unavailable Unavailable EMERGENCY PHYS, [facility] Unavailable Unavailable MELLY, [facility] BILLY, BILLY Unavailable Unavailable [facility] Unavailable Unavailable HOSPITALS, [facility], Unavailable Unavailable [facility] Un[facility], Unavailable [facility], Unavailable [facility]available [facility] Purpose Continuity of Care Document - 06-01-2014 through 2016 Problems Code Diagnosis DOS Provider Status J449 CHRONIC 10-03-2016 [facility] DISEASE UNS I10 ESSENTIAL 09-27-2016 [facility] AGENCY HYPERTENSIO ON ESDRAS N E039 HYPOTHYROID 09-22-2016 [facility] ISM PHYSICIANS UNSPECIFIED GROUP [id number] OTHER 09-10-2016 [facility] N3281 OVERACTIVE 09-03-2016 [facility] BLADDER PHYSICIANS GROUP N3941 URGE 09-03-2016 [facility] INCONTINENC PHYSICIANS E GROUP H2513 AGE-RELATED 08-18-2016 [facility] BILATERAL R922 INCONCLUSIV 07-31-2016 [facility] R928 OTH ABNORM 07-31-2016 [facility]ICAL INCONCLUSIV IMAGING ASS E FIND ON DX IMAG BREAST E785 HYPERLIPIDE 07-09-2016 [facility] RADHA PHYSICIANS UNSPECIFIED GROUP R0789 OTHER CHEST 07-09-2016 [facility] PAIN PHYSICIANS GROUP R69 ILLNESS 07-09-2016 [facility] UNSPECIFIED TRANSPORTAT ION SER K219 GASTRO-ESOP 06-30-2016 [facility] DISEASE HOSPITALS WITHOUT ESOPHAGITIS 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 [facility] GOITER PHYSICIAN UNSPECIFIED GROUP E069 THYROIDITIS 06-18-2016 [facility] PHYSICIAN UNSPECIFIED GROUP E8352 HYPERCALCEM 06-18-2016 [facility] IA PHYSICIAN GROUP I2510 ASHD [place] 06-18-2016 [facility] 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 ANGINA PECTORIS K469 UNS 06-18-2016 [facility] ABDOMINAL PHYSICIAN HERNIA W/O GROUP OBSTRUCTION OR GANGRENE N3946 MIXED 06-18-2016 [facility] INCONTINENC PHYSICIANS E GROUP E119 TYPE 2 04-22-2016 [facility]AB[facility]ES [facility] MELLITUS INC WITHOUT COMPLICATIO NS E669 OBESITY 04-22-2016 [facility] UNSPECIFIED PHYSICIANS GROUP R0602 SHORTNESS 04-22-2016 [facility] OF BREATH [facility] INC X49743 UNSPECIFIED 04-18-2016 [facility] HOME UNCOMPLICAT MEDICAL ED EQUIPME R0600 DYSPNEA 04-15-2016 [facility] UNSPECIFIED PHYSICIANS GROUP R110 NAUSEA 03-31-2016 [facility] SE R42 DIZZINESS 03-31-2016 [facility] AM[facility] SE M150 PRIMARY 03-03-2016 [facility] GENERALIZED HOME MEDICAL OSTEOARTHRI EQUIPME TIS M533 SACROCOCCYG 03-03-2016 [facility] EAL HOME DISORDERS MEDICAL NEC EQUIPME M549 DORSALGIA 03-03-2016 [facility] UNSPECIFIED HOME MEDICAL EQUIPME F12147 DIFFUSE 02-28-2016 ARELLANO MONSTER OTITIS EXTERNA BILATERAL H6903 PATULOUS 02-28-2016 ARELLANO MONSTER EUSTACHIAN TUBE BILATERAL H905 UNSPECIFIED 02-28-2016 [facility] PHYSICIANS SENSORINEUR GROUP AL HEARING LOSS G4733 OBSTRUCTIVE 02-27-2016 [facility] SLEEP HOME APNEA ADULT MEDICAL PEDIATRIC EQUIPME R079 CHEST PAIN 02-14-2016 [facility] UNSPECIFIED [facility] INC G4730 SLEEP APNEA 02-12-2016 [facility] UNSPECIFIED INC H6590 UNSPECIFIED 02-01-2016 [facility] PHYSICIANS NONSUPPURAT GROUP MIGUE OTITIS MEDIA UNS EAR R040 EPISTAXIS 02-01-2016 [facility] PHYSICIANS GROUP Z1231 ENCOUNTER 01-25-2016 [facility] SCREENING [facility] MAMMO MALIG IMAGING ASS NEOPLASM BREAST G8929 OTHER 01-07-2016 [facility] CHRONIC PHYSICIANS PAIN GROUP D649 ANEMIA 12-27-2015 [facility] J342 DEVIATED 12-13-2015 [facility] NASAL PHYSICIANS SEPTUM GROUP I351 NONRHEUMATI 12-07-2015 [facility] AORTIC SERV VALVE FOUNDATION INSUFFICIEN CY I358 OTHER 12-07-2015 [facility] NONRHEUMATI MEM [facility]OS[facility] C AORTIC INC VALVE DISORDERS J432 CENTRILOBUL 12-07-2015 [facility] EMPHYSEMA IMAGING ASS J984 OTHER 12-07-2015 [facility] DISORDERS [facility] OF LUNG INC Z862 PERSONAL HX 12-07-2015 [facility] DZ [facility] BLOOD&BLOOD INC FORM ORGN IMMUNE MECH B351 TINEA 11-29-2015 [facility] PLACIDO UNGUIUM I890 LYMPHEDEMA 11-29-2015 [facility] PLACIDO NOT ELSEWHERE CLASSIFIED M2570 OSTEOPHYTE 11-29-2015 [facility] PLACIDO UNSPECIFIED JOINT A57103 PAIN IN 11-29-2015 [facility] PLACIDO RIGHT TOES Y73840 PAIN IN 11-29-2015 [facility] PLACIDO LEFT TOES J71507 PRIMARY 11-28-2015 [facility] OSTEOARTHRI MEDICAL TIS RIGHT IMAGING ASS HAND T43940 PAIN IN 11-28-2015 [facility] RIGHT HAND MEDICAL IMAGING ASS M7989 OTHER 11-28-2015 [facility] SPECIFIED MEDICAL SOFT TISSUE IMAGING ASS DISORDERS R0902 HYPOXEMIA 11-28-2015 [facility] R109 UNSPECIFIED 11-28-2015 [facility] MEDICAL ABDOMINAL SERV PAIN FOUNDATION [id number] UNS FX RT 11-28-2015 [facility] MEDICAL WRIST HAND SERV INITIAL ENC FOUNDATION CLOS FRACTURE Z8673 PERSONAL HX 11-28-2015 [facility] TIA & MEM [facility]OS[facility] CEREB INC INFARCT NO RESID DEFICIT N86078 PERSONAL 11-28-2015 [facility] HISTORY OF MEM HOSP OTHER INC SPECIFIED CONDITIONS H6092 UNSPECIFIED 11-22-2015 [facility] OTITIS PHYSICIANS EXTERNA GROUP LEFT EAR J029 ACUTE 11-22-2015 [facility] PHARYNGITIS PHYSICIANS GROUP UNSPECIFIED L989 DISORDER 11-19-2015 [facility] THE SKIN & PHYSICIANS SUBCUTANEOU GROUP S TISSUE UNS I209 ANGINA 11-13-2015 [facility] PECTORIS PHYSICIANS UNSPECIFIED GROUP U79762 PERSONAL 10-24-2015 [facility] MEDICAL HISTORY OF SERV NICOTINE FOUNDATION DEPENDENCE V00642 ASHD [place] 10-08-2015 [facility] COR ARTREY PHYSICIANS W/UNS GROUP ANGINA PECTORIS B078 OTHER VIRAL 09-27-2015 [place] PLACIDO WARTS T34240 PAIN IN 09-27-2015 [place] PLACIDO LEFT FOOT N952 POSTMENOPAU 08-29-2015 [facility] TIFFANY PHYSICIANS ATROPHIC GROUP VAGINITIS R350 FREQUENCY 08-29-2015 [facility] OF PHYSICIANS MICTURITION GROUP R351 NOCTURIA 08-29-2015 [facility] PHYSICIANS GROUP E042 NONTOXIC 07-18-2015 [facility] MULTINODULA MEDICAL R GOITER IMAGING ASS I86056 PAIN IN 06-04-2015 [facility] RIGHT LEG [facility] INC M78699 PAIN IN 06-04-2015 [facility] RIGHT LOWER MEDICAL LEG IMAGING ASS A24066 ACUTE EMBO 06-03-2015 [facility] THROMB UNS [facility] DEEP VEINS INC RT LOWER EXTREM L309 DERMATITIS 06-03-2015 [facility] UNSPECIFIED MEM HOSP INC V58044 PAIN IN 06-03-2015 [facility] KNEE PHYSICIANS, [facility] E780 PURE 05-28-2015 [facility] H8110 BENIGN 05-28-2015 [facility] UNSPECIFIED EAR H8112 BENIGN 05-28-2015 [facility] V[facility] PHYS LEFT EAR Z7982 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 PLANT 05-28-2015 [facility] CURRENT USE [facility] E18095 OTHER LONG 05-28-2015 [facility] HOSPITAL DRUG THERAPY G4710 HYPERSOMNIA 05-01-2015 ANNAMARIE ALMAGUER MD UNSPECIFIED CONSULTING SRV G478 OTHER SLEEP 04-28-2015 [facility] DISORDERS [facility] M5383 OTHER SPEC 04-28-2015 [facility] DORSOPATHIE [facility] CERVICOTHOR ACIC REGION R0683 SNORING 04-28-2015 [facility] E041 NONTOXIC 04-04-2015 [facility] SINGLE [facility] THYROID INC NODULE 2449 UNSPECIFIED 02-16-2015 [facility] HYPOTHYROID IMAGING ASS ISM 51477 DYSPHAGIA 02-16-2015 [facility] UNSPECIFIED [facility]ICAL IMAGING ASS 4139 OTHER AND 02-14-2015 [facility] UNSPECIFIED HEALTH ANGINA MEDICAL G PECTORIS 57510 CHEST PAIN 02-14-2015 [facility] UNSPECIFIED HEALTH MEDICAL G 2720 PURE 02-04-2015 [facility] 4019 UNSPECIFIED 02-04-2015 [facility] ESSENTIAL [facility] HYPERTENSIO HOSPITAL N 496 CHRONIC 02-04-2015 [facility] AIRWAY [facility] OBSTRUCTION HOSPITAL NEC 19975 ESOPHAGEAL 02-04-2015 [facility] REFLUX [facility] 7804 DIZZINESS 02-04-2015 [facility] N EMERGENCY GIDDINESS PHYS 36826 NAUSEA WITH 02-04-2015 [facility] VOMITING [facility] V5869 LONG-TERM 02-04-2015 [facility] (CURRENT) [facility] USE OF HOSPITAL OTHER MEDICATIONS 89082 GEN 02-01-2015 [facility] OSTEOARTHRO HOME SIS MEDICAL INVOLVING EQUIPME MULTIPLE SITES 7245 UNSPECIFIED 02-01-2015 [facility] BACKACHE HOME MEDICAL EQUIPME 06215 OTHER 02-01-2015 [facility] DISORDER OF HOME COCCYX MEDICAL EQUIPME 44377 UNSPECIFIED 01-05-2015 [facility] URINARY HOME INCONTINENC MEDICAL E EQUIPME 82673 VOMITING 10-25-2014 [place] ALONE [facility] V5866 LONG-TERM 10-25-2014 [facility] USE OF [facility] 7295 PAIN IN 10-20-2014 [facility] [place] SOFT [facility] TISSUES OF LIMB 9594 INJURY 10-20-2014 [place] OTHER AND COMMUNITY UNSPECIFIED HOSPITAL HAND EXCEPT FINGER 4659 ACUTE URIS 09-28-2014 [facility] OF [facility] UNSPECIFIED HOSPITAL SITE 27710 PAIN IN 09-28-2014 [facility] [place] JOINT, RADIOLOGY LOWER LEG 36157 DEHYDRATION 07-31-2014 [facility] N EMERGENCY PHYS 2768 HYPOPOTASSE 07-31-2014 [facility] RADHA N EMERGENCY PHYS 4660 ACUTE 07-31-2014 [facility] BRONCHITIS N EMERGENCY PHYS 18956 OTHER CHEST 07-31-2014 [facility] PAIN N EMERGENCY PHYS V143 PERSONAL 07-31-2014 [facility] HISTORY COMMUNITY ALLERGY [facility] ANTI-INFECT MIGUE AGT V146 PERSONAL 07-31-2014 [place] HISTORY OF [facility] ALLERGY TO HOSPITAL ANALGESIC AGENT 7851 PALPITATION 07-25-2014 ANNAMARIE Rose MD CONSULTING SRV 4011 ESSENTIAL 07-20-2014 [place] HYPERTENSIO [facility]LY [facility], [facility] 7197 DIFFICULTY 07-20-2014 [place] IN WALKING [facility] 54049 SHORTNESS 07-20-2014 ANNAMARIE ALMAGUER OF BRE[place] SRV 29407 PRECORDIAL 07-20-2014 ANNAMARIE ALMAGUER PAIN CONSULTING SRV 69939 OCCLUSION&S 07-04-2014 ANNAMARIE DIOP MD CAROTID ART CONSULTING W/O SRV MENTION INFARCT 2809 UNSPECIFIED 06-23-2014 LAB [facility] IRON [facility] DEFICIENCY HOLDINGS ANEMIA 5939 UNSPECIFIED 06-23-2014 LAB [facility] DISORDER [facility] OF KIDNEY HOLDINGS AND URETER 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 IDIOPATHIC [place] E8889 UNSPECIFIED 06-02-2014 LAB ER[facility] FALL [facility] HOLDINGS 8470 NECK SPRAIN 06-01-2014 [facility] STRAIN N EMERGENCY PHYS 920 CONTUSION 06-01-2014 [facility] FACE N EMERGENCY SCALP AND PHYS NECK EXCEPT EYE 9219 UNSPECIFIED 06-01-2014 [facility] CONTUSION N EMERGENCY OF EYE PHYS 36689 CONTUSION 06-01-2014 [facility] OF HAND N EMERGENCY PHYS 9248 CONTUSION 06-01-2014 [facility] OF MULTIPLE COMMUNITY SITES [facility] 65150 INJURY OF 06-01-2014 [facility] [place] FACE AND RADIOLOGY NECK OTHER AND UNSPECIFIED 84230 OTHER 06-01-2014 [facility] [place] INJURY OF RADIOLOGY CHEST WALL 9596 INJURY 06-01-2014 [facility] [place] OTHER AND RADIOLOGY UNSPECIFIED HIP AND THIGH V1582 PERS HX 06-01-2014 [facility] TOBACCO USE COMMUNITY [facility] Procedures Procedure DOS Code Location Performer Comment [facility] Q0513 YOUR YOUR DISPENSIN 7 PHARMACY PHARMACY G FEE Pit My Pet INHALATIO N RX; PER 30 DAYS IPRATROPI J7644 YOUR YOUR UM 7 PHARMACY PHARMACY BROMIDE [employer] INHAL NON-CP U DOSE PER MG [...] S5108 [facility] 7 AREA AREA [facility] AGENCY ON AGENCY ON CARE ESDRAS ESDRAS CLIENT PER 15 MIN HOME CARE S5108 [facility] 7 AREA AREA HOME AGENCY ON AGENCY ON CARE ESDRAS ESDRAS CLIENT PER 15 MIN HOME CARE S5108 [facility] 7 AREA [facility] HOME AGENCY ON AGENCY ON CARE ESDRAS ESDRAS CLIENT PER 15 MIN HOME CARE S5108 [facility] 7 AREA AREA HOME AGENCY ON AGENCY ON CARE ESDRAS ESDRAS CLIENT PER 15 MIN FILTER A7013 [facility] CHRISTIANSON DISPOSABL 7 HOME HOME MEDICAL MEDICAL W/AREOSOL EQUIPME EQUIPME COMPRESS/ US GENERATOR MISC TX T1999 [facility] ITEMS & [address] [facility] AGENCY ON AGENCY ON RETAIL ESDRAS ESDRAS PURCHASE NOC COLLECTIO 38171 [facility] PIRES N VENOUS 7 MEM H[facility] [place] [address] [facility] PIRES FREE 7 MEM H[facility] [place] [address] PR[facility] PIRES THYROID 7 [facility] STIMULATI INC INC NG HORMONE TSH HOME CARE S5108 [facility] TRA[facility] 7 AREA AREA HOME AGENCY ON AGENCY ON CARE SEDRAS ESDRAS CLIENT PER 15 MIN HOME CARE S5108 [facility] TRA[facility] 7 AREA AREA HOME AGENCY ON AGENCY ON CARE ESDRAS ESDRAS CLIENT PER 15 MIN AREO MASK A7015 YOUR YOUR USED W/ 7 PHARMACY PHARMACY [employer] FILTER A7013 YOUR YOUR DISPOSABL 7 PHARMACY PHARMACY [facility] W/AREOSOL COMPRESS/ US GENERATOR HOME CARE S5108 [facility] TRAINING 7 [...] CARE ESDRAS ESDRAS CLIENT PER 15 MIN [facility] [address] [place] [address] VISION XM&EVAL CENTER COMPRHNSV ESTAB PT 1/ HOME CARE S5108 [facility] TRAINING 7 [...] YOUR DISPENSIN 7 PHARMACY PHARMACY G FEE Pit My Pet INHALATIO N RX; PER 30 DAYS IPRATROPI J7644 YOUR YOUR UM 7 PHARMACY PHARMACY BROMIDE [employer] INHAL NON-CP U DOSE PER MG ADMN SET A7005 YOUR YOUR W/SM VOL 7 PHARMACY PHARMACY NONFILTR [employer] NEBULIZR NON-DISPB L HOME CARE S5108 [facility] TRAINING 7 [...] [facility] ITEMS & [address] [facility] AGENCY ON AGENCY ON RETAIL ESDRAS [...] ESDRAS CLIENT PER 15 MIN DIAGNOSTI G0206 [facility] C 7 MEDICAL MAMMOGRAP IMAGING HY INCL ASS CAD WHEN PERF; UNI HOME CARE S5108 [...] MEDICAL W/AREOSOL EQUIPME EQUIPME COMPRESS/ US GENERATOR ECG 13758 [facility] PIRES ROUTINE 7 [facility] ECG INC INC W/LEAST 12 LDS TRCG ONLY W/O I&R NONEMERG A0120 FEDERATED FEDERATED TRNSPRT: 7 [facility] TRANSPORT [facility] S5108 [facility] TRAINING 7 [...] FEDERATED FEDERATED TRNSPRT: 7 MINI-BUS TRANSPORT TRANSPORT MT [facility] S5108 [facility] TRAINING 7 [...] ESDRAS ESDRAS CLIENT PER 15 MIN BLOOD 74549 [facility] COUNT 7 HEALTHCAR HEALTHCAR COMPLETE E E [facility] HOSPITALS COLLECTIO 89887 [place] N VENOUS 7 HEALTHCAR HEALTHCAR BLOOD E [facility] S5108 [facility] TRAINING 7 [...] CARE ESDRAS ESDRAS CLIENT PER 15 MIN [facility] [place] T1999 [facility] ITEMS & [address] [facility] AGENCY ON AGENCY ON RETAIL ESDRAS [...] AREA HOME AGENCY ON AGENCY ON CARE SEDRAS ESDRAS CLIENT PER 15 MIN [facility] T1999 [facility] ITEMS & 6 [...] ESDRAS ESDRAS CLIENT PER 15 MIN LIPID 88080 [facility] PIRES PANEL 6 [facility] H[facility]OS[facility] INC INC BLOOD 92404 [facility] PIRES COUNT 6 MEM H[facility] HOS[facility] COMPLETE INC INC AUTO&AUTO DIFRNTL WBC COMPREHEN 50726 [facility] PIRES SIVE 6 MEM HOS[facility] MEM [place] [address] [facility] PIRES THYROID 6 MEM H[facility] MEM HOS[facility] STIMULATI [place] [address] [facility] PIRES FREE 6 MEM HOSP MEM HOSP THYROXINE INC INC HOME CARE S5108 [facility] TRAINING 6 [...] YOUR DISPENSIN 6 PHARMACY PHARMACY G FEE Pit My Pet INHALATIO N RX; PER 30 DAYS IPRATROPI J7644 YOUR YOUR UM 6 PHARMACY PHARMACY BR[facility] [employer] INHAL NON-CP U DOSE PER MG ECG 19963 PRANAY PRANAY ROUTINE 6 [facility] ECG INC INC W/LEAST 12 LDS TRCG ONLY W/O I&R HOME CARE S5108 [facility] TRAINING 6 AREA AREA HOME AGENCY ON AGENCY ON CARE ESDRAS ESDRAS CLIENT PER 15 MIN ECG 95107 [facility] ROUTINE 6 PHYSICIAN MAT ECG S GROUP W/LEAST 12 LDS I&R ONLY HOME CARE S5108 [facility] TRAINING 6 [...] ESDRAS ESDRAS CLIENT PER 15 MIN ECG 03027 [facility] ROUTINE 6 PHYSICIAN MAT ECG S GROUP W/LEAST 12 LDS I&R ONLY ECG 12156 [facility] PRANAY ROUTINE 6 MEM HOSP MEM [...] CARE ESDRAS ESDRAS CLIENT PER 15 MIN GROUND A0425 PORFIRIO WANEAGE [address] [place] [address] PER AMBULANCE AMBULANCE STATUTE SE SE MILE AMB A0427 PORFIRIO MONROY SERVICE [address] [place] [address] ALS AMBULANCE AMBULANCE EMERGENCY SE [place] [address] [place] [address] GALLITO HORNER ALL HEAD/BRAI 6 MEDICAL N W/O IMAGING CONTRAST ASS MATERIAL HOME CARE S5108 [facility] TRAINING [...] YOUR DISPENSIN 6 PHARMACY PHARMACY G FEE Pit My Pet INHALATIO N RX; PER 30 DAYS IPRATROPI J7644 YOUR YOUR UM 6 PHARMACY PHARMACY BROMIDE [employer] INHAL NON-CP U DOSE PER MG [...] HOME HOME 85%/>02 MEDICAL MEDICAL CONC AT [facility] FLW RATE HOME CARE S5108 [facility] TRAINING 6 AREA AREA HOME AGENCY ON AGENCY ON CARE ESDRAS ESDRAS CLIENT PER 15 MIN HOME CARE S5108 [facility] TRA[facility] 6 AREA AREA HOME AGENCY ON AGENCY ON CARE ESDRAS ESDRAS CLIENT PER 15 MIN COMPRE 06410 EILEEN ARELLANO AUDIOMETR 6 MONSTER MONSTER Y THRESHOLD EVAL SP RECOGNIJ TYMPANOME 21025 EILEEN ARELLANO TRY 6 MONSTER MONSTER MISC TX T1999 [facility] ITEMS & 6 AREA AREA SPL AGENCY ON AGENCY ON RETAIL ESDRAS ESDRAS PURCHASE NOC CONTINUOU E0601 SAMMYANIL CHRISTIANSON S 6 HOME HOME POSITIVE MEDICAL [...] ESDRAS ESDRAS CLIENT PER 15 MIN ECG 73602 [facility] PIRES ROUTINE 6 [facility] HOS[facility]OS[facility] ECG INC INC W/LEAST 12 LDS TRCG ONLY W/O I&R ECG 07777 [facility] ROUTINE 6 PHYSICIAN MAT ECG S GROUP W/LEAST 12 LDS I&R ONLY HOME CARE S5108 [facility] TRAINING 6 AREA AREA HOME AGENCY ON AGENCY ON CARE ESDRAS ESDRAS CLIENT [place] [address] [facility] PIRES THYROID 6 MEM HOSP MEM HOSP STIMULATI [place] [address] PRANAY PIRES FREE 6 MEM HOSP MEM HOSP THYROXINE INC INC COLLECTIO 69886 [facility] PIRES N VENOUS 6 [facility] BLOOD INC INC VENIPUNCT URE POLYSOM 38609 PRANAY PIRES 6/>YRS 6 [facility] SLEEP 4/> INC INC ADDL JESSIKA ATTND O2 CONC 1 E1390 SAMMY PRATHER 6 HOME HOME 85%/>02 MEDICAL MEDICAL CONC AT EQUIPME EQUIPME PRSC FLW RATE MISC [place] T1999 [facility] IT[facility]S & 6 AREA AREA SPL AGENCY ON AGENCY ON RETAIL ESDRAS ESDRAS PURCHASE NOC CONTINUOU E0601 SAMMY Rose 6 HOME HOME POSITIVE MEDICAL MEDICAL AIRWAY EQUIPME EQUIPME PRESSURE DEVICE IPRATROPI [id number] YOUR YOUR UM 6 PHARMACY PHARMACY BROMIDE [employer] INHAL NON-CP U DOSE PER MG COMPUTER- [id number] PRANAY PIRES AIDED 6 [facility] DETECTION INC INC SCREENING MAMMOGRAP HY ADMN SET A7005 YOUR YOUR W/SM VOL 6 PHARMACY PHARMACY NONFILTR [employer] NEBULIZR NON-DISPB L SCREENING G0202 PRANAY PIRES 6 [facility] MAMMOGRAP INC INC HY AUDIE INCL CAD WHEN PERFORMD PHRM Q0513 YOUR YOUR DISPENSIN 6 PHARMACY PHARMACY G FEE [employer] INHALATIO N RX; PER 30 DAYS [...] CARE ESDRAS ESDRAS CLIENT PER 15 [place] [facility] [place] T1999 [facility] & 6 [...] HOME DME NEB MEDICAL MEDICAL EQUIPME EQUIPME O2 CONC 1 E1390 SAMMY CHRISTIANSON DEL [...] CARE ESDRAS ESDARS CLIENT PER 15 MIN MISC [place] T1999 [facility] & 6 AREA AREA SPL AGENCY ON AGENCY ON RETAIL ESDRAS ESDRAS PURCHASE NOC CONTINUOU E0601 SAMMY CHRISTIANSON S 6 HOME HOME POSITIVE MEDICAL MEDICAL AIRWAY EQUIPME EQUIPME PRESSURE DEVICE COLLECTIO 24968 [facility] N VENOUS 6 Y Y BLOOD [facility] [place] [address] [facility] 6 Y Y [facility] HOME CARE S5108 [facility] TRAINING 6 AREA AREA HOME AGENCY ON AGENCY ON CARE ESDRAS ESDRAS CLIENT PER 15 MIN BLOOD 04408 [facility] COUNT 6 Y Y [facility] AUTOMATED HOME CARE S5108 [facility] TRAINING 6 [...] CARE ESDRAS ESDRAS CLIENT PER 15 MIN COMPREHEN 39040 [facility] P[facility]ES SIVE 6 [facility] METABOLIC INC INC PANEL BLOOD 83525 PR[facility] PIRES COUNT 6 [facility] HOS[facility] MEM [...] ESDRAS ESDRAS CLIENT PER 15 MIN ECHO 57003 [facility] TTHRC R-T 6 MEDICAL 2D SERV W/WOM-MOD FOUNDATIO E COMPL N SPEC&[place] [address] [facility] MAXILLOFA 6 MEDICAL CIAL W/O IMAGING CONTRAST ASS MATERIAL CT THORAX 25893 [facility] W/O 6 MEDICAL CONTRAST IMAGING MATERIAL ASS HOME CARE S5108 [facility] TRAINING 6 [...] HOME HOME 85%/>02 MEDICAL MEDICAL CONC AT EQUIPAZ EQUIPAZ PRSC FLW RATE HOME CARE S5108 [facility] TRA[facility]ING 6 AREA AREA HOME AGENCY ON AGENCY ON CARE ESDRAS ESDRAS CLIENT PER 15 MIN HOME CARE S5108 [facility] 6 AREA AREA HOME AGENCY ON AGENCY ON CARE ESDRAS ESDRAS CLIENT PER 15 MIN DEBRIDEME 41614 [place] TESSIE NT NAIL 6 PLACIDO AVTAR ANY METHOD 6/> RADEX 54808 [facility] HAND 2 6 MEDICAL VIEWS IMAGING ASS RADEX 08907 [facility] ABDOMEN 1 6 Y Y HOSPITAL [facility] ANTEROPOS TERIOR VIEW IMMUNOASS 81492 [facility] AY 6 Y Y ANALYTE [facility] QUAL/SEMI QUAL MULTIPLE STEP CYANOCOBA 33583 [facility] PASHA 6 Y Y VITAMIN [facility] HOSPITAL B-12 [place] [address] [facility] FERRITIN 6 Y Y HOSPITAL [facility] HOME CARE S5108 [facility] TRA[facility]ING 6 AREA AREA HOME AGENCY ON AGENCY ON CARE ESDRAS ESDR[place] CLIENT [place] 15 [place] [address] [facility] FOLIC 6 Y Y ACID [facility] SERUM COMPREHEN 12764 [facility] SIVE 6 Y Y METABOLIC [facility] PANEL HST G0399 PRANAY PIRES W/TYPE 6 [facility] III INC INC PRTBLE MON UNATTENDE D MIN 4 CH RADEX 27886 PRANA[facility] IPRES HAND 6 [facility] MINIMUM 3 INC INC VIEWS COLLECTIO 40626 [facility] UNIVERS N VENOUS 6 Y Y BLOOD [facility] VENIPUNCT URE C-REACTIV 17731 [facility] UNIVERS E PROTEIN 6 Y Y HOSPITAL [facility] IRON 11829 [facility] BINDING 6 Y Y CAPACITY [facility] BLOOD 40388 [facility] COUNT 6 Y Y COMPLETE [facility] AUTOMATED CONTINUOU E0601 SAMMY CHRISTIANSON S 6 HOME [...] ESDRAS ESDRAS CLIENT PER 15 MIN ECG 06704 PRANAY PRANAY ROUTINE 6 [facility] ECG INC INC W/LEAST 12 LDS TRCG ONLY W/O I&R PULMONARY 14364 [place] [facility] STRESS 6 MEDICAL JAM TESTING SERV SIMPLE FOUNDATIO N GAS 28886 PRANAY PIRES DILUT/WAS 6 [facility] HOUT LUNG INC INC VOL W/WO DISTRIB VENT&[place] [address] [facility] DIFFUSING 6 MEDICAL JAM CAPACITY SERV FOUNDATIO N PRESSURIZ 30093 PRANAY PIRES ED/NONPRE 6 [facility] SSURIZED INC INC INHALATIO N TREATMENT BRNCDILAT 86988 [facility] RSPSE 6 MEDICAL JAM SPMTRY SERV PRE&POST- FOUNDATIO BRNCDILAT N ADMN ECG 94940 [facility] KALIN ROUTINE 6 PHYSICIAN MAT ECG S GROUP W/LEAST 12 LDS I&R ONLY HOME CARE S5108 [facility] TRA[facility]ING 6 [...] HOME HOME 85%/>02 MEDICAL MEDICAL CONC AT [facility] PRSC FLW RATE HOME CARE S5108 [facility] [...] ESDRAS ESDRAS CLIENT PER 15 MIN ECG 60989 PRANAY PIRSE ROUTINE 6 [facility]OS[facility] ECG INC INC W/LEAST 12 LDS TRCG ONLY W/O I&R HOME CARE S5108 [facility] TRA[facility] 6 AREA AREA HOME AGENCY ON AGENCY ON CARE ESDRAS ESDRAS CLIENT PER 15 MIN ECG 87683 [facility] ROUTINE 6 PHYSICIAN MAT ECG S GROUP W/LEAST 12 LDS I&R ONLY HOME CARE S5108 [facility] TRA[facility]ING 6 [...] CARE ESDRAS ESDRAS CLIENT PER 15 MIN DUP-SCAN 85601 [facility] ARTL CURRY 6 MEDICAL ABDL/PEL/ IMAGING SCROT&/[place] [address] [facility] ALL RETROPERI 6 MEDICAL TONEAL IMAGING REAL TIME ASS W/IMAGE LIMITED HOME CARE S5108 [facility] TRA[facility]ING 6 AREA AREA HOME AGENCY ON AGENCY ON CARE ESDRAS ESDRAS CLIENT PER 15 MIN HOME CARE S5108 [facility] TRA[facility]ING 6 AREA AREA HOME AGENCY ON AGENCY ON CARE ESDRAS ESDRAS CLIENT PER 15 MIN HOME CARE S5108 [facility] TRA[facility] 6 AREA AREA HOME AGENCY ON AGENCY ON CARE ESDRAS ESDRAS CLIENT PER 15 MIN HOSPITAL G0378 PRANAY PIRES OBSERVATI 6 [facility] ON INC INC SERVICE PER HOUR NONINVASI 08759 PRANAY PIRES VE 6 [facility] EAR/PULSE INC [place] [address] PRANAY PIRES TROPONIN 6 MEM HOSP MEM HOSP QUANTITAT INC INC MIGUE SBSQ 77202 [facility] 6 PHYSICIAN MAT CARE/DAY S GROUP 25 MINUTES HOSPITAL G0378 PRANAY PIRES OBSERVATI 6 [facility] ON INC INC SERVICE PER HOUR COLLECTIO 24095 PRANAY PIRES N VENOUS 6 [facility]OS[facility] BLOOD INC INC VENIPUNCT URE CREATINE 08340 PRANAY PIRES KINASE 6 [facility] TOTAL INC INC SBSQ 18773 [facility] PHYSICIAN [place] ON S GROUP CARE/DAY 15 MINUTES CREATINE 48329 PRANAY PIRES KINASE MB 6 [facility]OS[facility] FRACTION INC INC ONLY CREATINE 79124 PRANAY PIRES KINASE MB 6 [facility] FRACTION INC INC ONLY INITIAL 01064 [facility] 6 PHYSICIAN MAT CARE/DAY S GROUP 70 MINUTES ECG 00139 PRANAY PIRES ROUTINE 6 [facility]OS[facility] ECG INC INC W/LEAST 12 LDS TRCG ONLY W/O I&R CREATINE 41342 PRANAY PIRES KINASE 6 [facility]OS[facility] TOTAL INC INC HOME CARE S5108 [facility] 6 AREA AREA HOME AGENCY ON AGENCY ON CARE ESDRAS ESDRAS CLIENT PER 15 MIN COMPREHEN 44488 PRANAY PIRES SIVE 6 MEM HOS[facility] MEM HOSP METABOLIC INC INC [facility] G0378 PRANAY PIRES OBSERVATI 6 [facility]OS[facility] ON INC INC SERVICE PER HOUR RADIOLOGI 51536 PRANAY PIRES C 6 MEM HOS[facility] HOS[facility] EXAMINATI INC INC ON CHEST SINGLE VIEW FRONTAL ECG 81432 PRANAY GONSALES JR ROUTINE 6 [facility] W/LEAST P 12 LDS I&[place] [address] PRANAY PIRES TROPONIN 6 MEM HOS[facility] MEM HOSP QUANTITAT INC INC MIGUE BLOOD 27947 PRANAY PIRES COUNT 6 MEM HOS[facility] MEM HOSP COMPLETE INC INC AUTO&AUTO DIFRNTL WBC INITIAL 05808 [facility] OBSERVATI 6 PHYSICIAN [place] ON S GROUP CARE/DAY 50 MINUTES NONINVASI 82255 PRANAY PIRES VE 6 MEM [facility]OS[facility] HOS[facility] EAR/PULSE INC INC OXIMETRY SINGLE DETER HOME CARE S5108 [facility] TRAINING 6 [...] MEDICAL AIRWAY EQUIPME EQUIPME PRESSURE DEVICE DESTRUCTI 05241 CHIDI KURTZ ON BENIGN 6 PLACIDO AVTAR LESIONS 15/> HOME CARE S5108 [facility] TRA[facility] 6 AREA AREA HOME AGENCY ON AGENCY ON CARE ESDRAS ESDRAS CLIENT PER 15 MIN HOME CARE S5108 [facility] TRA[facility] 6 AREA AREA HOME AGENCY ON AGENCY ON CARE ESRDAS ESDRAS CLIENT PER 15 MIN HOME CARE [...] CLIENT PER 15 MIN CONTINUOU E0601 SAMMY SEVILLARELL S 6 HOME HOME POSITIVE MEDICAL MEDICAL AIRWAY EQUIPME EQUIPME PRESSURE DEVICE O2 CONC 1 E1390 SAMMY SAMMYANIL HANSON PORT 6 HOME HOME 85%/>02 MEDICAL MEDICAL CONC AT EQUIPME EQUIPME PRSC FLW RATE CONTINUOU E0601 SAMMY CHRISTIANSON S 6 HOME HOME POSITIVE MEDICAL MEDICAL AIRWAY EQUIP[place] [address] PRANAY PIRES THYROID 6 MEM H[facility]OS[facility] STIMULATI INC INC NG HORMONE TSH COMPREHEN 57509 PRANAY PIRES SIVE 6 [facility]OS[facility] METABOLIC INC INC PANEL CALCIUM 34248 PRANAY PIRES IONIZED 6 [facility] INC INC COLLECTIO 90543 PRANAY PIRES N VENOUS 6 MEM H[facility] [place] [address] PRANAY PIRES PARATHORM 6 MEM HOSP [facility] [place] [address] PRANAY PIRES THYROXINE 6 [facility] TOTAL INC INC US SOFT 68452 PRANAY BILLY TISSUE 6 [facility] HEAD & INC NECK REAL TIME IMGE DOCM LIPID 30344 PRANAY PIRES PANEL 6 MEM HOS[facility] INC INC BLOOD 07858 PRANAY BILLY COUNT 6 MEM HOSP COMPLETE INC AUTO&AUTO DIFRNTL WBC FINAL RPT G[address]/MRI 6 MEDICAL FREDDY CHEST/NCK IMAGING /U/S NO ASS THR NOD<1.0 CM O2 CONC 1 E1390 SAMMY CHRISTIANSON DEL PORT 6 HOME HOME 85%/>02 MEDICAL MEDICAL CONC AT EQUIPME EQUIPME PRSC FLW RATE CONTINUOU E0601 SAMMY CHRISTIANSON S 6 HOME HOME POSITIVE MEDICAL MEDICAL AIRWAY EQUIPME EQUIPME PRESSURE DEVICE DUP-SCAN 56828 PRANAY PIRES XTR VEINS 6 [facility] INC INC UNILATERA L/LIMITED STUDY THERAPEUT 81287 PRANAY PIRES IC 6 [facility] PROPHYLAC INC INC TIC/DX INJECTION SUBQ/IM PREHTN/HT G8952 VIOLET HSIEH N BP DOC 6 PHYSICIAN U SERA INDCD F/U S, PLLC NOT DOC RSN NOT GIVN O2 CONC 1 E1390 SAMMY CHRISTIANSON DEL PORT 6 HOME HOME 85%/>02 MEDICAL MEDICAL CONC AT EQUIPME EQUIPME PRSC FLW RATE HUMDIFIR E0562 SAMMY CHRISTIANSON HEATED 6 HOME HOME USED MEDICAL MEDICAL W/POS EQUIPME EQUIPME ARWAY PRESSURE DEVICE TUBING A7037 SAMMY CHRISTIANSON USED WITH 6 HOME HOME POSITIVE MEDICAL MEDICAL AIRWAY EQUIPME EQUIPME PRESSURE DEVICE CONTINUOU E0601 SAMMY CHRISTIANSON S 6 HOME HOME POSITIVE MEDICAL MEDICAL AIRWAY EQUIPME EQUIPME PRESSURE DEVICE NASL A7034 SAMMYANIL CHRISTIANSON INTRFCE 6 HOME HOME POS ARWAY MEDICAL MEDICAL PRSS EQUIPME EQUIPME DEVC W/WO HEAD STRAP HEADGEAR A7035 SAMMY CHRISTIANSON USED 6 HOME HOME W/POSITIV MEDICAL MEDICAL E AIRWAY EQUIPME EQUIPME PRESSURE DEVICE FILTER A7038 SAMMYANIL CHRISTIANSON DISPBL 6 HOME HOME USED MEDICAL MEDICAL W/POS EQUIPME EQUIPME ARWAY PRESSURE DEVICE FILTER A7039 SAMMYANIL CHRISTIANSON NON 6 HOME HOME DISPBL MEDICAL MEDICAL USED EQUIPME EQUIPME W/POS ARWAY PRESS DEVICE THER 05763 ALEXANDER MUNOZ PROPH/DX 6 [facility] NJX IV HOSPITAL HOSPITAL PUSH SINGLE/1S T SBST/DRUG COLLECTIO 65914 ALEXANDER MUNOZ N VENOUS 6 [facility] BLOOD [facility] [place] [address] ALEXANDER MUNOZ INFUSION 6 [facility] HYDRATION [facility] HOSPITAL EACH ADDITIONA L HOUR COMPREHEN 38676 ALEXANDER MUNOZ SIVE 6 [facility] METABOLIC [facility] HOSPITAL PANEL URNLS DIP 83710 ALEXANDER MUNOZ 6 [facility] STICK/TAB HOSPITAL HOSPITAL LET REAGENT AUTO MICROSCOP Y BLOOD 66596 ALEXANDER MUNOZ COUNT 6 [facility] AUTO&AUTO DIFRNTL WBC O2 CONC 1 E1390 SAMMY SEVILLARELL DEL PORT 5 HOME HOME 85%/>02 MEDICAL MEDICAL CONC AT EQUIPME EQUIPME PRSC FLW RATE POLYSOM 05422 ANNAMARIE ALMAGUER ALMAGUER ANNAMARIE 6/>YRS 5 MD SLEEP 4/> CONSULTIN ADDL G SRV JESSIKA ATTND POLYSOM 15712 ALEXANDER MUNOZ 6/>YRS 5 [facility] SLEEP 4/> HOSPITAL HOSPITAL ADDL JESSIKA ATTND CALCIUM 81953 PRANAY PIRES IONIZED 5 [facility] INC INC COLLECTIO 20293 PRANAY PIRES N VENOUS 5 [facility] BLOOD INC INC VENIPUNCT URE PARATHYRO 31845 PRANAY PIRES ID PLANAR 5 [facility] HOSP IMAGING INC INC TECHNETIU A9500 PRANAY PIRES M TC-99M 5 [facility] SESTAMIBI INC INC DX PER STUDY DOSE CALCIUM 77712 PRANAY PIRES TOTAL 5 [facility] INC INC O2 CONC 1 E1390 SAMMY SEVILLARELL DEL PORT 5 HOME HOME 85%/>02 MEDICAL MEDICAL CONC AT EQUIPME EQUIPME PRSC FLW RATE O2 CONC 1 E1390 SAMMY SEVILLARELL DEL PORT 5 HOME HOME 85%/>02 MEDICAL MEDICAL CONC AT EQUIPME EQUIPME PRSC FLW RATE US SOFT 01428 PRANAY PIRES TISSUE 5 [facility] HEAD & INC INC NECK REAL TIME IMGE DOCM CATH PLMT 50786 [facility] & 5 [facility] MEDICAL W/NJX & G ANGIO IMG S&I INFUSION J7030 ALEXANDER MUNOZ NORMAL 5 [facility] SOLUTION 1000 CC COMPREHEN 31683 ALEXANDER MUNOZ SIVE 5 [facility] HOSPITAL PANEL COLLECTIO 77443 ALEXANDER MUNOZ N VENOUS 5 [facility] [address] ALEXANDER MUNOZ HEAD/BRAI 5 [facility] W/O HOSPITAL [place] [address] ALEXANDER MUNOZ THYROID 5 [facility] NG HORMONE TSH NONCOVERE A9270 ALEXANDER MUNOZ D ITEM OR 5 [facility] ECG 40283 ALEXANDER MUNOZ ROUTINE 5 [facility] HOSPITAL W/LEAST 12 LDS TRCG ONLY W/O I&R ECG 70925 [facility] II ROUTINE 5 CH[facility]IS THO ECG EMERGENCY W/LEAST PHYS 12 LDS I&R ONLY BLOOD 60910 ALEXANDER MUNOZ COUNT 5 [facility] AUTO&[place] [address] ALEXANDER MUNOZ TROPONIN 5 [facility] MIGUE O2 CONC E1390 SAMMY CHRISTIANSON VALENTIN PORT 5 HOME HOME 85%/>02 MEDICAL MEDICAL CONC AT EQUIPME EQUIPME PRSC FLW RATE COMMODE E0163 SAMMY CHRISTIANSON CHAIR 5 HOME HOME MOBILE OR MEDICAL MEDICAL EQUIPME EQUIPME STATIONAR Y W/FIXED ARMS O2 CONC E1390 SAMMY CHRISTIANSON DEL PORT 5 HOME HOME 85%/>02 MEDICAL MEDICAL CONC AT EQUIPME EQUIPME PRSC FLW RATE O2 CONC E1390 SAMMY CHRISTIANSON DEL PORT 5 HOME HOME 85%/>02 MEDICAL MEDICAL CONC AT EQUIPME EQUIPME PRSC FLW RATE O2 CONC E1390 SAMMY CHRISTIANSON DEL PORT 5 HOME HOME 85%/>02 MEDICAL MEDICAL CONC AT EQUIPME EQUIPME PRSC FLW RATE BLOOD 70116 ALEXANDER MUNOZ COUNT 5 [facility] HOSPITAL AUTO&[place] [address] ALEXANDER MUNOZ HEAD/BRAI 5 [facility] W/O HOSPITAL HOSPITAL CONTRAST MATERIAL COLLECTIO 61679 ALEXANDER MUNOZ N VENOUS 5 [facility] HOSPITAL VENIPUNCT URE COMPREHEN 20791 ALEXANDER MUNOZ SIVE 5 [facility] HOSPITAL PANEL THER 71931 ALEXANDER MUNOZ PROPH/DX 5 [facility] HOSPITAL PUSH SINGLE/1S T SBST/DRUG INJECTION J2405 ALEXANDER MUNOZ 5 [facility] ON HCL PER 1 MG NONCOVERE A9270 ALEXANDER MUNOZ D ITEM OR 5 [facility] RADEX 71724 ALEXANDER MUNOZ HAND 5 [place] [address] HOSPITAL HOSPITAL VIEWS O2 CONC 1 E1390 SAMMY SAMMY DEL PORT 5 HOME HOME 85%/>02 MEDICAL MEDICAL CONC AT EQUIPME EQUIPME PRSC FLW RATE BLOOD 43377 ALEXANDER MUNOZ COUNT 5 [facility] HOSPITAL AUTO&AUTO DIFRNTL WBC COMPREHEN 24047 ALEXANDER UMNOZ SIVE 5 [facility] HOSPITAL PANEL COLLECTIO 50071 ALEXANDER MUNOZ N VENOUS 5 [facility] HOSPITAL VENIPUNCT URE RADIOLOGI 34349 ALEXANDER MUNOZ C 5 [facility] HOSPITAL ON KNEE 1/2 VIEWS O2 CONC 1 E1390 SAMMY SAMMY DEL PORT 5 HOME HOME 85%/>02 MEDICAL MEDICAL CONC AT EQUIPME EQUIPME PRSC FLW RATE O2 CONC E1390 SAMMY SAMMY DEL PORT 5 HOME HOME 85%/>02 MEDICAL MEDICAL CONC AT EQUIPME EQUIPME PRSC FLW RATE CUL BACT 68251 ALEXANDER OLIVAJOCELYNPAYTON XCPT 5 [facility] HOSPITAL BLOOD/STO OL AEROBIC ISOL CUL BACT 99273 ALEXANDER OLIVAJOCELYNPAYTON AEROBIC 5 [facility] METHS DEFINITIV E EA ISOL ECG 52309 [facility] ROUTINE 5 [facility] ECG EMERGENCY W/LEAST PHYS 12 LDS I&R ONLY BLOOD 02863 [facility] COUNT 5 [facility] HOSPITAL AUTO&[place] [address] [facility] TROPONIN 5 [facility] MIGUE CULTURE 56502 [facility] BACTERIAL [address] [place] [address] AEROBIC W/ID ISOLATES SUSCEPTIB 89087 [facility] LTY STDY 5 [facility] IAL MICRO/AGA R DILUTJ SMR PRIM 07320 [facility] SRC [address] [place] [address]/GIEM [facility] SA STAIN BCT FUNGI/ORTIZ L RADIOLOGI 39390 [facility] C [address] [place] [address] ON CHEST SINGLE VIEW FRONTAL COLLECTIO 99798 [facility] N VENOUS 5 [facility] [place] [address] [facility] INFUSION [address] [place] [address] HOSPITAL INITIAL 31 MIN-1 HOUR COMPREHEN 81907 [facility] SIVE [address] [place] [address] HOSPITAL PANEL CREATINE 19522 [facility] KINASE MB 5 [facility] HOSPITAL ONLY ECG 28863 [facility] ROUTINE 5 [facility] HOSPITAL W/LEAST 12 LDS TRCG ONLY W/O I&R CREATINE 17006 [facility] KINASE [address] [place] [address] HOSPITAL XTRNL ECG 19824 ANNAMARIE ALMAGUER ALMAGUER ANNAMARIE 5 MD CONTINUOU CONSULTIN S RHYTHM G SRV W/I&R UP TO 48 HRS CV STRS 33666 ANNAMARIE ALMAGUER ALMAGUER ANNAMARIE TST 5 MD XERS&/OR CONSULTIN RX CONT G SRV ECG I&R ONLY NONINVASI 92168 NARKA ALEXANDER VE [address] [place] [address] EAR/PULSE [facility] HOSPITAL OXIMETRY OVERNIGHT MONITOR TECHNETIU A9500 [place] MUNOZ M TC-99M 5 [facility] DX PER STUDY DOSE CV STRS 88699 ALEXANDER MUNOZ TST 5 [facility]&/OR [facility] HOSPITAL RX CONT ECG TRCG ONLY MYOCARDIA 83064 ALEXANDER MUNOZ L SPECT 5 [facility] STUDIES XTRNL ECG 97188 ANNAMARIE ALMAGUER ALMAGUER ANNAMARIE & 48 HR 5 MD RECORDING CONSULTIN G SRV NONINVASI 19572 ANNAMARIE ALMAGUER ALMAGUER ANNAMARIE VE 5 MD EAR/PULSE CONSULTIN OXIMETRY G SRV OVERNIGHT MONITOR DUPLEX 81982 ANNAMARIE ALMAGUER ALMAGUER ANNAMARIE SCAN 5 MD EXTRACRAN CONSULTIN IAL ART G SRV COMPL BI STUDY ECHO 20167 ANNAMARIE ALMAGUER ALMAGUER ANNAMARIE TTHRC R-T 5 MD 2D CONSULTIN W/WOM-MOD G SRV E COMPL SPEC&COLR D CULTURE 44583 LAB ERIC LAB ERIC BCT 5 [facility] ISOL&PRSM [employer] [facility] PTV ID ISOLATE EA URINE CUL BACT 14143 LAB ER[facility] LAB ERIC AEROBIC 5 [facility] ADDL [facility] [facility] METHS DEFINITIV E EA ISOL PROTEIN 81691 LAB ERIC LAB ERIC TOTAL 5 [facility] XCPT [facility] [facility] REFRACTOM ETRY URINE GLUCOSE 70122 LAB ERIC LAB ERIC QUANTITAT 5 [facility] MIGUE BLOOD [facility] XCPT REAGENT STRIP SUSCEPTIB 10852 LAB ERIC LAB ERIC LTY STDY 5 [facility] ANTIMICRB [facility] IAL [place] [address] LAB ERIC LAB ERIC PHOSPHATA 5 [facility] BR[facility] SE [facility] ALKALINE POTASSIUM 78839 LAB ERIC LAB ERIC SERUM 5 BRIS[facility] BRISSA PLASMA/WH [facility] OLE BLOOD BLOOD 66735 LAB ERIC LAB ERIC COUNT 5 [facility] RETICULOC [facility] YTE AUTOMATED PROTEIN 76859 LAB ERIC LAB ERIC XCPT 5 [facility]SA [facility] REFRACTOM [facility] [employer] ETRY SERUM PLASMA/WH L BLD SODIUM 17634 LAB ERIC LAB ERIC SERUM 5 [facility] PLASMA OR [facility]INGS WHOLE BLOOD TRANSFERA 98371 LAB ERIC LAB ERIC SE 5 [facility] ASPARTATE [place] [address] LAB ERIC LAB ERIC UREA 5 [facility] NITROGEN [facility]INGS HOLDINGS QUANTITAT MIGUE CREATININ 98542 LAB ERIC LAB ERIC E OTHER 5 [facility] BRISSA SOURCE [facility] HOLDINGS CT LUMBAR [address] SANDRA SPINE 5 [facility] W/O MELLY MELLY CONTRAST MATERIAL ALBUMIN 81769 LAB ERIC LAB ERIC SERUM 5 BRISSA BRISSA PLASMA/WH [facility] HOLDINGS OLE BLOOD GLUCOSE 05816 LAB ERIC LAB ERIC QUANTITAT 5 BRISSA BRISSA MIGUE BLOOD [employer] XCPT REAGENT STRIP PROTEIN 33515 LAB ERIC LAB ERIC XCPT 5 BRISSA BRISSA REFRACTOM HOLDINGS HOLDINGS ETRY SERUM PLASMA/WH L BLD SODIUM 66315 LAB ERIC LAB ERIC SERUM 5 BRISSA BRISSA PLASMA OR [employer]INGS HOLDINGS WHOLE BLOOD POTASSIUM 64235 LAB ERIC LAB ERIC SERUM 5 BRISSA BRISSA PLASMA/[place] [address] LAB ERIC LAB ERIC PHOSPHATA 5 BRISSA BRISSA SE [facility]INGS HOLDINGS ALKALINE 25 18391 LAB ERIC LAB ERIC HYDROXY 5 BRISSA BRISSA INCLUDES HOLDINGS HOLDINGS FRACTIONS IF PERFORMED CHLORIDE 97425 LAB ERIC LAB ERIC BLD 5 BRISSA BRISSA [employer]INGS HOLDINGS CREATININ 49846 LAB ERIC LAB ERIC E BLOOD 5 [facility] [place] [address] LAB ERIC LAB ERIC UREA 5 BRISSA BRISSA NITROGEN HOLDINGS HOLDINGS QUANTITAT MIGUE TRANSFERA 62455 LAB ERIC LAB ERIC SE 5 BRISSA BRISSA ASPARTATE HOLDINGS HOLDINGS AMINO AST SGOT BILIRUBIN 23923 LAB ERIC LAB ERIC TOTAL 5 BRISSA BRISSA [employer]INGS HOLDINGS CALCIUM 54612 LAB ERIC LAB ERIC TOTAL 5 BRISSA BRISSA [employer]INGS HOLDINGS COLLECTIO 42871 PADMINI Hanna VENOUS 5 CLINIC BLOOD VENIPUNCT URE STRAPPING 90695 [facility] [place] 5 [facility]IS HAND/FING EMERGENCY ER PHYS RADEX 77725 [place] HAND 5 [facility] 3 HOSPITAL HOSPITAL VIEWS RADEX 37765 [place] RIBS 5 [facility] [place]P[facility] L [address] [place] [address] ALEXANDER MUNOZ CERVICAL 5 [facility] SPINE W/O HOSPITAL HOSPITAL CONTRAST MATERIAL RADEX 43274 [place] RACHEL RIBS UNI 5 RADIOLOGY RHO W/POSTERO ANT CH MINIMUM [address] [place] [address] ALEXANDER MUNOZ HEAD/BRAI 5 [facility] N W/O HOSPITAL HOSPITAL CONTRAST MATERIAL RADIOLOGI 39940 ALEXANDER MUNOZ C 5 [facility] ON CHEST SINGLE VIEW FRONTAL RADIOLOGI 24435 ALEXANDER NG C [address] [place] [address] ON PELVIS 1/[address] [place] [address] ALEXANDER MUNOZ MAXILLOFA 5 [facility] CIAL W/O HOSPITAL HOSPITAL CONTRAST MATERIAL Encounters Encounter Start End Date Code Location Performer Type Date OFFICE 50907 [facility] OUTPATIEN 7 7 PHYSICIAN T VISIT S GROUP 15 MINUTES OFFICE 99254 [facility] OUTPATIEN 7 7 PHYSICIAN T VISIT S GROUP 15 MINUTES [facility]OSP[facility] - OTHER 7 7 [facility] OFFICE 11409 [facility] OUTPATIEN 7 7 PHYSICIAN T VISIT S GROUP 15 MINUTES [facility] - 7 7 [facility] T OFFICE 26247 [facility] OUTPATIEN 7 7 PHYSICIAN T VISIT S GROUP 25 MINUTES [facility] - 7 7 [facility] OFFICE 03671 [facility] OUTPATIEN 7 7 PHYSICIAN T VISIT GROUP 15 MINUTES [facility] OTHER 6 6 [facility] OFFICE 58946 [facility] OUTPATIEN 6 6 PHYSICIAN MAT T VISIT S GROUP 25 MINUTES [facility]OSPITAL [facility] - 6 6 [facility] INC T OFFICE 68858 [facility] OUTPATIEN 6 6 PHYSICIAN MAT T VISIT S GROUP 25 MINUTES [facility]OSP[facility] - 6 6 [facility] INC T OFFICE 46008 [facility] OUTPATIEN 6 6 PHYSICIAN MONSTER T VISIT S GROUP 10 MINUTES [facility]OSPITAL PR[facility] - 6 6 [facility] BY [facility] PRANAY [facility] 6 6 [facility] OUTPATIEN [facility] T OFFICE 40197 [facility] OUTPATIEN 6 6 PHYSICIAN MONSTER T VISIT S GROUP 10 MINUT[facility] HOSPITAL PRANAY [facility] 6 6 [facility] OUTPATIEN [facility] T OFFICE 79370 [facility] MALISSA MAR OUTPATIEN 6 6 PHYSICIAN T NEW 30 S GROUP MINUTES HOSPITAL UNIVERSIT - 6 6 Y OUTTWO [facility] T OFFICE 67191 [facility] OUTPATIEN 6 6 PHYSICIAN MONSTER T VISIT S GROUP 10 MINUTES HOSPITAL PRANAY - OTHER 6 6 [facility] PRANAY - 6 6 [facility] OUTPATIEN [facility] T OFFICE 67955 [facility] OUTPATIEN 6 6 PHYSICIAN EMERY T VISIT S GROUP [address]ES [address] PEARCE OUTPATIEN 6 6 MEDICAL JAM T VISIT SERV 25 FOUNDATIO MINUTES [facility] UNIVERSIT - 6 6 Y OUTTWO [facility] T OFFICE 47001 [facility] OUTPATIEN 6 6 PHYSICIAN MONSTER T VISIT S GROUP 10 MINUTES OFFICE 70357 [facility] ISMA TOD OUTPATIEN 6 6 PHYSICIAN T VISIT S GROUP 15 MINUTES HOSPITAL PRANAY - 6 6 [facility] OUTPATIEN [facility] T OFFICE 46136 [facility] OUTPATIEN 6 6 PHYSICIAN MAT T VISIT S GROUP 25 MINUTES OFFICE 54070 [place] [facility] OUTPATIEN 6 6 MEDICAL JAM T NEW 45 SERV MINUTES FOUNDATIO N OFFICE 06891 [facility] OUTPATIEN 6 6 PHYSICIAN MAT T VISIT S GROUP 25 MINUTES HOSPITAL PRANAY - 6 6 [facility] OUTPATIEN INC T HOSPITAL PRANAY - 6 6 [facility] OUTPATIEN [facility] T EMERGENCY 80115 [facility]SI[facility] DEPT 6 6 PHYSICIAN U SERA VISIT [facility] HIGH SEVERITY& THREAT FUNJ EMERGENCY 63398 [facility] T VISIT HIGH/URGE NT SEVERITY [facility]OSPITAL [facility] - 6 6 [facility] OUTPATIEN INC T OFFICE 21819 [facility] TESSIE OUTPATIEN 6 6 PLACIDO AVTAR T NEW 30 MINUTES OFFICE 06154 [facility] OUTPATIEN 6 6 PHYSICIAN EMERY T VISIT S GROUP 15 MINUTES OFFICE 72715 [facility] OUTPATIEN 6 6 PHYSICIAN EMERY T NEW 45 S GROUP MINUTES [facility]OSPITAL PR[facility]Y - 6 6 [facility] OUTPATIEN INC T HOSPITAL PRANAY - 6 6 [facility] OUTPATIEN [facility] T HOSPITAL PRANAY [facility] 6 6 [facility] OUTPATIEN [facility] T EMERGENCY 11033 [facility] 6 6 [facility] T VISIT LOW/MODER SEVERITY EMERGENCY 79278 VIOLET HSIEH 6 6 PHYSICIAN U [facility], [facility] T VISIT MODERATE SEVERITY [facility] [address] [facility] EMERGENCY [id number] [place] 6 6 [facility] T VISIT HIGH/URGE NT SEVERITY EMERGENCY 14482 [facility] DEPT 6 6 [facility] SERA VISIT EMERGENCY HIGH PHYS [facility]VERITY& THREAT [facility] [place] - [address] [facility] PRANAY [facility] 5 5 [facility] PRANA[facility] - 5 5 [facility] [id number] [facility] 5 5 [facility] 45 MEDICAL MINUTES G [facility] [id number] [facility] T VISIT HIGH/URGE NT SEVERITY EMERGENCY 76968 [facility] DEPT 5 5 CH[facility]IS THO VISIT EMERGENCY HIGH PHYS SEVERITY& THREAT [facility] [place] [facility] [address] [facility] EMERGENCY [id number] [facility] 5 [facility] T VISIT [facility]IGH/URGE NT SEVERITY [facility] [place] [facility] [address] [facility] [address] [facility] [address] [facility] [address] [facility] DEPT 5 5 [facility]IS [facility] VISIT EMERGENCY HIGH PHYS SEVERITY& THREAT [facility] EMERGENCY 48118 [place] 5 5 [facility] T VISIT [facility]IGH/URGE NT SEVERITY [facility] [address] [facility] 5 5 [facility] OFFICE [id number] [facility] [place] [id number] [facility] T VISIT 25 MINUTES EMERGENCY 73275 [facility] DEPT 5 5 [facility] VISIT EMERGENCY HIGH PHYS SEVERITY& THREAT FUN EMERGENCY [id number] T VISIT MODERATE SEVERITY [facility] [address] T
--- OUTSIDE RECORDS SUMMARY | 2016-10-24 16:36 | External Medical Summary Rpt ---
Author Author , Organization [employer] Address Unknown Phone Unavailable Care Team Providers Care Board Mixer Tender Name Role Phone [facility] Unavailable Unavailable ON ESDRAS, [facility] ON ESDRAS [facility] Unavailable Unavailable ON ESDRAS, [facility] ON ESDRAS HORNER, HORNER Unavailable Unavailable HORNER ALL, HORNER ALL Unavailable Unavailable HORNER FLAKITA, HORNER FLAKITA Unavailable Unavailable [facility] Unavailable Unavailable HOSPITAL, [facility] TESSIE AVTAR, TESSIE Unavailable Unavailable AVTAR [facility] Unavailable Unavailable [facility] GARCIA, GARCIA Unavailable Unavailable GARCIA EMERY, GARCIA Unavailable Unavailable EMERY [facility], Unavailable Unavailable [facility] ALMAGUER ANNAMARIE, ALMAGUER ANNAMARIE Unavailable Unavailable CHACHO FREDDY, Unavailable Unavailable CHACHO FREDDY [facility] Unavailable Unavailable CENTER, [facility] MC II THO, MC II Unavailable Unavailable THO FALLIS PLACIDO, FALLIS Unavailable Unavailable PLACIDO [facility] Unavailable Unavailable TRANSPORTATION SER, [facility] FRYMAN, FRYMAN Unavailable Unavailable YOLANDA LEIGHTON, YOLANDA Unavailable Unavailable LEIGHTON RACHEL RHO, RACHEL Unavailable Unavailable RHO [facility] Un[facility] Un[facility], [facility], Unavailable Unavailable [facility], Unavailable Unavailable [facility] MARLOW CAROLA, MARLOW CAROLA Unavailable Unavailable [facility] Unavailable [facility]available MEDICAL G, [facility] Unavailable Unavailable [facility], [facility] Unavailable Unavailable [facility], [facility] ARELLANO, ARELLANO Unavailable Unavailable ARELLANO MONSTER, ARELLANO Unavailable Unavailable MONSTER ARELLANO MONSTER, ARELLANO Unavailable Unavailable MONSTER DRU JR DWI, DRU Unavailable Unavailable JR DWI PEARCE JAM, Unavailable Unavailable PEARCE JAM [facility] Unavailable Unavailable AMBULANCE SE, [facility] Unavailable Unavailable AMBULANCE SE, [facility], [place] Unavailable [...] EQUIPME SOTINGEANU SERA, Unavailable Unavailable SOTINGEANU SERA [facility] Unavailable Unavailable EMERGENCY PHYS, [facility] Unavailable Unavailable MELLY, [facility] MELLY BILLY, BILLY Unavailable Unavailable [facility] Unavailable Unavailable HOSPITALS, [facility], Unavailable Unavailable [facility] Unavailable Un[facility], Unavailable [facility], Unavailable [facility]available [facility] Purpose Continuity of Care Document - 06-01-2014 through 2016 Problems Code Diagnosis DOS Provider Status J449 CHRONIC 10-03-2016 [facility] DISEASE UNS I10 ESSENTIAL 09-27-2016 [facility] AGENCY HYPERTENSIO ON ESDRAS N E039 HYPOTHYROID 09-22-2016 [facility] ISM PHYSICIANS UNSPECIFIED GROUP [id number] OTHER 09-10-2016 [facility] MEDICAL EQUIPME N3281 OVERACTIVE 09-03-2016 [facility] BLADDER PHYSICIANS GROUP N3941 URGE 09-03-2016 [facility] INCONTINENC PHYSICIANS E GROUP H2513 AGE-RELATED 08-18-2016 [facility] BILATERAL R922 INCONCLUSIV 07-31-2016 [facility] R928 OTH ABNORM 07-31-2016 [facility] IN[facility]CLUS[facility] IM[facility]ING ASS E FIND ON DX IMAG BREAST E785 HYPERLIPIDE 07-09-2016 [facility] RADHA PHYSICIANS UNSPECIFIED GROUP R0789 OTHER CHEST 07-09-2016 [facility] PAIN PHYSICIANS GROUP R69 ILLNESS 07-09-2016 [facility] UNSPECIFIED TRANSPORTAT ION SER K219 GASTRO-ESOP 06-30-2016 [facility] DISEASE HOSPITALS WITHOUT ESOPHAGITIS 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 [facility] GOITER PHYSICIAN UNSPECIFIED GROUP E069 THYROIDITIS 06-18-2016 [facility] PHYSICIAN UNSPECIFIED GROUP E8352 HYPERCALCEM 06-18-2016 [facility] IA PHYSICIAN GROUP 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 06-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 [facility] 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 ANGINA PECTORIS K469 UNS 06-18-2016 [facility] ABDOMINAL PHYSICIAN HERNIA W/O GROUP OBSTRUCTION OR GANGRENE N3946 MIXED 06-18-2016 [facility] INCONTINENC PHYSICIANS E GROUP E119 TYPE 2 04-22-2016 [facility] DIAB[facility]ES [facility] MELLITUS INC WITHOUT COMPLICATIO NS E669 OBESITY 04-22-2016 [facility] UNSPECIFIED PHYSICIANS GROUP R0602 SHORTNESS 04-22-2016 [facility] OF BREATH [facility] INC N07246 UNSPECIFIED 04-18-2016 [facility] UNCOMPLICAT MEDICAL ED EQUIPME R0600 DYSPNEA 04-15-2016 [facility] UNSPECIFIED PHYSICIANS GROUP R110 NAUSEA 03-31-2016 [facility] AM[facility]ULANCE SE R42 DIZZINESS 03-31-2016 [facility] SE M150 PRIMARY 03-03-2016 [facility] GENERALIZED HOME MEDICAL OSTEOARTHRI EQUIPME TIS M533 SACROCOCCYG 03-03-2016 [facility] EAL HOME DISORDERS MEDICAL NEC EQUIPME M549 DORSALGIA 03-03-2016 [facility] UNSPECIFIED HOME MEDICAL EQUIPME P35267 DIFFUSE 02-28-2016 ARELLANO MONSTER OTITIS EXTERNA BILATERAL H6903 PATULOUS 02-28-2016 ARELLANO MONSTER EUSTACHIAN TUBE BILATERAL H905 UNSPECIFIED 02-28-2016 [facility] PHYSICIANS SENSORINEUR GROUP AL HEARING LOSS G4733 OBSTRUCTIVE 02-27-2016 [facility] SLEEP HOME APNEA ADULT MEDICAL PEDIATRIC EQUIPME R079 CHEST PAIN 02-14-2016 [facility] UNSPECIFIED [facility] INC G4730 SLEEP APNEA 02-12-2016 [facility] UNSPECIFIED INC H6590 UNSPECIFIED 02-01-2016 [facility] PHYSICIANS NONSUPPURAT GROUP MIGUE OTITIS MEDIA UNS EAR R040 EPISTAXIS 02-01-2016 [facility] PHYSICIANS GROUP Z1231 ENCOUNTER 01-25-2016 [facility] MALIG IMAGING ASS NEOPLASM BREAST G8929 OTHER 01-07-2016 [facility] CHRONIC PHYSICIANS PAIN GROUP D649 ANEMIA 12-27-2015 [facility] J342 DEVIATED 12-13-2015 [facility] NASAL PHYSICIANS SEPTUM GROUP I351 NONRHEUMATI 12-07-2015 [facility] AORTIC SERV VALVE FOUNDATION INSUFFICIEN CY I358 OTHER 12-07-2015 [facility] NONRHEUMATI MEM [facility]OS[facility] C AORTIC INC VALVE DISORDERS J432 CENTRILOBUL 12-07-2015 [facility] EMPHYSEMA IMAGING ASS J984 OTHER 12-07-2015 [facility] DISORDERS [facility] OF [place]UN[place] INC Z862 PERSONAL HX 12-07-2015 [facility] DZ [facility] BLOOD&BLOOD INC FORM ORGN IMMUNE MECH B351 TINEA 11-29-2015 [facility] PLACIDO UNGUIUM I890 LYMPHEDEMA 11-29-2015 [facility] PLACIDO NOT ELSEWHERE CLASSIFIED M2570 OSTEOPHYTE 11-29-2015 [facility] PLACIDO UNSPECIFIED JOINT G06359 PAIN IN 11-29-2015 [facility] PLACIDO RIGHT TOES B69656 PAIN IN 11-29-2015 [facility] PLACIDO LEFT TOES H51078 PRIMARY 11-28-2015 [facility] TIS RIGHT IMAGING ASS HAND L04265 PAIN IN 11-28-2015 [facility] HAND MEDICAL IMAGING ASS M7989 OTHER 11-28-2015 [facility] SPECIFIED MEDICAL SOFT TISSUE IMAGING ASS DISORDERS R0902 HYPOXEMIA 11-28-2015 [facility] R109 UNSPECIFIED 11-28-2015 [facility] ABDOMINAL SERV PAIN FOUNDATION U8981RN UNS FX RT 11-28-2015 [facility] WRIST HAND SERV INITIAL ENC FOUNDATION CLOS FRACTURE Z8673 PERSONAL HX 11-28-2015 [facility] TIA & MEM [facility] CEREB INC INFARCT NO RESID DEFICIT O56886 PERSONAL 11-28-2015 [facility] HISTORY OF MEM [facility]OS[facility] OTHER INC SPECIFIED CONDITIONS H6092 UNSPECIFIED 11-22-2015 [facility] OTITIS PHYSICIANS EXTERNA GROUP LEFT EAR J029 ACUTE 11-22-2015 [facility] PHARYNGITIS PHYSICIANS GROUP UNSPECIFIED L989 DISORDER 11-19-2015 [facility] THE SKIN & PHYSICIANS SUBCUTANEOU GROUP S TISSUE UNS I209 ANGINA 11-13-2015 [facility] PECTORIS PHYSICIANS UNSPECIFIED GROUP U91256 PERSONAL 10-24-2015 [facility] HISTORY OF SERV NICOTINE FOUNDATION DEPENDENCE G57070 ASHD CHITIMACHA 10-08-2015 [facility] COR ARTREY PHYSICIANS W/UNS GROUP ANGINA PECTORIS B078 OTHER VIRAL 09-27-2015 [facility] PLACIDO WARTS E22714 PAIN IN 09-27-2015 [facility] PLACIDO LEFT FOOT N952 POSTMENOPAU 08-29-2015 [facility] TIFFANY PHYSICIANS ATROPHIC GROUP VAGINITIS R350 FREQUENCY 08-29-2015 [facility] OF PHYSICIANS MICTURITION GROUP R351 NOCTURIA 08-29-2015 [facility] PHYSICIANS GROUP E042 NONTOXIC 07-18-2015 [facility]IN[facility] R GOITER IMAGING ASS H03883 PAIN IN 06-04-2015 [facility] RIGHT LEG [facility] INC H78551 PAIN IN 06-04-2015 [facility] RIGHT LOWER MEDICAL LEG IMAGING ASS Y15966 ACUTE EMBO 06-03-2015 [facility] THROMB UNS [facility] DEEP VEINS INC RT LOWER EXTREM L309 DERMATITIS 06-03-2015 [facility] UNSPECIFIED [facility] INC E14268 PAIN IN 06-03-2015 [facility] RIGHT KNEE PHYSICIANS, [facility] E780 PURE 05-28-2015 [facility] H8110 BENIGN 05-28-2015 [facility] UNSPECIFIED EAR H8112 BENIGN 05-28-2015 [facility] PHYS LEFT EAR 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 [facility]RENT [facility] [place] Y11444 OTHER LONG 05-28-2015 [facility] DRUG THERAPY G4710 HYPERSOMNIA 05-01-2015 ANNAMARIE ALMAGUER MD UNSPECIFIED CONSULTING SRV G478 OTHER SLEEP 04-28-2015 [place] DISORDERS [facility] M5383 OTHER SPEC 04-28-2015 [facility] DORSOPATHIE [facility] CERVICOTHOR ACIC REGION R0683 SNORING 04-28-2015 [facility] E041 NONTOXIC 04-04-2015 [facility] SINGLE [facility] THYROID INC NODULE 2449 UNSPECIFIED 02-16-2015 [facility] HYPOTHYROID IMAGING ASS ISM 77716 DYSPHAGIA 02-16-2015 [facility]PECIFIED [facility] IMAGING ASS 4139 OTHER AND 02-14-[address] [facility] UNSPECIFIED HEALTH ANGINA MEDICAL G PECTORIS 84950 CHEST PAIN 02-14-[address] UNSPECIFIED HEALTH MEDICAL G 2720 PURE 02-04-2015 [facility] 4019 UNSPECIFIED 02-04-2015 [place] ESSENTIAL [facility] HYPERTENSIO HOSPITAL N 496 CHRONIC 02-04-2015 [facility] AIRWAY [facility] OBSTRUCTION HOSPITAL NEC 49132 ESOPHAGEAL 02-04-2015 [place] REFLUX [facility] 7804 DIZZINESS 02-04-2015 [facility] N EMERGENCY GIDDINESS PHYS 66241 NAUSEA WITH 02-04-2015 [place] VOMITING [facility] V5869 LONG-TERM 02-04-2015 [facility] (CURRENT) [facility] USE OF HOSPITAL OTHER MEDICATIONS 70398 GEN 02-01-2015 [facility] OSTEOARTHRO HOME SIS MEDICAL INVOLVING EQUIPME MULTIPLE SITES 7245 UNSPECIFIED 02-01-2015 [facility] BACKACHE HOME MEDICAL EQUIPME 28085 OTHER 02-01-2015 [facility] DISORDER OF HOME COCCYX MEDICAL EQUIPME 00879 UNSPECIFIED 01-05-2015 [facility] URINARY HOME INCONTINENC MEDICAL E EQUIPME 93105 VOMITING 10-25-2014 [place] ALONE [facility] V5866 LONG-TERM 10-25-2014 [place] USE OF [facility] 7295 PAIN IN 10-20-2014 [facility] [place] SOFT [facility] TISSUES OF LIMB 9594 INJURY 10-20-2014 [place] OTHER AND COMMUNITY UNSPECIFIED HOSPITAL HAND EXCEPT FINGER 4659 ACUTE URIS 09-28-2014 [facility] OF [facility] UNSPECIFIED HOSPITAL SITE 53639 PAIN IN 09-28-2014 [facility] [place] JOINT, RADIOLOGY LOWER LEG 60764 DEHYDRATION 07-31-2014 [facility] N EMERGENCY PHYS 2768 HYPOPOTASSE 07-31-2014 [facility] RADHA N EMERGENCY PHYS 4660 ACUTE 07-31-2014 [facility] BRONCHITIS N EMERGENCY PHYS 95400 OTHER CHEST 07-31-2014 [facility] PAIN N EMERGENCY PHYS V143 PERSONAL 07-31-2014 [place] HISTORY COMMUNITY ALLERGY [facility] ANTI-INFECT MIGUE AGT V146 PERSONAL 07-31-2014 [place] HISTORY OF [facility] ALLERGY TO HOSPITAL ANALGESIC AGENT 7851 PALPITATION 07-25-2014 ANNAMARIE Rose MD CONSULTING SRV 4011 ESSENTIAL 07-20-2014 [facility] [facility] 7197 DIFFICULTY 07-20-2014 [place] IN WALKING [facility] 00547 SHORTNESS 07-20-2014 ANNAMARIE ALMAGUER OF BREATH CONSULTING SRV 43881 PRECORDIAL 07-20-2014 ANNAMARIE ALMAGUER PAIN CONSULTING SRV 59996 OCCLUSION&S 07-04-2014 ANNAMARIE DIOP MD CAROTID ART CONSULTING W/O SRV MENTION INFARCT 2809 UNSPECIFIED 06-23-2014 [facility] IRON [facility] DEFICIENCY HOLDINGS ANEMIA 5939 UNSPECIFIED 06-23-2014 [facility] DISORDER [facility] OF KIDNEY HOLDINGS AND URETER 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 7294 UNSPECIFIED 06-20-2014 [facility] [place] FASCIITIS RADIOLOGY 82836 SCOLIOSIS , 06-20-2014 [facility] IDIOPATHIC [place] E8889 UNSPECIFIED 06-02-2014 LAB [facility] FALL [facility] HOLDINGS 8470 NECK SPRAIN 06-01-2014 [facility] STRAIN N EMERGENCY PHYS 920 CONTUSION 06-01-2014 [facility] FACE N EMERGENCY SCALP AND PHYS NECK EXCEPT EYE 9219 UNSPECIFIED 06-01-2014 [facility] CONTUSION N EMERGENCY OF EYE PHYS 20769 CONTUSION 06-01-2014 [facility] OF HAND N EMERGENCY PHYS 9248 CONTUSION 06-01-2014 [place] OF MULTIPLE COMMUNITY SITES [facility] 45598 INJURY OF 06-01-2014 [facility] [place] FACE AND RADIOLOGY NECK OTHER AND UNSPECIFIED 73000 OTHER 06-01-2014 [facility] [place] INJURY OF RADIOLOGY CHEST WALL 9596 INJURY 06-01-2014 [facility] [place] OTHER AND RADIOLOGY UNSPECIFIED HIP AND THIGH V1582 PERS HX 06-01-2014 [place] TOBACCO USE COMMUNITY [facility] Procedures Procedure DOS Code Location Performer Comment [facility] Q0513 YOUR YOUR DISPENSIN 7 PHARMACY PHARMACY G FEE [place] INHALATIO N RX; PER 30 DAYS IPRATROPI J7644 YOUR YOUR UM 7 PHARMACY PHARMACY BROM[facility] [employer] INHAL NON-CP U DOSE PER MG [...] S5108 [facility] TRAINING 7 AREA AREA [place] AGENCY ON AGENCY ON CARE ESDRAS ESDRAS CLIENT PER 15 MIN HOME CARE S5108 [facility] [facility] TRAINING 7 AREA AREA HOME AGENCY ON AGENCY ON CARE ESDRAS ESDRAS CLIENT PER 15 MIN HOME CARE S5108 [place] [facility] TRAINING 7 AREA [facility] HOME AGENCY ON AGENCY ON CARE ESDRAS ESDRAS CLIENT PER 15 MIN HOME CARE S5108 [place] [facility] TRAINING 7 AREA AREA HOME AGENCY ON AGENCY ON CARE ESDRAS ESDRAS CLIENT PER 15 MIN FILTER A7013 [facility] CHRISTIANSON DISPOSABL 7 HOME HOME MEDICAL MEDICAL W/AREOSOL EQUIPME EQUIPME COMPRESS/ US GENERATOR MISC TX T1999 [facility] ITEMS & 7 AREA AREA [facility] AGENCY ON AGENCY ON RETAIL ESDRAS ESDRAS PURCHASE NOC COLLECTIO 74667 [facility] PIRES N VENOUS 7 [facility] [place] [address] [facility] PIRES FREE 7 [facility] [place] [address] [facility] PIRES THYROID 7 [facility] HOSP STIMULATI INC INC NG HORMONE TSH HOME CARE S5108 [place] [facility] TRAINING 7 AREA AREA HOME AGENCY ON AGENCY ON CARE ESDRAS ESDRAS CLIENT PER 15 MIN HOME CARE S5108 [place] [facility] TRAINING 7 AREA AREA HOME AGENCY ON AGENCY ON CARE ESDRAS EDSRAS CLIENT PER 15 MIN AREO MASK A7015 YOUR YOUR USED W/ 7 PHARMACY PHARMACY [employer]ME [employer] FILTER A7013 YOUR YOUR DISPOSABL 7 PHARMACY PHARMACY [facility] W/AREOSOL COMPRESS/ US GENERATOR HOME CARE S5108 [...] CARE ESDRAS ESDRAS CLIENT PER 15 MIN [facility] [address] [place] [address] [facility] COMPRHNSV ESTAB PT 1/ [...] YOUR DISPENSIN 7 PHARMACY PHARMACY G FEE [place] INHALATIO N RX; PER 30 DAYS IPRATROPI J7644 YOUR YOUR UM 7 PHARMACY PHARMACY BR[facility] [employer] INHAL NON-CP U DOSE PER MG ADMN SET A7005 YOUR YOUR W/SM VOL 7 PHARMACY PHARMACY NONFILTR [employer] NEBULIZR NON-DISPB L HOME CARE S5108 [...] [facility] BL[facility]GRASS ITEMS & 7 AREA AREA [facility] AGENCY ON AGENCY ON RETAIL ESDRAS [...] ESDRAS CLIENT PER 15 MIN DIAGNOSTI G0206 [place] [facility] C 7 MEDICAL MAMMOGRAP IMAGING HY [...] AREA HOME AGENCY ON AGENCY ON CARE EDSRAS ESDRAS CLIENT PER 15 MIN HOME CARE [...] W/AREOSOL EQUIPME EQUIPME COMPRESS/ US GENERATOR ECG 04409 [facility] PIRES ROUTINE 7 MEM [facility] ECG INC INC W/LEAST 12 LDS TRCG ONLY W/O I&R NONEMERG A0120 FEDERATED FEDERATED TRNSPRT: 7 [facility]SP[facility]ARE S5108 [facility] BL[facility] TRAINING 7 [...] FEDERATED TRNSPRT: 7 [facility] TRANSPORT [facility] MT [facility]ARE S5108 [facility] [facility] TRAINING 7 [...] ESDRAS ESDRAS CLIENT PER 15 MIN BLOOD 01525 [place] COUNT 7 [facility] COMPLETE E E [facility] COLLECTIO 23573 [place] N VENOUS 7 [facility]ALTHCAR [facility] B[facility] S5108 [facility] BLUE[facility] TRAINING [...] CARE ESDRAS ESDRAS CLIENT PER 15 MIN [facility] TX T1999 [facility]UE[facility]ASS ITEMS & 6 AREA AREA [facility] AGENCY ON AGENCY ON RETAIL ESDRAS [...] ESDRAS ESDRAS CLIENT PER 15 MIN [facility] T1999 [place] [facility] ITEMS & 6 AREA [...] ESDRAS ESDRAS CLIENT PER 15 MIN LIPID 36786 [facility] PIRES PANEL 6 [facility] H[facility] INC INC BLOOD 12509 [facility] PIRES COUNT 6 [facility]OS[facility] COMPLETE INC INC AUTO&AUTO DIFRNTL WBC COMPREHEN 75691 [facility] PIRES SIVE 6 MEM H[facility] [place] [address] [facility] PIRES THYROID 6 MEM HOS[facility] MEM HOS[facility] STIMULATI [place] [address] [facility] PIRES FREE 6 MEM HOSP MEM [...] YOUR DISPENSIN 6 PHARMACY PHARMACY G [place]EE [place] INHALATIO N RX; PER 30 DAYS IPRATROPI J7644 YOUR YOUR UM 6 PHARMACY PHARMACY BR[facility] [employer] INHAL NON-CP U DOSE PER MG ECG 38356 PRANA[facility] PRANAY ROUTINE 6 [facility] H[facility] ECG INC INC W/LEAST 12 LDS TRCG ONLY W/O I&R HOME CARE S5108 [facility] BLUEGRASS TRAINING 6 AREA AREA HOME AGENCY ON AGENCY ON CARE ESDRAS ESDRAS CLIENT PER [address] [facility] ROUTINE 6 PHYSICIAN MAT ECG S GROUP [...] ESDRAS ESDRAS CLIENT PER [address] [facility] ROUTINE 6 PHYSICIAN MAT ECG S GROUP W/LEAST 12 LDS I&R ONLY ECG 78098 [facility] PRANAY ROUTINE 6 MEM HOSP MEM [...] AREA HOME AGENCY ON AGENCY ON CARE EDSRAS ESDRAS CLIENT PER 15 MIN HOME CARE [...] PER 15 MIN GROUND A0425 PORFIRIO WANEAGE [address] [place] [address] PER AMBULANCE AMBULANCE STATUTE SE SE MILE AMB A0427 P[facility]FIRIO MONROY [facility]ICE [address] [place] [address] ALS AMBULANCE AMBULANCE EMERGENCY [place] [address] GALLITO HORNER ALL HEAD/BRAI 6 MEDICAL N [...] YOUR DISPENSIN 6 PHARMACY PHARMACY G [place]EE [place] INHALATIO N RX; PER 30 DAYS IPRATROPI J7644 YOUR YOUR UM 6 PHARMACY PHARMACY [facility] [employer] INHAL NON-CP U DOSE PER MG [...] HOME HOME 85%/>02 MEDICAL MEDICAL CONC AT [facility] FLW RATE HOME CARE S5108 [facility] [facility] TRAINING 6 AREA AREA HOME AGENCY ON AGENCY ON CARE ESDRAS ESDRAS CLIENT PER 15 MIN HOME CARE S5108 [place] [facility] TRAINING 6 AREA AREA HOME AGENCY ON AGENCY ON CARE ESDRAS ESDRAS CLIENT PER 15 MIN COMPRE 00304 EILEEN ARELLANO AUDIOMETR 6 MONSTER MONSTER Y THRESHOLD EVAL SP RECOGNIJ TYMPANOME 32737 EILEEN ARELLANO TRY 6 MONSTER MONSTER MISC [...] ESDRAS ESDRAS CLIENT PER 15 MIN ECG 58170 [facility] PIRES ROUTINE 6 [facility] ECG INC INC W/LEAST 12 LDS TRCG ONLY W/O I&R ECG 47479 [facility] ROUTINE 6 PHYSICIAN MAT ECG S GROUP W/LEAST 12 LDS I&R ONLY HOME CARE S5108 [facility] BLUE[facility]ASS TRAINING 6 AREA AREA HOME AGENCY ON AGENCY ON CARE ESDRAS ESDRAS CLIENT [place] [address] [facility] PIRES THYROID 6 MEM HOS[facility] HOS[facility] STIMULAT[place] [address] [facility] PIRES FREE 6 MEM HOSP MEM HOSP THYROXINE INC INC COLLECTIO 98124 PRANA[facility] PIRES N VENOUS 6 [facility] BLOOD INC INC VENIPUNCT URE POLYSOM 89480 PR[facility] PIRES 6/>YRS 6 MEM HOSP MEM [...] YOUR YOUR UM 6 PHARMACY PHARMACY [facility] [employer] INHAL NON-CP U DOSE PER MG COMPUTER- 97577 [facility] PIRES AIDED 6 [facility] HOS[facility] DETECTION INC INC SCREENING MAMMOGRAP HY ADMN SET A7005 YOUR YOUR W/SM VOL 6 PHARMACY PHARMACY NONFILTR [employer] NEBULIZR NON-DISPB L SCREENING G0202 [facility] PIRES 6 [facility]OS[facility]OS[facility] MAMMOGRAP INC INC HY AUDIE INCL CAD WHEN PERFORMD PHRM Q0513 YOUR YOUR DISPENSIN 6 PHARMACY PHARMACY G FEE [employer] INHALATIO N RX; PER 30 DAYS [...] CARE ESDRAS ESDRAS CLIENT PER 15 MIN [facility] [place] T1999 [place] [facility] ITEMS & 6 [...] MEDICAL AIRWAY EQUIPME EQUIPME PRESSURE DEVICE COLLECTIO 88808 [facility] N VENOUS 6 Y Y BLOOD [facility] [place] [address] [facility] 6 Y Y [facility] HOME CARE S5108 [place] [facility] 6 AREA AREA HOME AGENCY ON AGENCY ON CARE ESDRAS ESDRAS CLIENT PER [address] B[address] [facility] COUNT 6 Y Y [facility] AUTOMATED HOME CARE S5108 [place] TRAINING [...] ESDRAS ESDRAS CLIENT PER 15 MIN COMPREHEN 36797 [facility] P[facility]ES SIVE 6 [facility] METABOLIC INC INC PANEL BLOOD 49554 [facility] P[facility]ES COUNT 6 [facility] MEM [...] ESDRAS ESDRAS CLIENT PER 15 MIN ECHO 29744 [facility] S[facility] TTHRC R-T 6 MEDICAL 2D SERV W/WOM-MOD FOUNDATIO E COMPL N SPEC&[place] [address] [place] [facility] MAXILLOFA 6 MEDICAL CIAL W/O IMAGING CONTRAST ASS MATERIAL CT THORAX 15548 [place] [facility] W/O 6 MEDICAL CONTRAST IMAGING [...] HOME HOME 85%/>02 MEDICAL MEDICAL CONC AT EQUIPHI EQUIPHI PRSC FLW RATE HOME CARE S5108 [place] [facility] 6 AREA AREA HOME AGENCY ON AGENCY ON CARE ESDRAS ESDRAS CLIENT PER 15 MIN HOME CARE S5108 [place] [facility] 6 AREA AREA HOME AGENCY ON AGENCY ON CARE ESDRAS ESDRAS CLIENT PER 15 MIN DEBRIDEME 56242 [facility] TESSIE NT NAIL 6 PLACIDO AVTAR ANY METHOD 6/> RADEX 97884 [place] [place] HAND 2 6 MEDICAL VIEWS IMAGING ASS RADEX 64216 [facility] ABDOMEN 1 6 Y Y HOSPITAL [facility] ANTEROPOS TERIOR VIEW IMMUNOASS 37874 [facility] AY 6 Y Y ANALYTE [facility] QUAL/SEMI QUAL MULTIPLE STEP CYANOCOBA 19507 [facility] PASHA 6 Y Y VITAMIN [facility] B-[address] [place] [address] [facility] FERRITIN 6 Y Y HOSPITAL [facility] HOME CARE S5108 [place] [facility] 6 AREA AREA HOME AGENCY ON AGENCY ON CARE ESDRAS ESDRAS CLIENT PER 15 [place] [address] [facility] FOLIC 6 Y Y ACID [facility] SERUM COMPREHEN 21122 [facility] SIVE 6 Y Y METABOLIC [facility] PANEL HST G0399 [facility] PIRES W/TYPE 6 [facility] III INC INC PRTBLE MON UNATTENDE D MIN 4 CH RADEX 17726 [facility]ES HAND 6 [facility] MINIMUM 3 INC INC VIEWS COLLECTIO 23436 [facility] UNIVERS N VENOUS 6 Y Y BLOOD [facility] VENIPUNCT URE C-REACTIV 37878 [facility] UNIVERS E PROTEIN 6 Y Y HOSPITAL [facility] IRON 90993 [facility] BINDING 6 Y Y CAPACITY [facility] BLOOD 95207 [facility] COUNT 6 Y Y COMPLETE [facility] AUTOMATED CONTINUOU E0601 SAMMY CHRISTIANSON S [...] ESDRAS ESDRAS CLIENT PER 15 MIN ECG 35351 PRANAY [facility]ANAY ROUTINE 6 [facility] ECG INC INC W/LEAST 12 LDS TRCG ONLY W/O I&R PULMONARY 00109 [place] PE[facility]CE STRESS 6 MEDICAL JAM TESTING SERV SIMPLE FOUNDATIO N GAS 41029 PRANAY PIRES DILUT/WAS 6 [facility] HOUT LUNG INC INC VOL W/WO DISTRIB VENT&[place] [address] HUBERT PEARCE DIFFUSING 6 MEDICAL JAM CAPACITY SERV FOUNDATIO N PRESSURIZ 44404 PRANAY PIRES ED/NONPRE 6 [facility] SSURIZED INC INC INHALATIO N TREATMENT BRNCDILAT 32166 HUBERT PEARCE RSPSE 6 MEDICAL JAM SPMTRY SERV PRE&POST- FOUNDATIO BRNCDILAT N ADMN ECG 73475 [facility] KALIN ROUTINE 6 PHYSICIAN MAT ECG [...] HOME HOME 85%/>02 MEDICAL MEDICAL CONC [facility] PRSC FLW RATE HOME CARE S5108 [...] ESDRAS ESDRAS CLIENT PER 15 MIN ECG 97535 PRANAY PIRES ROUTINE 6 [facility] ECG INC INC W/LEAST 12 LDS TRCG ONLY W/O I&R HOME CARE S5108 [facility] 6 AREA AREA HOME AGENCY ON AGENCY ON CARE ESDRAS ESDRAS CLIENT PER [address] [facility] ROUTINE 6 PHYSICIAN MAT ECG S GROUP [...] ESDRAS ESDRAS CLIENT PER 15 MIN DUP-SCAN 05591 [facility] ARTL CURRY 6 MEDICAL ABDL/PEL/ IMAGING SCROT&/[place] [address] [facility] ALL RETROPERI 6 MEDICAL TONEAL [...] ON INC INC SERVICE PER HOUR NONINVASI 12286 [facility] PIRES VE 6 [facility] EAR/PULSE INC [place] [address] PRANAY PIRES TROPONIN 6 [facility] QUANTITAT INC INC MIGUE SBSQ 65960 [facility] 6 PHYSICIAN MAT CARE/DAY S GROUP 25 MINUTES HOSPITAL [id number] PRANAY PIRES OBSERVATI 6 [facility] ON INC INC SERVICE PER HOUR COLLECTIO 49779 PRANAY PIRES N VENOUS 6 [facility] BLOOD INC INC VENIPUNCT URE CREATINE 54168 PRANAY PIRES KINASE 6 [facility] TOTAL INC INC SBSQ 19400 [facility] OBSERV[facility] 6 PHYSICIAN LEIGHTON ON S GROUP CARE/DAY 15 MINUTES CREATINE 36831 PRANAY PIRES KINASE MB 6 [facility] FRACTION INC INC ONLY CREATINE 07669 PRANAY PIRES KINASE MB 6 [facility] FRACTION INC INC ONLY INITIAL 78433 [facility] 6 PHYSICIAN MAT CARE/DAY S GROUP 70 MINUTES ECG 16960 PRANAY PIRES ROUTINE 6 [facility] ECG INC INC W/LEAST 12 LDS TRCG ONLY W/O I&R CREATINE 06789 PRANAY PIRES KINASE 6 [facility] TOTAL INC INC HOME CARE S5108 [facility] 6 AREA AREA HOME AGENCY ON AGENCY ON CARE ESDRAS ESDRAS CLIENT PER 15 MIN COMPREHEN 68075 PRANAY PIRES SIVE 6 [facility] METABOLIC INC INC [facility] G0378 PRANAY PIRES OBSERVATI 6 [facility] ON INC INC SERVICE PER HOUR RADIOLOGI 58103 PRANAY PIRES C 6 [facility] EXAMINATI INC INC ON CHEST SINGLE VIEW FRONTAL ECG 64647 PRANAY GONSALES JR ROUTINE 6 [facility] W/LEAST P 12 LDS I&[place] [address] PRANAY PIRES TROPONIN 6 [facility] QUANTITAT INC INC MIGUE BLOOD 75102 PRANAY PIRES COUNT 6 [facility] COMPLETE INC INC AUTO&AUTO DIFRNTL WBC INITIAL 34745 [facility] OBSERVATI 6 PHYSICIAN LEIGHTON ON S GROUP CARE/DAY 50 MINUTES NONINVASI 64845 PRANAY PIRES VE 6 [facility] MEM [...] MEDICAL AIRWAY EQUIPME EQUIPME PRESSURE DEVICE DESTRUCTI 13648 CHIDI KURTZ ON BENIGN 6 PLACIDO AVTAR [...] AIRWAY E[place] [address] PRANAY PIRES THYROID 6 [facility] STIMULATI INC INC NG HORMONE TSH COMPREHEN 32649 PRANAY PIRES SIVE 6 [facility] METABOLIC INC INC PANEL CALCIUM 35815 PRANAY PIRES IONIZED 6 [facility] INC INC COLLECTIO 82147 PRANAY PIRES N VENOUS 6 [facility] [place] [address] PRANAY PIRES PARATHORM 6 [facility] [place] [address] PRANAY PIRES THYROXINE 6 [facility] TOTAL INC INC US SOFT 53652 PRANAY BILLY TISSUE 6 [facility] HEAD & INC NECK REAL TIME IMGE DOCM LIPID 17195 PRANAY PIRES PANEL 6 [facility] INC INC BLOOD 45925 PRANAY BILLY COUNT 6 [facility] COMPLETE [...] MEDICAL AIRWAY EQUIPME EQUIPME PRESSURE DEVICE DUP-SCAN 43375 PRANAY PIRES XTR VEINS 6 [facility] INC INC UNILATERA L/LIMITED STUDY THERAPEUT 16334 PRANAY PIRES IC 6 [facility] PROPHYLAC INC INC TIC/DX INJECTION SUBQ/IM [...] EQUIPME EQUIPME W/POS ARWAY PRESS DEVICE THER 88337 ALEXANDER MUNOZ PROPH/DX 6 [facility] NJX IV HOSPITAL HOSPITAL PUSH SINGLE/1S T SBST/DRUG COLLECTIO 17574 ALEXANDER MUNOZ N VENOUS 6 [facility] BLOOD [facility] [address] ALEXANDER MUNOZ INFUSION 6 [facility] HYDRATION [facility] EACH ADDITIONA L HOUR COMPREHEN 85242 ALEXANDER MUNOZ SIVE 6 [facility] METABOLIC [facility] PANEL URNLS DIP 43218 ALEXANDER MUNOZ 6 [facility] STICK/TAB HOSPITAL HOSPITAL LET REAGENT AUTO MICROSCOP Y BLOOD 75406 ALEXANDER MUNOZ COUNT 6 [facility] AUTO&AUTO DIFRNTL WBC O2 CONC 1 E1390 SAMMY SEVILLARELL DEL PORT 5 HOME HOME 85%/>02 MEDICAL MEDICAL CONC AT EQUIPME EQUIPME PRSC FLW RATE POLYSOM 41465 ANNAMARIE ALMAGUER ALMAGUER ANNAMARIE 6/>YRS 5 MD SLEEP 4/> CONSULTIN ADDL G SRV JESSIKA ATTND POLYSOM 56937 ALEXANDER MUNOZ 6/>YRS 5 [facility] SLEEP 4/> HOSPITAL HOSPITAL ADDL JESSIKA ATTND CALCIUM 58254 PRANAY PIRES IONIZED 5 [facility] INC INC COLLECTIO 61291 PRANAY PIRES N VENOUS 5 [facility] BLOOD INC INC VENIPUNCT URE PARATHYRO 79442 PRANAY PIRES ID PLANAR 5 [facility] HOSP IMAGING INC INC TECHNETIU A9500 PRANAY PIRES M TC-99M 5 [facility] SESTAMIBI INC INC DX PER STUDY DOSE CALCIUM 10594 PRANAY PIRES TOTAL 5 [facility] INC INC O2 CONC 1 E1390 SAMMY SEVILLARELL DEL PORT 5 HOME HOME 85%/>02 MEDICAL MEDICAL CONC AT EQUIPME EQUIPME PRSC FLW RATE O2 CONC 1 E1390 SAMMY SEVILLARELL DEL PORT 5 HOME HOME 85%/>02 MEDICAL MEDICAL CONC AT EQUIPME EQUIPME PRSC FLW RATE US SOFT 15852 PRANAY PIRES TISSUE 5 [facility] HEAD & INC INC NECK REAL TIME IMGE DOCM CATH PLMT 20135 [facility] & 5 [facility] MEDICAL W/NJX & G ANGIO IMG S&I INFUSION J7030 ALEXANDER MUNOZ NORMAL 5 [facility] SOLUTION 1000 CC COMPREHEN 17633 ALEXANDER MUNOZ SIVE 5 [facility] HOSPITAL PANEL COLLECTIO 10178 ALEXANDER MUNOZ N VENOUS 5 [facility] [place] [address] ALEXANDER MUNOZ HEAD/BRAI 5 [facility] W/O HOSPITAL [place] [address] ALEXANDER MUNOZ THYROID 5 [facility] NG HORMONE TSH NONCOVERE A9270 ALEXANDER MUNOZ D ITEM OR 5 [facility] ECG 22319 ALEXANDER MUNOZ ROUTINE 5 [facility] HOSPITAL W/LEAST 12 LDS TRCG ONLY W/O I&R ECG 96608 [facility] II ROUTINE 5 CHRIS THO ECG EMERGENCY W/LEAST PHYS 12 LDS I&R ONLY BLOOD 39344 ALEXANDER MUNOZ COUNT 5 [facility] AUTO&[place] [address] ALEXANDER MUNOZ TROPONIN 5 [facility] MIGUE O2 CONC E1390 SAMMY [...] AT EQUIPME EQUIPME PRSC FLW RATE BLOOD 53129 ALEXANDER MUNOZ COUNT 5 [facility] HOSPITAL AUTO&[place] [address] ALEXANDER MUNOZ HEAD/BRAI 5 [facility] W/O HOSPITAL HOSPITAL CONTRAST MATERIAL COLLECTIO 44601 ALEXANDER MUNOZ N VENOUS 5 [facility] VENIPUNCT URE COMPREHEN 46108 ALEXANDER MUNOZ SIVE 5 [facility] HOSPITAL PANEL THER 02299 ALEXANDER MUNOZ PROPH/DX 5 [facility] HOSPITAL PUSH SINGLE/1S T SBST/DRUG INJECTION J2405 ALEXANDER MUNOZ 5 [facility] ON HCL PER 1 MG NONCOVERE A9270 ALEXANDER MUNOZ D ITEM OR 5 [facility] RADEX 25529 ALEXANDER MUNOZ HAND 5 [place] [address] HOSPITAL HOSPITAL VIEWS O2 CONC 1 E1390 SAMMY SAMMY DEL PORT 5 HOME HOME 85%/>02 MEDICAL MEDICAL CONC AT EQUIPME EQUIPME PRSC FLW RATE BLOOD 48090 ALEXANDER MUNOZ COUNT 5 [facility] HOSPITAL AUTO&AUTO DIFRNTL WBC COMPREHEN 47391 ALEXANDER MUNOZ SIVE 5 [facility]OSPITAL PANEL COLLECTIO 51117 ALEXANDER MUNOZ N VENOUS 5 [facility] VENIPUNCT URE RADIOLOGI 10095 ALEXANDER MUNOZ C 5 [facility] HOSPITAL ON KNEE 1/2 VIEWS O2 CONC 1 E1390 SAMMY SAMMY DEL PORT 5 HOME HOME 85%/>02 MEDICAL MEDICAL CONC AT EQUIPME EQUIPME PRSC FLW RATE O2 CONC E1390 SAMMY SAMMY DEL PORT 5 HOME HOME 85%/>02 MEDICAL MEDICAL CONC AT EQUIPME EQUIPME PRSC FLW RATE CUL BACT 76336 ALEXANDER OLIVAJOCELYNPAYTON XCPT 5 [facility] HOSPITAL BLOOD/STO OL AEROBIC ISOL CUL BACT 17796 ALEXANDER OLIVAJOCELYNPAYTON AEROBIC 5 [facility] METHS DEFINITIV E EA ISOL ECG 05592 [facility] ROUTINE 5 CHRIS [facility] ECG EMERGENCY W/LEAST PHYS 12 LDS I&R ONLY BLOOD 06135 [facility] COUNT 5 [facility] HOSPITAL AUTO&[place] [address] [facility] TROPONIN 5 [facility] MIGUE CULTURE 51454 [facility] BACTERIAL [address] [place] [address] AEROBIC W/ID ISOLATES SUSCEPTIB 34203 [facility] LTY STDY 5 [facility] IAL MICRO/AGA R DILUTJ SMR PRIM 97643 [facility] SRC [address] [place] [address]/GIEM [facility] SA STAIN BCT FUNGI/ORTIZ L RADIOLOGI 89293 [facility] C [address] [place] [address] ON CHEST SINGLE VIEW FRONTAL COLLECTIO 65563 [facility] N VENOUS 5 [facility] [place] [address] [facility] INFUSION [address] [place] [address] HOSPITAL INITIAL 31 MIN-1 HOUR COMPREHEN 50269 [facility] SIVE [address] [place] [address] HOSPITAL PANEL CREATINE 13404 [facility] KINASE MB 5 [facility] HOSPITAL ONLY ECG 06187 [facility] ROUTINE 5 [facility] HOSPITAL W/LEAST 12 LDS TRCG ONLY W/O I&R CREATINE 22284 [facility] KINASE [address] [place] [address] HOSPITAL XTRNL ECG 83474 ANNAMARIE ALMAGUER ALMAGUER ANNAMARIE 5 MD CONTINUOU CONSULTIN S RHYTHM G SRV W/I&R UP TO 48 HRS CV STRS 02526 ANNAMARIE ALMAGUER ALMAGUER ANNAMARIE TST 5 MD XERS&/OR CONSULTIN RX CONT G SRV ECG I&R ONLY NONINVASI 56055 FAYETTE ALEXANDER VE [address] [place] [address] EAR/PULSE [facility] OXIMETRY OVERNIGHT MONITOR TECHNETIU A9500 BOURB[place] MUNOZ M TC-99M 5 [facility] DX PER STUDY DOSE CV STRS 13125 ALEXANDER MUNOZ TST 5 [facility]&/OR [facility] RX CONT ECG TRCG ONLY MYOCARDIA 59681 ALEXANDER MUNOZ L SPECT 5 [facility] STUDIES XTRNL ECG 35857 ANNAMARIE ALMAGUER ALMAGUER ANNAMARIE & 48 HR 5 MD RECORDING CONSULTIN G SRV NONINVASI 73776 ANNAMARIE ALMAGUER ALMAGUER ANNAMARIE VE 5 MD EAR/PULSE CONSULTIN OXIMETRY G SRV OVERNIGHT MONITOR DUPLEX 38278 ANNAMARIE ALMAGUER ALMAGUER ANNAMARIE SCAN 5 MD EXTRACRAN CONSULTIN IAL ART G SRV COMPL BI STUDY ECHO 06330 ANNAMARIE ALMAGUER ALMAGUER ANNAMARIE TTHRC R-T 5 MD 2D CONSULTIN W/WOM-MOD G SRV E COMPL SPEC&COLR D CULTURE 89924 [facility] LAB ERIC BCT 5 [facility] ISOL&PRSM [facility] PTV ID ISOLATE EA URINE CUL BACT 26797 LAB ER[facility] LAB ERIC AEROBIC 5 [facility] ADDL [facility] METHS DEFINITIV E EA ISOL PROTEIN 31185 LAB ERIC LAB ERIC TOTAL 5 [facility] XCPT [facility] REFRACTOM ETRY URINE GLUCOSE 73177 LAB ERIC LAB ERIC QUANTITAT 5 [facility]SA MIGUE BLOOD [facility] XCPT REAGENT STRIP SUSCEPTIB 54421 LAB ERIC LAB ERIC LTY STDY 5 [facility] ANTIMICRB [facility] IAL MICRO/[place] [address] LAB ERIC LAB ERIC PHOSPHATA 5 [facility] SE [facility] ALKALINE POTASSIUM 90537 LAB ERIC LAB ERIC SERUM 5 BRISSA BR[facility]SA PLASMA/WH [facility] OLE BLOOD BLOOD 96490 LAB ERIC LAB ERIC COUNT 5 [facility] RETICULOC [facility] YTE AUTOMATED PROTEIN 62003 LAB ERIC LAB ERIC XCPT 5 [facility] REFRACTOM [facility] HOLDINGS ETRY SERUM PLASMA/WH L BLD SODIUM 55597 LAB ERIC LAB ERIC SERUM 5 [facility] PLASMA OR [facility]INGS HOLDINGS WHOLE BLOOD TRANSFERA 55465 LAB ERIC LAB ERIC SE 5 [facility] ASPARTATE [place] [address] LAB ERIC LAB ERIC UREA 5 [facility] NITROGEN HOLDINGS HOLDINGS QUANTITAT MIGUE CREATININ 85942 LAB ERIC LAB ERIC E OTHER 5 [facility] BR[facility] SOURCE [facility] L[address] [facility] SPINE 5 [facility] W/O MELLY MELLY CONTRAST MATERIAL ALBUMIN 09165 LAB ERIC LAB ERIC SERUM 5 BRISSA BRISSA PLASMA/WH [facility]INGS HOLDINGS OLE BLOOD GLUCOSE 23809 LAB ERIC LAB ERIC QUANTITAT 5 BRISSA BRISSA MIGUE BLOOD [facility] HOLDINGS XCPT REAGENT STRIP PROTEIN 78888 LAB ERIC LAB ERIC XCPT 5 BRISSA [facility] REFRACTOM HOLDINGS HOLDINGS ETRY SERUM PLASMA/WH L BLD SODIUM 67068 LAB ERIC LAB ERIC SERUM 5 BRISSA BRISSA PLASMA OR HOLDINGS HOLDINGS WHOLE BLOOD POTASSIUM 59116 LAB ERIC LAB ERIC SERUM 5 BRISSA BRISSA PLASMA/[place] [address] LAB ERIC LAB ERIC PHOSPHATA 5 BRISSA BRISSA SE HOLDINGS HOLDINGS ALKALINE 25 47552 LAB ERIC LAB ERIC HYDROXY 5 BRISSA BRISSA INCLUDES HOLDINGS HOLDINGS FRACTIONS IF PERFORMED CHLORIDE 28159 LAB ERIC LAB ERIC BLD 5 BRISSA BRISSA [facility]INGS HOLDINGS CREATININ 66667 LAB ERIC LAB ERIC E BLOOD 5 [facility] [place] [address] LAB ERIC LAB ERIC UREA 5 BRISSA [facility]SA NITROGEN HOLDINGS HOLDINGS QUANTITAT MIGUE TRANSFERA 35939 LAB ERIC LAB ERIC SE 5 BRISSA BRISSA ASPARTATE HOLDINGS HOLDINGS AMINO AST SGOT BILIRUBIN 97325 LAB ERIC LAB ERIC TOTAL 5 BRISSA BRISSA HOLDINGS HOLDINGS CALCIUM 23202 LAB ERIC LAB ERIC TOTAL 5 BRISSA BRISSA HOLDINGS HOLDINGS COLLECTIO 73915 PADMINI Hanna VENOUS 5 CLINIC BLOOD VENIPUNCT URE STRAPPING 28990 [facility] [place] 5 CHRIS HAND/FING EMERGENCY ER PHYS RADEX 78741 [place] HAND 5 [facility] 3 HOSPITAL HOSPITAL VIEWS RADEX 43865 [place] RIBS 5 [facility] [address] [place] [address] ALEXANDER MUNOZ CERVICAL 5 [facility] SPINE W/O HOSPITAL HOSPITAL CONTRAST MATERIAL RADEX 03543 [facility] RACHEL RIBS UNI 5 RADIOLOGY RHO W/POSTERO ANT CH MINIMUM [address] [place] [address] ALEXANDER MUNOZ HEAD/BRAI 5 [facility] N W/O HOSPITAL HOSPITAL CONTRAST MATERIAL RADIOLOGI 72933 ALEXANDER MUNOZ C 5 [facility] ON CHEST SINGLE VIEW FRONTAL RADIOLOGI 10064 ALEXADNER NG C [address] [place] [address] ON PELVIS 1/[address] [place] [address] ALEXANDER MUNOZ MAXILLOFA 5 [facility] CIAL W/O HOSPITAL HOSPITAL CONTRAST MATERIAL Encounters Encounter Start End Date Code Location Performer Type Date OFFICE 48619 [facility] ARELLANO OUTPATIEN 7 7 PHYSICIAN T VISIT S GROUP 15 MINUTES OFFICE 07448 [facility] OUTPATIEN 7 7 PHYSICIAN T VISIT S GROUP 15 MINUTES HOSPITAL PRANAY - OTHER 7 7 [facility] INC OFFICE 76323 [facility] GARCIA OUTPATIEN 7 7 PHYSICIAN T VISIT S GROUP 15 MINUTES HOSPITAL PRANAY - 7 7 [facility] OUTPATIEN INC T OFFICE 33396 [facility] KALIN OUTPATIEN 7 7 PHYSICIAN T VISIT S GROUP 25 MINUTES HOSPITAL PRANAY - 7 7 [facility] OUTPATIEN INC T HOSPITAL UK - 7 7 [facility] OFFICE 68409 [facility] FRYMAN OUTPATIEN 7 7 PHYSICIAN T VISIT GROUP 15 MINUTES HOSPITAL PRANAY - OTHER 6 6 MEM [facility] INC OFFICE 90103 [facility] KALIN OUTPATIEN 6 6 PHYSICIAN MAT T VISIT S GROUP 25 MINUTES HOSPITAL PRANAY - 6 6 [facility] OUTPATIEN INC T OFFICE 91062 [facility] KALIN OUTPATIEN 6 6 PHYSICIAN MAT T VISIT S GROUP 25 MINUTES HOSPITAL PRANAY - 6 6 [facility] OUTPATIEN INC T OFFICE 34851 [facility] ARELLANO OUTPATIEN 6 6 PHYSICIAN MONSTER T VISIT S GROUP 10 MINUTES HOSPITAL PRANAY - 6 6 [facility] OUTPATIEN [facility] H[facility]PITAL PRANAY - 6 6 MEM [facility] OUTPATIEN [facility] T OFFICE 96929 [facility] ARELLANO OUTPATIEN 6 6 PHYSICIAN MONSTER T VISIT S GROUP 10 MINUTES HOSPITAL PRANAY - 6 6 MEM [facility] OUTPATIEN [facility] T OFFICE 15986 [facility] MALISSA MAR OUTPATIEN 6 6 PHYSICIAN T NEW 30 S GROUP MINUTES HOSPITAL [facility]ERS[facility] - 6 6 [facility] 08071 [facility] ARELLANO OUTPATIEN 6 6 PHYSICIAN MONSTER T VISIT S GROUP 10 MINUTES HOSPITAL PRANAY - OTHER 6 6 MEM [facility] PRANAY - 6 6 MEM H[facility] OUTPATIEN [facility] T OFFICE 26855 [facility] GARCIA OUTPATIEN 6 6 PHYSICIAN EMERY T VISIT S GROUP 15 MINUTES OFFICE 27251 [place] PEARCE OUTPATIEN 6 6 MEDICAL JAM T VISIT SERV 25 FOUNDATIO MINUTES [facility] UNIVERSIT - 6 6 [facility] OFF[facility] 76641 [facility] ARELLANO OUTPATIEN 6 6 PHYSICIAN MONSTER T VISIT S GROUP 10 MINUTES OFFICE 15457 [facility] ISMA TOD OUTPATIEN 6 6 PHYSICIAN T VISIT S GROUP 15 MINUTES HOSPITAL PRANAY - 6 6 MEM [facility] OUTPATIEN [facility] T OFFICE 38837 [facility] KALIN OUTPATIEN 6 6 PHYSICIAN MAT T VISIT S GROUP 25 MINUTES OFFICE 97924 [place] RAMSES OUTPATIEN 6 6 MEDICAL JAM T NEW 45 SERV MINUTES FOUNDATIO N OFFICE 40323 [facility] KALIN OUTPATIEN 6 6 PHYSICIAN MAT T VISIT S GROUP 25 MINUTES HOSPITAL PRANAY - 6 6 [facility] OUTPATIEN INC T HOSPITAL PRANAY - 6 6 [facility] OUTPATIEN [facility] T EMERGENCY 58733 [facility]SI[facility] DEPT 6 6 PHYSICIAN U SERA VISIT [facility] HIGH SEVERITY& THREAT FUNJ EMERGENCY 68282 [facility] T VISIT HIGH/URGE NT SEVERITY HOSPITAL PRANAY - 6 6 [facility] OUTPATIEN INC T OFFICE 30017 CHIDI TESSIE OUTPATIEN 6 6 PLACIDO AVTAR T NEW 30 MINUTES OFFICE 00385 [facility] GARCAI OUTPATIEN 6 6 PHYSICIAN EMERY T VISIT S GROUP 15 MINUTES OFFICE 60036 [facility] GARCIA OUTPATIEN 6 6 PHYSICIAN EMERY T NEW 45 S GROUP MINUTES HOSPITAL PRANAY - 6 6 [facility] OUTPATIEN INC T HOSPITAL PRANAY - 6 6 [facility] OUTPATIEN [facility] T HOSPITAL PRANAY - 6 6 [facility] OUTPATIEN [facility] T EMERGENCY 93828 PRANAY 6 6 [facility] T VISIT LOW/MODER SEVERITY EMERGENCY 62912 [facility] 6 6 PHYSICIAN U SERA [facility], [facility] T VISIT MODERATE SEVERITY HOSPITAL BOJOCELYNON - 6 6 [facility] EMERGENCY 51495 [facility] 6 6 [facility] T VISIT HIGH/URGE NT SEVERITY EMERGENCY 51794 [facility] 6 6 CHRIS SERA VISIT EMERGENCY HIGH PHYS SEVERITY& THREAT [facility] [place] - 5 5 [facility] HOSPITAL PRANAY - 5 5 [facility] - 5 5 [facility]158 [facility] 5 5 [facility] 45 MEDICAL MINUTES G EMERGENCY 89665 [facility] 5 [facility] T VISIT HIGH/URGE NT SEVERITY EMERGENCY 54645 [facility] DE[facility] 5 5 CHRIS THO VISIT EMERGENCY HIGH PHYS SEVERITY& THREAT FUN [facility] [place] - 5 5 [facility] EM[facility]GENCY [id number] [facility] 5 5 [facility] T VISIT [facility]IGH/URGE NT SEVERITY [facility] [place] - 5 5 [facility] 5 [facility] 5 [facility] EMERGENC[facility] 26248 [facility] DEPT 5 5 [facility] VISIT EMERGENCY HIGH PHYS SEVERITY& THREAT FUN EMERGENCY 11441 [place] 5 5 [facility] T VISIT [facility]IGH/URGE NT SEVERITY [facility] 5 [facility] 5 5 [facility] 5 5 [facility] OFFICE [address]215 [place] [place] [id number] 5 [facility] T [facility]ISIT 25 MINUTES EMERGENCY 24494 [facility] DEPT 5 5 [facility] VISIT EMERGENCY HIGH PHYS SEVERITY& THREAT FUN EMERGENCY [id number] T VISIT MODERATE SEVERITY [facility] [address] T
--- OUTSIDE RECORDS SUMMARY | 2016-10-24 16:38 | External Medical Summary Rpt ---
Demographics Preferred Language French Marital Status Unknown Denominational Affiliation Unknown Race Unknown Ethnic Group Unknown Author Author , Organization [employer] Address Unknown Phone Unavailable Purpose Continuity of Care Document - through 2016 Immunization No patient found.
--- OUTSIDE RECORDS SUMMARY | 2016-10-24 16:38 | External Medical Summary Rpt ---
Author Author [employer], [employer] Organization [employer] Address Unknown Phone Unavailable Results Natriutietic peptide B [Mass/volume] in Serum or Plasma Observa Value Referen Units Interpr Notes Date tion ce etation Range Natriutie 0 - 100 pg/mL High No Oscar 2 tic informati 2017 1:15 peptide B on in PM source [Mass/vol data ume] in Serum or Plasma CBC W Auto Differential panel in Blood Observa Value Referen Units Interpr Notes Date tion ce etation Range Granulocy 1.8 - 7.8 K/mm3 Normal No Oscar 2 fariba informati 2016 1:15 [#/volume on in PM ] in source Blood by data Automated count Granulocy 37.0 - % Normal No Oscar 2 fariba/100 80.0 informati 2016 1:15 leukocyte on in PM s in source Blood by data Automated count Hematocri 37.0 - % Low No Oscar 2 t [Volume 47.0 informati 2017 1:15 on in PM Fraction] source of Blood data Hemoglobi 12.2 - g/dL Low No Oscar 2 n 16.2 informati 2016 1:15 [Mass/vol on in PM ume] in source Blood data Lymphocyt 0.7 - 4.5 K/mm3 Normal No Oscar 2 es informati 2016 1:15 [#/volume on in PM ] in source Unspecifi data ed specimen by Automated count Lymphocyt 10 - 50.0 % Normal No Oscar 2 es informati 2016 1:15 [#/volume on in PM ] in source Unspecifi data ed specimen by Automated count Erythrocy 27 - 31.2 pg Low No Oscar 2 te mean informati 2016 1:15 corpuscul on in PM ar source hemoglobi data n [Entitic mass] Erythrocy 31.8 - g/dl Normal No Oscar 2 te mean 35.4 informati 2016 1:15 corpuscul on in PM ar source hemoglobi data n concentra tion [Mass/vol ume] by Automated count Erythrocy 82.2 - fL Low No Oscar 2 te mean 97.8 informati 2016 1:15 corpuscul on in PM ar volume source [Entitic data volume] by Automated count Monocytes 0.1 - 1.0 K/mm3 Normal No Oct 2 informati 2016 1:15 [#/volume on in PM ] in source Blood by data Automated count Monocytes 1.7 - 9.3 % Normal No Oscar 2 /100 informati 2017 1:15 leukocyte on in PM s in source Blood by data Automated count Platelets 142 - 424 K/mm3 Normal No Oct 2 informati 2016 1:15 [#/volume on in PM ] in source Blood data Erythrocy 4.2 - 5.4 M/mm3 Normal No Oct 2 fariba informati 2017 1:15 [#/volume on in PM ] in source Amniotic data fluid Erythrocy 11.5 - % Normal No Oct 2 te 17.5 informati 2016 1:15 distribut on in PM ion width source [Entitic data volume] by Automated count Leukocyte 4.8 - K/mm3 Normal No Oct 2 s 10.8 informati 2016 1:15 [#/volume on in PM ] in source Blood data
--- OUTSIDE RECORDS SUMMARY | 2016-10-24 16:38 | External Medical Summary Rpt ---
Demographics Preferred Language Omani Marital Status Unknown Latter Day Affiliation Unknown Race Unknown Ethnic Group Unknown Author Author , Organization [employer] Address Unknown Phone Unavailable Purpose Continuity of Care Document - through 2016 Immunization No patient found.
[2016-10-24 17:49] VITALS: BP 158/87
[2016-10-24 19:01] VITALS: BP 134/61
[2016-10-24 19:45] VITALS: BP 154/70
[2016-10-24 21:15] VITALS: BP 154/70
[2016-10-25] VITALS: BP 145/65
[2016-10-25 04:49] VITALS: BP 177/78
--- NOTE | 2016-10-25 09:42 | Discharge Summary Standard ---
Demographics: Admit date: 10/24/16 Chief complaint: chest pain PRIMARY DIAGNOSIS: CHEST PAIN Allergies: Coded Allergies: Cephalosporins (Mild, 10/08/15) Quinolones (Mild, 10/08/15) cefuroxime (Mild, 10/08/15) cephalexin (From KEFLEX) (Mild, NA-NAUSEA 06/03/15) ciprofloxacin (From CIPRO) (Mild, NA-NAUSEA 06/03/15) levofloxacin (From LEVAQUIN) (Mild, I-RASH 06/03/15) morphine (Mild, NA-NAUSEA 06/03/15) penicillin G (Mild, 10/08/15) History of present illness: History of present illness: pt with increasing chest pain described as tightness over the last 2 weeks - worse yesterday and was admitted after seen in the [facility] ed - pt has hx of cad - no recent eval Past medical history: Family HX Family Hx Insignificant Yes Immunization HX DT/Tetanus Unknown Pneumonia Refuses TB Test in last year No General CAD? No Angina: No [place]: No Hypertension? Yes Hyperlipidemia? Yes COPD? Yes Asthma? Yes Thyroid Problems? Yes CVA? Yes Seizures? No Diabetes? No Migraines? Yes Anxiety? No Depression? Yes Cancer? No Past Surgical HX Previous Surgery?Y hysterectomy Cholecystectomy right arm surgery Current home meds: Reported Medications Hydrochlorothiazide W/Triamter (Triamterene-Hctz 37.5-25 MG Cp) 1 CAP PO DAILY Lovastatin 20 MG PO DAILY Isosorbide Mononitrate (Isosorbide Mononitrate ER) 30 MG PO DAILY Albuterol (Albuterol-Hfa Inhaler) 2 PUFF IH Q4HP PRN SHORTNESS OF AIR LISINOPRIL (Lisinopril) 40 MG PO DAILY Levothyroxine Sodium (Levothyroxine 0.075MG) 0.075 MG PO DAILY Omeprazole (Omeprazole 40MG) 40 MG PO DAILY ASPIRIN (Aspirin) 81 MG PO DAILY Metoprolol Tartrate (Metoprolol) 25 MG PO BID Sertraline Hcl (Sertraline 50MG) 25 MG PO DAILY TRAMADOL HCL (Tramadol) 50 MG PO TID PRN RANOLAZINE (RANEXA) 500 MG PO BID Meclizine Hcl (Meclizine Hydrochloride) 25 MG PO TIDP PRN DIZZY Social Hx: Smoking HX Tobacco No Alcohol Alcohol: No Hx of Drug Use Drug Use? No Patien't marital status is Patient's support system is good Review of systems: Constitutional No: fever. Eyes No: drainage. Ears, Nose, Mouth, Throat No ear pain, No epistaxis, No throat pain Respiratory shortness of breath. No: cough, wheezing. Cardiovascular chest pain, No palpitations, No syncope Gastrointestinal/Abdominal No diarrhea, No vomiting Genitourinary No: dysuria, frequency, hesitancy, hematuria. Musculoskeletal No: back pain, joint pain, joint swelling, neck pain. Skin No: rash. Neurological No: headache, seizure disorder. Psychiatric No: depressed. Exam: Lab data for last 24 hours: Laboratory Tests 10/24/16 1735: Creatine Kinase 97, CK-MB (CK-2) Rel Index 2.1, CK and CKMB Interp 2.0, Troponin I < 0.02 10/24/16 1315: B-Natriuretic Peptide 234 H 10/24/16 1315: Sodium 134 L, Potassium 3.4 L, Chloride 98, Carbon Dioxide 29, BUN 20 H, Creatinine 1.2 H, Estimated Creat Clear 57, Estimated GFR (MDRD) 44 L, Glucose 83, Calcium 10.2 H, Total Bilirubin 0.3, AST 19, ALT 22, Alkaline Phosphatase 71, Creatine Kinase 99, CK-MB (CK-2) Rel Index 2.4, CK and CKMB Interp 2.4, Troponin I < 0.02, Total Protein 7.6, Albumin 3.7, Globulin 3.9 H, Albumin/ Globulin Ratio 0.9 L, WBC 10.1, RBC 4.50, Hgb 11.7 L, Hct 34.6 L, MCV 76.9 L , RDW 16.5, Plt Count 213, Gran % 74.2, Gran # 7.5, Lymphocytes % 20.1, Monocytes % 5.7, Lymphocytes # 2.0, Monocytes # 0.6, PUBS MCHC 33.8, MCH 26.0 L Admission vital signs: 1ST Vital Signs Result Date Time Pulse Ox 98 10/24 1308 B/P 103/98 10/24 1308 Pulse 73 10/24 1308 Resp 18 10/24 1308 Temp 98.2 10/24 1649 O2 Delivery ROOM AIR 10/24 1749 O2 Flow Rate 2 10/24 1946 Exam General appearance: alert Eyes: anicteric, PERRLA ENT: dry mucous membranes Neck: no JVD Cardiovascular: regular rate & rhythm, murmur Respiratory: no respiratory distress ABD: soft Genitourinary: no hematuria Extremities: moves all Musculoskeletal: equal muscle strength Skin: dry 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 Follow up Follow up in office in: 5 DAYS with: Constanza Ramírez at [id number]
[2016-10-25 10:38] VITALS: BP 177/78
[2016-10-25 12:30] VITALS: BP 177/78
== END 2016-10-25 11:55 | disposition home or self-care (01) ==
LOC: ER 13:07 → 2ND 16:13
PROVIDERS: Emergency Medicine
DX: R07.9 Chest pain, unspecified (principal); I10 Essential (primary) hypertension; J44.9 Chronic obstructive pulmonary disease, unspecified; R06.00 Dyspnea, unspecified
CPT/HCPCS: G0378

== ENCOUNTER → 2017-01-27 | Outpatient (CLI) | payer MEDICARE, MEDICAID ==
--- NOTE | 2017-01-29 10:09 | RADIOLOGY REPORT PS360 ---
DIG MAMM-SCREEN AUDIE W/CAD CAD Screening COMPARISON: Digital mammograms 01/25/2016 and digital right mammogram 07/31/2016 INDICATION: There is no personal or family history of breast cancer. TECHNIQUE: Standard CC and MLO images were obtained. R2 CAD reviewed. FINDINGS: The breasts are composed primarily of fat with scattered fibroglandular densities in the subareolar regions bilaterally. There is faint arterial calcination in each breast and are scattered benign-appearing calcifications in each breast. There is no suspicious lesion and there are no suspicious microcalcifications. IMPRESSION: Fibrofatty parenchyma with no suspicious lesion seen recommend yearly follow-up BI-RADS CATEGORY: 2_Benign RECOMMENDED FOLLOWUP: 12M 12 MONTH FOLLOW-UP (A letter has been sent to the patient regarding results of the study.)
== END ==
LOC: RAD 16:20
DX: Z12.31 Encounter for screening mammogram for malignant neoplasm of breast (principal)
CPT/HCPCS: G0202

== ENCOUNTER → 2017-03-06 | Outpatient (CLI) | payer MEDICARE, MEDICAID ==
[2017-03-06 16:27] LABS: HEMOGLOBIN 12.2 g/dL (12.2-16.2); LYMPH # 1.7 K/mm3 (0.7-4.5)
[2017-03-06 17:20] LABS: BUN 17 mg/dL (7-18)
[2017-03-06 17:27] LABS: GFR (ESTIMATED) 48 ML/MIN (59-)
== END ==
LOC: LAB 15:53
PROVIDERS: Nurse Practitioner Family
DX: E03.9 Hypothyroidism, unspecified (principal)

== ENCOUNTER → 2017-04-13 | Outpatient (CLI) | payer MEDICARE, MEDICAID ==
[2017-04-13 09:05] VITALS: BP 140/88
[2017-04-13 09:25] VITALS: BP 160/95
--- NOTE | 2017-04-14 09:28 | RADIOLOGY REPORT PS360 ---
CT CHEST W/O CONTRAST HISTORY: Dyspnea on exertion, restrictive lung disease RESTRICTIVE LUNG DISEASE ORDERING PHYSICIAN: MAGALIE PEARCE MD PATIENT AGE: 77 years TECHNIQUE: Helical acquisition obtained without contrast. Axial, sagittal, and coronal reformatted images are generated and reviewed. COMPARISON: 12/07/2015 FINDINGS: There are coronary artery calcifications. No mediastinal or hilar mass or adenopathy. Normal heart size without evidence of pericardial thickening. Centrilobular emphysematous changes are once again noted with scattered areas of fibrosis as previously described and evidence of old granulomatous disease. No interstitial thickening. No bronchiectasis or honeycombing. No pleural or diaphragmatic calcification. No suspicious pulmonary nodules, infiltrates, or effusions. Upper abdominal images are unremarkable. No evidence of aortic aneurysm. No acute bony anomalies.. There is chronic wedging involving T12 vertebral body unchanged with mild upper thoracic scoliosis convex right IMPRESSION: Overall stable CT appearance of the chest with mild centrilobular emphysematous change and scattered areas of fibrosis
== END ==
LOC: RT 04-08 13:00 → RAD 04-08 13:45 → RT 08:59 → RAD 09:45
DX: R06.09 Other forms of dyspnea (principal); J98.4 Other disorders of lung; J44.9 Chronic obstructive pulmonary disease, unspecified